=== PATIENT | female | born 1935 | race Caucasian/White ===

== ENCOUNTER 2016-09-02 14:31 | Emergency (ER) | payer OTHER, BC ==
[~2016-09-02] VITALS: Ht 160 cm; Wt 82.8 kg
[~2016-09-02 14:31] MED LIST: ACET-1138 PO; AMOX500C3 PO; ASPEC325 PO; ATV/1 PO; CALCTAB73 PO; CHOL100010 PO; FRRG PO; IBUP-1050 PO; LISI-788 PO; MULT-190 PO; POTA10TA30 PO; PRLSR20 PO; ROPI0.5T15 PO; ROPI1TAB PO; ULT50X PO
[2016-09-02 14:37] VITALS: BP 187/85; PULSE 96; TEMP 36.8; O2SAT 97; Ht 160 cm; Wt 82.8 kg
[2016-09-02] MEDS ORDERED: ASPI81TA28 PO (15:20)
[2016-09-02] MEDS ORDERED: MAGN400T7 PO (15:20)
[2016-09-02] MEDS ORDERED: ASPI325T45 PO (15:20)
--- NOTE | 2016-09-02 15:47 | DIAGNOSTIC IMAGING REPORT ---
ULTRASOUND LEFT LOWER EXTREMITY VENOUS CLINICAL HISTORY: Left leg swelling. COMPARISON STUDY: No priors. TECHNIQUE: Real-time, grayscale, and color Doppler sonography of the deep veins of the left lower extremity was performed from the inguinal crease to the calf. Compression and augmentation were utilized. FINDINGS: There is no sonographic evidence of deep venous thrombosis identified in the left lower extremity. The common femoral, superficial femoral, and popliteal veins are patent and normally compressible. The greater saphenous vein and the profunda femoris vein at the junction with the common femoral vein are clear. The visualized calf veins are patent. A small popliteal cyst measures 5.0 x 0.6 x 4.6 cm. IMPRESSION: 1. There is no sonographic evidence of deep venous thrombosis identified in the left lower extremity. 2. Small popliteal cyst. Electronically signed by: Elliott English M.D. 09/02/2016 3:45 PM Dictated Date/Time: 09/02/2016 3:44 PM
--- NOTE | 2016-09-03 19:54 | EMERGENCY ROOM VISIT NOTE ---
History First contact with patient: 14:43 Chief Complaint: LEG PAIN,LEG INJURY Stated Complaint: POSSIBLE BLOOD CLOT IN LEG History of Present Illness The patient is a 81 year old female who presents to the Emergency Room with complaints of intermittent pain and swelling over the left lower leg. The patient states that she had a left total knee replacement done approximately 3 months ago, and she has been doing well since the surgery. She is undergoing physical therapy, and has noticed her symptoms intermittently. She thought her symptoms were related to deconditioning or the physical therapy itself. She is doing less and less therapy, and continues to note leg pain and swelling. She has not had fever or chills. No chest pain or shortness of breath. She does not report recent travel history. She is concerned about a DVT. She does not have a history of DVT or coagulopathy. Review of Systems More than 10 systems were reviewed and otherwise negative with the exception of history of present illness. Past Medical/Surgical History Medical Problems: (1) GERD (gastroesophageal reflux disease) (2) Hx of squamous cell carcinoma (3) Hypertension Nos (4) Left Knee DJD (5) Macular degeneration (6) Osteoarthritis (7) Restless legs syndrome (RLS) Surgical Problems: (1) H/O cervical spine surgery (2) H/O colonoscopy (3) History of cataract surgery (4) History of hysterectomy (5) Status post Mohs surgery Family History FH: COPD (chronic obstructive pulmonary disease) FATHER FH: rheumatic fever MOTHER ( age 48) Hypertension MOTHER Social History Smoking Status: Never Smoker Marital Status: Housing Status: lives alone Current/Historical Medications Scheduled Aspirin (Aspirin Ec), 81 MG PO QAM Cholecalciferol (Vitamin D), 5,000 INTER.UNIT PO QAM Lisinopril/Hctz (Zestoretic 20MG/25MG), 1 TAB PO QAM Lorazepam (Ativan), 1 MG PO HS Magnesium Oxide (Mg Supplement (Magnesium Oxide), 241.3 MG PO QAM Ocuvite Preservision (Ocuvite Preservision), 1 TAB PO BID Potassium Chloride (Potassium Chloride Cr), 10 MEQ PO BID Ropinirole (Requip), 1 MG PO bedtime Scheduled PRN Amoxicillin (Amoxil), 2,000 MG PO UD PRN for RN Aspirin (Aspirin), 325 MG PO DAILY PRN for TO PREVENT BLOOD CLOTS Ropinirole (Requip), 0.5 MG PO BIDM PRN for restless leg syndrome Allergies Coded Allergies: Adhesives (Verified Allergy, Unknown, RED, IRRITATION WITH TAPE, 09/02/16) Morphine (Unverified Adverse Reaction, Intermediate, VOMITING - PT REQUESTS SHE NOT RECEIVE AGAIN, 09/02/16) Physical Exam Vital Signs Date Time Temp Pulse Resp B/P Pulse Ox O2 Delivery O2 Flow Rate FiO2 09/02/16 14:37 36.8 96 18 187/85 97 Room Air Pain Rating (0-10): 2.0 Physical Exam VITALS: Vitals are noted on the nurse's note and reviewed by myself. Vital signs stable. GENERAL: Well-developed, well-nourished, female, who is in no acute distress and resting comfortably. Patient is cooperative with the examination. HEAD: Normocephalic atraumatic. HEART: Regular rate and rhythm without murmurs gallops or rubs. LUNGS: Clear to auscultation bilaterally without wheezes, rales or rhonchi. No retractions or accessory muscle use. MUSCULOSKELETAL: No muscle atrophy, erythema, or edema noted. Full range of motion without joint tenderness in all extremities. No tenderness to palpation. Normal gait. Strength 5/5 throughout. NEURO: Patient was alert and oriented to person place and time. CN II through XII grossly intact. Medical Decision & Procedures ER Provider Diagnostic Interpretation: ULTRASOUND LEFT LOWER EXTREMITY VENOUS CLINICAL HISTORY: Left leg swelling. COMPARISON STUDY: No priors. TECHNIQUE: Real-time, grayscale, and color Doppler sonography of the deep veins of the left lower extremity was performed from the inguinal crease to the calf. Compression and augmentation were utilized. FINDINGS: There is no sonographic evidence of deep venous thrombosis identified in the left lower extremity. The common femoral, superficial femoral, and popliteal veins are patent and normally compressible. The greater saphenous vein and the profunda femoris vein at the junction with the common femoral vein are clear. The visualized calf veins are patent. A small popliteal cyst measures 5.0 x 0.6 x 4.6 cm. IMPRESSION: 1. There is no sonographic evidence of deep venous thrombosis identified in the left lower extremity. 2. Small popliteal cyst. ED Course Physical exam and history were performed. Nursing notes and EMR were reviewed. Patient appears to have intermittent swelling of her left lower leg after a total knee replacement about 3 months ago. The patient does not have injury or trauma and is concerned for DVT. Ultrasound was performed and is without evidence of a DVT. I suspect the patient's discomfort may be musculoskeletal in nature. This may also be a mild complication of the surgery itself. I recommended the patient rest and elevate her leg. She should follow with her primary care physician with any ongoing or persisting symptoms. She was otherwise invited back to the ER anytime and voiced understanding of this plan. The chart was completed utilizing [employer] Speech Voice Recognition Software. Grammatical errors, random word insertions, pronoun errors, and incomplete sentences are an occasional consequence of this system due to software limitations, ambient noise, and hardware issues. Any formal questions or concerns about the content, text, or information contained within the body of this dictation should be directly addressed to the provider for clarification. . Medical Decision Differential diagnosis: Etiologies such as DVT, musculoskeletal, infection, joint effusion, trauma, lymphedema, idiopathic, CHF, as well as others were entertained.. Impression Primary Impression: Left leg swelling Departure Information Dispostion Home / Self-Care Condition GOOD Forms HOME CARE DOCUMENTATION FORM, IMPORTANT VISIT INFORMATION Patient Instructions A Signature Page, [facility] Additional Instructions You were seen and evaluated today on an emergency basis only. This is not a substitute for, or an effort to provide, complete comprehensive medical care. It is not possible to recognize and treat all injuries or illnesses in a single emergency department visit. For this reason it is recommended that you followup with your primary care physician this week for ongoing care and evaluation. You are welcome to return to the emergency department anytime with new, worsening, or concerning symptoms.
[2017-04-07] MEDS ORDERED: NRV5 PO (16:08)
== END 2016-09-02 16:30 | disposition home or self-care (01) ==
LOC: C.EDB 14:32 → C.EDD 16:30
DX: M79.89 Other specified soft tissue disorders (principal); I10 Essential (primary) hypertension; Z85.828 Personal history of other malignant neoplasm of skin; G25.81 Restless legs syndrome; M17.12 Unilateral primary osteoarthritis, left knee; Z98.49 Cataract extraction status, unspecified eye; Z90.710 Acquired absence of both cervix and uterus; Z79.82 Long term (current) use of aspirin; Z79.899 Other long term (current) drug therapy

== ENCOUNTER → 2016-10-09 | Outpatient (CLI) | payer OTHER, BC ==
[~2016-10-09] MED LIST changes: -ACET-1138 PO; -ASPEC325 PO; +ASPI325T45 PO; +ASPI81TA28 PO; -CALCTAB73 PO; +CHOL1TAB42 PO; -FRRG PO; -IBUP-1050 PO; +MAGN400C2 PO; +MAGN400T7 PO; +NRV5 PO; +PRED-301 PO; -PRLSR20 PO; -ULT50X PO
--- NOTE | 2016-10-09 14:08 | MAMMOGRAPHY REPORT ---
BILATERAL DIGITAL SCREENING MAMMOGRAM WITH CAD: 10/09/2016 CLINICAL HISTORY: Routine screening. Patient has no complaints. TECHNIQUE: Current study was also evaluated with a Computer Aided Detection (CAD) system. Bilatera l CC and MLO views were obtained. COMPARISON: Comparison is made to exams dated: 10/07/2015 mammogram, 10/30/2014 mammogram, 10/04/2014 mammogram, 10/02/2013 mammogram, 09/29/2012 mammogram, and 09/24/2011 mammogram - [facility] enter. BREAST COMPOSITION: There are scattered areas of fibroglandular density in both breasts. FINDINGS: No suspicious masses, calcifications, or areas of architectural distortion are noted in e ither breast. There has been no significant interval change compared to prior exams. Scattered bila teral benign-appearing calcifications are not significantly changed. Asymmetry in the right upper o uter quadrant is stable dating back to the 2007 exam. IMPRESSION: ACR BI-RADS CATEGORY 2: BENIGN There is no mammographic evidence of malignancy. A 1 year screening mammogram is recommended. The p atient will receive written notification of the results. Approximately 10% of breast cancers are not detected with mammography. A negative mammographic repor t should not delay biopsy if a clinically suggestive mass is present. Nichol Whitaker M.D. ah/:10/09/2016 11:57:18 Hand Tube Bender: Mallory MATHEWS(Espinoza)(Brenda), [facility] letter sent: Normal 1/2 BI-RADS Code: ACR BI-RADS Category 2: Benign
== END | disposition home or self-care (01) ==
LOC: C.MAMM 10:23
PROVIDERS: ATTEND Family Medicine
DX: Z12.31 Encounter for screening mammogram for malignant neoplasm of breast (principal)

== ENCOUNTER 2017-04-06 13:09 | Observation (INO) | payer OTHER, BC ==
[~2017-04-06] VITALS: Ht 157.5 cm; Wt 80.5 kg
[~2017-04-06 13:09] MED LIST changes: -CHOL1TAB42 PO; -MAGN400C2 PO; -NRV5 PO; -PRED-301 PO
--- NOTE | 2017-04-06 13:51 | EMERGENCY ROOM VISIT NOTE ---
History Report prepared by Oren: Sandi Shin Under the Supervision of: Dr. Lul Chapman M.D. First contact with patient: 13:31 Chief Complaint: CHEST PAIN Stated Complaint: CHEST PAIN/NECK PAIN/SHOULDER PAIN Nursing Triage Summary: Patient has been having chest/shoulder pain for several days that initially radiated down left arm. Patient has shoulder problems and related this pain to her shoulder pain. Patient went to PCP today for appt where they related she had EKG changes since her EKG in 2011. Patient states the other day her CP was intense with a dull ache. Patient states today her pain was only 3-4/10 and she almost cancelled her appt due to this. Patient recieved 324 ASA and 2 NTG at the PCP with some relief of the pain. Patient relates not N/V, diaphoresis or SOB with the pain. History of Present Illness The patient is a 81 year old female who presents to the Emergency Room with complaints of persistent left shoulder pain that began four days ago. She currently rates her discomfort as a 4/10 in severity. The patient states that she has noticed her pain radiate down her left arm and into her left chest. She reports a history of shoulder problems and states when she couldn't get in to see her massage therapist she scheduled an appointment with her PCP. The patient states that she was found to have an elevated blood pressure today at the office and had an EKG done. She states that she was given 2 nitroglycerin and 324 aspirin that alleviated her pain. The patient states that her pain was worsened yesterday with exertion. She denies any nausea, diaphoresis, or swelling of her lower extremities. The patient denies any history of blood clots. She states that she was recently started on a low dose of steroids for her arthritis. The patient additionally states that 800 mg of Ibuprofen temporarily alleviated her pain. Review of Systems See HPI for pertinent positives and negatives. A total of ten systems were reviewed and were otherwise negative. Past Medical & Surgical Medical Problems: (1) GERD (gastroesophageal reflux disease) (2) HTN (hypertension) (3) Hx of squamous cell carcinoma (4) Macular degeneration (5) Osteoarthritis (6) Restless legs syndrome (RLS) Surgical Problems: (1) H/O cervical spine surgery (2) History of cataract surgery (3) History of hysterectomy (4) Status post Mohs surgery (5) Status post total knee replacement, left (6) Status post total knee replacement, right Family History FH: COPD (chronic obstructive pulmonary disease) FATHER FH: rheumatic fever MOTHER ( age 48) Hypertension MOTHER Social History Smoking Status: Never Smoker Marital Status: Housing Status: lives alone Current/Historical Medications Scheduled Cholecalciferol (Vitamin D), 5,000 UNITS PO DAILY Lisinopril/Hctz (Zestoretic 20MG/25MG), 1 TAB PO QAM Lorazepam (Ativan), 1 MG PO HS Magnesium Oxide (Magnesium Oxide), 1 CAP PO BID Ocuvite Preservision (Ocuvite Preservision), 1 TAB PO BID Potassium Chloride (Potassium Chloride Cr), 10 MEQ PO BID Prednisone (Prednisone), 5 MG PO DAILY Ropinirole (Requip), 1 MG PO bedtime Scheduled PRN Ropinirole (Requip), 0.5 MG PO BIDM PRN for restless leg syndrome Allergies Coded Allergies: Adhesives (Verified Allergy, Unknown, RED, IRRITATION WITH TAPE, 09/02/16) Morphine (Verified Adverse Reaction, Intermediate, VOMITING - PT REQUESTS SHE NOT RECEIVE AGAIN, 04/06/17) Physical Exam Vital Signs Date Time Temp Pulse Resp B/P (MAP) Pulse Ox O2 Delivery O2 Flow Rate FiO2 04/06/17 14:56 54 17 215/98 97 Room Air 04/06/17 13:58 37 04/06/17 13:54 99 Room Air 04/06/17 13:53 59 21 206/93 97 Room Air 04/06/17 13:31 99 Room Air 04/06/17 13:24 99 04/06/17 13:20 65 04/06/17 13:16 36.6 64 17 206/89 99 Room Air Physical Exam GENERAL: Awake, alert, well-appearing, NAD, no diaphoresis HENT: Normocephalic, atraumatic. EYES: Normal conjunctiva. Sclera non-icteric. NECK: Supple. No nuchal rigidity. FROM. No JVD. RESPIRATORY: CTAB, no rhonchi, wheezing, crackles CARDIAC: RRR, no MRG ABDOMEN: Soft, NTND, BS+ MSK: No reproducible chest wall TTP, no LE edema, no calf tenderness or pain. NEURO: GCS 15, CN 2-12 intact, moves all 4s on command SKIN: No rash or jaundice noted. Medical Decision & Procedures ER Provider Diagnostic Interpretation: X-ray: Per my interpretation, radiologist review. CHEST ONE VIEW PORTABLE CLINICAL HISTORY: Atypical chest pain COMPARISON STUDY: 05/07/2016 FINDINGS: The heart is mildly enlarged. There is no overt failure. There is no lobar consolidation. There are no pleural effusions. There are minor basilar atelectatic changes. Surgical clips project over the base the left neck. Arthritic changes are present within the shoulders.[ IMPRESSION: No active disease in the chest. Electronically signed by: Paulino Moreira M.D. 04/06/2017 2:13 PM Dictated Date/Time: 04/06/2017 2:12 PM Laboratory Results 04/06/17 13:30 Red Blood Count 3.84, Mean Corpuscular Volume 96.4, Mean Corpuscular Hemoglobin 32.3, Mean Corpuscular Hemoglobin Concent 33.5, Mean Platelet Volume 10.0, Neutrophils (%) (Auto) 64.2, Lymphocytes (%) (Auto) 25.2, Monocytes (%) (Auto) 7.9, Eosinophils (%) (Auto) 1.8, Basophils (%) (Auto) 0.4, Neutrophils # (Auto) 3.67, Lymphocytes # (Auto) 1.44, Monocytes # (Auto) 0.45, Eosinophils # (Auto) 0.10, Basophils # (Auto) 0.02 04/06/17 13:30 Test 04/06/17 13:30 04/06/17 13:52 White Blood Count 5.71 K/uL (4.8-10.8) Red Blood Count 3.84 M/uL (4.2-5.4) Hemoglobin 12.4 g/dL (12.0-16.0) Hematocrit 37.0 % (37-47) Mean Corpuscular Volume 96.4 fL (80-100) Mean Corpuscular Hemoglobin 32.3 pg (25-34) Mean Corpuscular Hemoglobin Concent 33.5 g/dl (32-36) Platelet Count 265 K/uL (130-400) Mean Platelet Volume 10.0 fL (7.4-10.4) Neutrophils (%) (Auto) 64.2 % Lymphocytes (%) (Auto) 25.2 % Monocytes (%) (Auto) 7.9 % Eosinophils (%) (Auto) 1.8 % Basophils (%) (Auto) 0.4 % Neutrophils # (Auto) 3.67 K/uL (1.4-6.5) Lymphocytes # (Auto) 1.44 K/uL (1.2-3.4) Monocytes # (Auto) 0.45 K/uL (0.11-0.59) Eosinophils # (Auto) 0.10 K/uL (0-0.5) Basophils # (Auto) 0.02 K/uL (0-0.2) RDW Standard Deviation 45.6 fL (36.4-46.3) RDW Coefficient of Variation 13.1 % (11.5-14.5) Immature Granulocyte % (Auto) 0.5 % Immature Granulocyte # (Auto) 0.03 K/uL (0.00-0.02) Anion Gap 5.0 mmol/L (3-11) Est Creatinine Clear Calc Drug Dose 67.1 ml/min Estimated GFR () 95.5 Estimated GFR (Non- 82.4 BUN/Creatinine Ratio 27.9 (10-20) Calcium Level 9.8 mg/dl (8.5-10.1) Phosphorus Level 2.1 mg/dl (2.5-4.9) Magnesium Level 1.7 mg/dl (1.8-2.4) Total Bilirubin 0.4 mg/dl (0.2-1) Direct Bilirubin 0.1 mg/dl (0-0.2) Aspartate Amino Transf (AST/SGOT) 22 U/L (15-37) Alanine Aminotransferase (ALT/SGPT) 32 U/L (12-78) Alkaline Phosphatase 85 U/L (45-117) Total Protein 6.8 gm/dl (6.4-8.2) Albumin 3.7 gm/dl (3.4-5.0) Lipase 173 U/L (73-393) Prothrombin Time 10.6 SECONDS (9.0-12.0) Prothromb Time International Ratio 1.0 (0.9-1.1) Activated Partial Thromboplast Time 28.0 SECONDS (21.0-31.0) Partial Thromboplastin Ratio 1.1 Laboratory results reviewed by me ECG Indication: chest pain Rate (beats per minute): 62 Rhythm: normal sinus Findings: 1st degree AV block, T-wave inversion (isolated in V3), other ( prolonged MT, nromal QRS and QTC, no other STS changes or T wave inversions) ED Course 1339: The patient was evaluated in room C10. A complete history and physical exam was performed. 1523: I discussed the patients case with Temo Bautista PA-C. She is going to evaluate the patient for further treatment. 1540: I reevaluated the patient and she is doing well. I discussed the exam findings with her and I discussed the treatment plan. She verbalized complete understanding and agreement. She will be evaluated for further treatment. Medical Decision Triage Nursing notes reviewed. The patient's presentation and history were concerning for ACS, atypical chest pain, bronchitis, pneumonia, arthritis. The patient is a 81 year old female who presents to the Emergency Room with complaints of persistent left shoulder pain that began four days ago. The patient already received 324 ASA and 2 nitro. Patient is 81-year-old history of hypertension who presents with chief complaint of chest pain. Patient has had 3-4 days of intermittent left-sided chest pain as well as shoulder pain radiating to the left upper extremity. Patient is accompanied to progress diaphoresis or nausea or vomiting. Patient did receive full dose aspirin as well as nitroglycerin in clinic today. He states the nitroglycerin helped her chest pain. Patient states sometimes just pain is exertional. EKG did show isolated T-wave inversion in lead 3 as well as an anterior Q-wave. Patient is currently chest pain-free. Given patient's lack of a cardiac workup in the past I spoke with the admitting team and agree the patient would benefit from an observation admission. Medication Reconcilliation Current Medication List: was personally reviewed by me Blood Pressure Screening Patient's blood pressure: Elevated blood pressure Blood pressure disposition: Referred to PCP Consults Time Called: 151 Consulting Physician: Temo Bautista PA-C Returned Call: 1523 I discussed the patients case with Temo Bautista PA-C. She is going to evaluate the patient for further treatment. Impression Primary Impression: Atypical chest pain Additional Impression: HTN (hypertension) Scribe Attestation The scribe's documentation has been prepared under my direction and personally reviewed by me in its entirety. I confirm that the note above accurately reflects all work, treatment, procedures, and medical decision making performed by me. Departure Information Dispostion Being Evaluated By Hospitalist Referrals Kayce Hansen DO (PCP) Problem Qualifiers
[2017-04-06] MEDS ORDERED: PRED-301 PO (14:12)
[2017-04-06] MEDS ORDERED: CHOL1TAB42 PO (14:12)
--- NOTE | 2017-04-06 14:14 | DIAGNOSTIC IMAGING REPORT ---
CHEST ONE VIEW PORTABLE CLINICAL HISTORY: Atypical chest pain COMPARISON STUDY: 05/07/2016 FINDINGS: The heart is mildly enlarged. There is no overt failure. There is no lobar consolidation. There are no pleural effusions. There are minor basilar atelectatic changes. Surgical clips project over the base the left neck. Arthritic changes are present within the shoulders.[ IMPRESSION: No active disease in the chest. Electronically signed by: Paulino Moreira M.D. 04/06/2017 2:13 PM Dictated Date/Time: 04/06/2017 2:12 PM
[2017-04-06 14:42] LABS: PARTIAL THROMBOPLASTIN RATIO 1.1; PROTHROMBIN TIME (PATIENT) 10.6 SECONDS (9.0-12.0)
[2017-04-06 14:48] LABS: BASO % 0.4 %; BASO ABS # 0.02 K/uL (0-0.2); COMPLETE YES; EOS % 1.8 %; IG% 0.5 %; LYMPH % 25.2 %; LYMPH ABS # 1.44 K/uL (1.2-3.4); MEAN CELL VOLUME 96.4 fL (80-100); MEAN CORPUSCULAR HEMOGLOBIN 32.3 pg (25-34); MEAN CORPUSCULAR HGB CONC 33.5 g/dl (32-36); MONO % 7.9 %; NEUT % 64.2 %; PLATELET COUNT 265 K/uL (130-400); RED BLOOD COUNT 3.84 M/uL (4.2-5.4); WHITE BLOOD COUNT 5.71 K/uL (4.8-10.8)
[2017-04-06 15:03] LABS: BLOOD UREA NITROGEN 20 mg/dl (7-18); BUN/CREATININE RATIO 27.9 (10-20); CALCIUM 9.8 mg/dl (8.5-10.1); CARBON DIOXIDE 28 mmol/L (21-32); CHLORIDE 101 mmol/L (98-107); GLUCOSE 114 mg/dl (70-99); MAGNESIUM 1.7 mg/dl (1.8-2.4); POTASSIUM 4.1 mmol/L (3.5-5.1); SODIUM 134 mmol/L (136-145)
[2017-04-06 15:07] LABS: ALKALINE PHOSPHATASE 85 U/L (45-117); ALT/SGPT 32 U/L (12-78); AST/SGOT 22 U/L (15-37); PHOSPHORUS 2.1 mg/dl (2.5-4.9)
[2017-04-06] MEDS ORDERED: ACETAMINOPHEN 325 MG TAB PO PRN (16:15)
[2017-04-06] MEDS ORDERED: NITROGLYCERIN 0.4 MG SL PER TAB CHARGE SL PRN (16:15)
[2017-04-06] MEDS ORDERED: ONDANSETRON INJ 2 MG/ML 2 ML VIAL IV PRN (16:15)
[2017-04-06] MEDS ORDERED: MAGN400C2 PO (16:25)
[2017-04-06] MEDS ORDERED: IV FLUIDS COMPLETED PRN (16:30)
--- NOTE | 2017-04-06 18:32 | History and Physical ---
History & Physical Date & Time of Service: Apr 06, 2017 ~ 15:45 Chief Complaint: Left Shoulder Pain, Chest Pain Primary Care Physician: Kayce Hansen DO History of Present Illness 81 year old female who was referred by her PCP's office for left shoulder and chest pain. Patient reports a long standing history of arthritis and "problems with her shoulder." She reports that a few days ago her left shoulder started to hurt. She reports it would radiate down into the scapula, into the left chest , and partially down the left arm. Pain has been persistent over the past few days. She reports it is best in the morning and progressively gets worse throughout the day. She has been taking NSAIDs without relief. Pain is non exertional. She notes yesterday while taking her usual walk of 1 mile that she felt more fatigued. She denies shortness of breath, orthopnea, or lower extremity edema. She denies abdominal pain, nausea, vomiting, or diarrhea. No fever or chills. She denies any urinary symptoms. Patient went to her PCP today and was found to have a high BP and some EKG changes. She was given 4 baby ASA and nitro SL. She reports the pain eased after receiving the nitro. In the ED, patient's EKG shows new Q-wave in lead III and T-wave inversion in V1. Machine BP readings were high however my manual was 148/78. Troponin is negative. Past Medical/Surgical History Medical Problems: (1) GERD (gastroesophageal reflux disease) Status: Chronic (2) HTN (hypertension) Status: Chronic (3) Hx of squamous cell carcinoma Status: Chronic (4) Macular degeneration Status: Chronic (5) Osteoarthritis Status: Chronic (6) Restless legs syndrome (RLS) Status: Chronic Surgical Problems: (1) H/O cervical spine surgery Status: Chronic (2) History of cataract surgery Status: Chronic (3) History of hysterectomy Status: Chronic (4) Status post Mohs surgery Status: Chronic (5) Status post total knee replacement, left Status: Chronic (6) Status post total knee replacement, right Status: Chronic Family History FH: COPD (chronic obstructive pulmonary disease) FATHER FH: rheumatic fever MOTHER ( age 48) Hypertension MOTHER Social History Smoking Status: Never Smoker Alcohol Use: 1-2 glasses wine / night Immunizations History of Influenza Vaccine: Yes Influenza Vaccine Date: May 23, 2016 History of Tetanus Vaccine?: Yes Tetanus Immunization Date: May 26, 2010 History of Pneumococcal: Yes Pneumococcal Date: Nov 27, 2014 Multi-Drug Resistant Organisms History of MDRO: No Allergies Coded Allergies: Adhesives (Verified Allergy, Unknown, RED, IRRITATION WITH TAPE, 09/02/16) Morphine (Verified Adverse Reaction, Intermediate, VOMITING - PT REQUESTS SHE NOT RECEIVE AGAIN, 04/06/17) Home Medications Scheduled Cholecalciferol (Vitamin D), 5,000 UNITS PO DAILY Lisinopril/Hctz (Zestoretic 20MG/25MG), 1 TAB PO QAM Lorazepam (Ativan), 1 MG PO HS Magnesium Oxide (Magnesium Oxide), 1 CAP PO BID Ocuvite Preservision (Ocuvite Preservision), 1 TAB PO BID Potassium Chloride (Potassium Chloride Cr), 10 MEQ PO BID Prednisone (Prednisone), 5 MG PO DAILY Ropinirole (Requip), 1 MG PO bedtime Scheduled PRN Ropinirole (Requip), 0.5 MG PO BIDM PRN for restless leg syndrome Review of Systems ROS per HPI, all other systems reviewed and negative Physical Exam Vital Signs Date Time Temp Pulse Resp B/P (MAP) Pulse Ox O2 Delivery O2 Flow Rate FiO2 04/06/17 16:27 58 20 97 Room Air 168/92 04/06/17 14:56 54 17 215/98 97 Room Air 04/06/17 13:58 37 04/06/17 13:54 99 Room Air 04/06/17 13:53 59 21 206/93 97 Room Air 04/06/17 13:31 99 Room Air 04/06/17 13:24 99 04/06/17 13:20 65 04/06/17 13:16 36.6 64 17 206/89 99 Room Air General Appearance: no apparent distress Head: normocephalic Eyes: normal inspection ENT: hearing grossly normal Neck: supple, no JVD Respiratory/Chest: lungs clear, normal breath sounds, no respiratory distress Cardiovascular: regular rate, rhythm, no edema, normal peripheral pulses Abdomen/GI: normal bowel sounds, non tender, soft Extremities/Musculoskelatal: + pertinent finding (tenderness over left acromion process and left scapula) Neurologic/Psych: no motor/sensory deficits, alert, normal mood/affect, oriented x 3 Skin: normal color, warm/dry Diagnostics Laboratory Results Results Past 24 Hours Test 8/15/17 13:30 04/06/17 13:52 Range/Units White Blood Count 5.71 4.8-10.8 K/uL Red Blood Count 3.84 4.2-5.4 M/uL Hemoglobin 12.4 12.0-16.0 g/dL Hematocrit 37.0 37-47 % Mean Corpuscular Volume 96.4 80-100 fL Mean Corpuscular Hemoglobin 32.3 25-34 pg Mean Corpuscular Hemoglobin Concent 33.5 32-36 g/dl Platelet Count 265 130-400 K/uL Mean Platelet Volume 10.0 7.4-10.4 fL Neutrophils (%) (Auto) 64.2 % Lymphocytes (%) (Auto) 25.2 % Monocytes (%) (Auto) 7.9 % Eosinophils (%) (Auto) 1.8 % Basophils (%) (Auto) 0.4 % Neutrophils # (Auto) 3.67 1.4-6.5 K/uL Lymphocytes # (Auto) 1.44 1.2-3.4 K/uL Monocytes # (Auto) 0.45 0.11-0.59 K/uL Eosinophils # (Auto) 0.10 0-0.5 K/uL Basophils # (Auto) 0.02 0-0.2 K/uL RDW Standard Deviation 45.6 36.4-46.3 fL RDW Coefficient of Variation 13.1 11.5-14.5 % Immature Granulocyte % (Auto) 0.5 % Immature Granulocyte # (Auto) 0.03 0.00-0.02 K/uL Sodium Level 134 136-145 mmol/L Potassium Level 4.1 3.5-5.1 mmol/L Chloride Level 101 98-107 mmol/L Carbon Dioxide Level 28 21-32 mmol/L Anion Gap 5.0 3-11 mmol/L Blood Urea Nitrogen 20 7-18 mg/dl Creatinine 0.70 0.60-1.20 mg/dl Est Creatinine Clear Calc Drug Dose 67.1 ml/min Estimated GFR () 95.5 Estimated GFR (Non- 82.4 BUN/Creatinine Ratio 27.9 10-20 Random Glucose 114 70-99 mg/dl Calcium Level 9.8 8.5-10.1 mg/dl Phosphorus Level 2.1 2.5-4.9 mg/dl Magnesium Level 1.7 1.8-2.4 mg/dl Total Bilirubin 0.4 0.2-1 mg/dl Direct Bilirubin 0.1 0-0.2 mg/dl Aspartate Amino Transf (AST/SGOT) 22 15-37 U/L Alanine Aminotransferase (ALT/SGPT) 32 12-78 U/L Alkaline Phosphatase 85 45-117 U/L Troponin I < 0.015 0-0.045 ng/ml Total Protein 6.8 6.4-8.2 gm/dl Albumin 3.7 3.4-5.0 gm/dl Lipase 173 73-393 U/L Prothrombin Time 10.6 9.0-12.0 SECONDS Prothromb Time International Ratio 1.0 0.9-1.1 Activated Partial Thromboplast Time 28.0 21.0-31.0 SECONDS Partial Thromboplastin Ratio 1.1 Diagnostic Radiology CXR IMPRESSION: No active disease in the chest. Impression Assessment and Plan CHEST / LEFT SHOULDER PAIN - admit to tele - patient presenting with persistent left shoulder and chest pain x 4 days; was at PCPs office and was found to have high BP and EKG changes; received nitro with improvement in the pain - in the ED, EKG shows new Q-wave in lead III and t-wave inversion in lead V1; initial troponin negative - risk factors: HTN, obesity - symptoms seems to be musculoskeletal in nature however due to EKG changes, will rule out ACS - continue to cycle cardiac enzymes, check resting echo - PRN nitro and EKG with further chest pain - s/p 4 baby ASA, will continue with 81 daily - check lipids in AM - case discussed with Dr. Oswald HTN - machine BP readings high, however on my manual check 148/78 - will continue Lisinopril/HCTZ - manual BP checks - noted recent addition of daily Prednisone which may be contributing to higher BPs BRADYCARDIA - sinus ac, asymptomatic - monitor in tele HYPOMAGNESEMIA, HYPOPHOSPHATEMIA - mild, will replace - follow up in AM OSTEOARTHRITIS - continue Prednisone RLS - continue Requip DVT PROPHYLAXIS - SQ Lovenox DISPO - The patient will be placed as observation status for now until further work up is complete. Attending Addendum Pt was seen and examined. Agreed with Darshana FLYNN physical exam, assessment and plan. She was sent from PCP office to the ER for chest pain, left shoulder pain and elevated BP. Pt said that the left shoulder pain and chest pain have been going on for the last few days. chest pain is reproducible with palpation. Currently her pain seems to improved. Denies any palpitation, dizziness and SOB. General- No acute distress Head- atraumatic Eyes- PERRL, EOMI ENT- oropharynx clear Neck- supple, no JVD Lungs- clear to auscultation Heart- bradycardia, no murmur Abdomen- normal bowel sounds, soft, nontender Extremities- no calf tenderness Neuro- alert, oriented x 3; PERRL, EOMI Skin- warm & dry A/P Chest pain Mostly atypical Need to r/o ACS EKG showed T wave inversion in lead V1 Continue asa 81 mg Follow up CM will get a resting Echo in am cardiology consult continue monitor in telemetry Lab, Imaging and EKG reviewed Please refer to Darshana FLYNN documentation for other problems. Zheng Hinkle MD Resuscitation Status FULL RESUSCITATION VTE Prophylaxis VTE Risk Assessment Done? Y/N: Yes Risk Level: Moderate Given or contraindicated: Enoxaparin (Lovenox)SQ
[2017-04-06 18:35] VITALS: BP 145/70; PULSE 49; TEMP 36.6; O2SAT 99
[2017-04-06] MEDS: ROPINIROLE HCL 0.25 MG TAB PO PRN ×2 (18:49→23:51)
[2017-04-06 19:00] VITALS: O2SAT 96; Ht 157.5 cm; Wt 80.5 kg
[2017-04-06] MEDS: POT PHOSPHATE MONOBASIC W/ SOD TAB PO SCH ×2 (19:44→20:54)
[2017-04-06] MEDS: MAGNESIUM SULFATE 1GM / D5W 1 GM in PREMIXED IN D5W 100 ML IV SCH ×2 (19:45→22:04)
[2017-04-06] MEDS: POTASSIUM CHLORIDE 10 MEQ TABCR PO SCH (20:54)
[2017-04-06] MEDS: MAGNESIUM OXIDE 400 MG TAB PO SCH (20:54)
[2017-04-06] MEDS ORDERED: ENOXAPARIN 40 MG/0.4 ML SYR SC SCH (21:00)
[2017-04-06] MEDS ORDERED: ROPINIROLE HCL 1 MG TAB PO SCH (21:00)
[2017-04-06] MEDS ORDERED: LORAZEPAM 1 MG TAB ONE (22:53)
[2017-04-06 23:25] VITALS: BP 128/72; PULSE 50; TEMP 36.6; O2SAT 98
[2017-04-07] MEDS ORDERED: NURSING VERBAL MED ORDER ONE (01:30)
[2017-04-07] MEDS ORDERED: ROPINIROLE HCL 0.25 MG TAB PO ONE (01:45)
[2017-04-07 04:15] VITALS: BP 155/75; PULSE 55; TEMP 36.5; O2SAT 99
[2017-04-07 06:00] LABS: HEMATOCRIT 35.2 % (37-47); MEAN CELL VOLUME 94.9 fL (80-100); MEAN CORPUSCULAR HEMOGLOBIN 32.9 pg (25-34); MEAN CORPUSCULAR HGB CONC 34.7 g/dl (32-36); MEAN PLATELET VOLUME 9.6 fL (7.4-10.4); PLATELET COUNT 232 K/uL (130-400); RED BLOOD COUNT 3.71 M/uL (4.2-5.4); WHITE BLOOD COUNT 5.03 K/uL (4.8-10.8)
[2017-04-07 06:39] LABS: BUN/CREATININE RATIO 24.2 (10-20); CALCIUM 8.9 mg/dl (8.5-10.1); CREATININE 0.6 mg/dl (0.60-1.20); POTASSIUM 3.5 mmol/L (3.5-5.1)
[2017-04-07 06:52] LABS: ESTIMATED AVERAGE GLUCOSE 114 mg/dl; HA1C FLAG Normal (Normal)
[2017-04-07 06:58] LABS: CHOLESTEROL/HDL RATIO 1.8; PHOSPHORUS 3.1 mg/dl (2.5-4.9)
[2017-04-07 07:28] VITALS: BP 158/80; PULSE 48; TEMP 36.4; O2SAT 97
[2017-04-07] MEDS: MAGNESIUM OXIDE 400 MG TAB PO SCH (08:27)
[2017-04-07] MEDS: POTASSIUM CHLORIDE 10 MEQ TABCR PO SCH (08:27)
[2017-04-07] MEDS: POT PHOSPHATE MONOBASIC W/ SOD TAB PO SCH ×2 (08:28→14:31)
--- NOTE | 2017-04-07 08:35 | ECHOCARDIOGRAM REPORT ---
*NOTICE TO RECEIVING [employer] This information is strictly Confidential and protected under [place] law. [place] law prohibits you from making any further disclosure of this information unless further disclosure is expressly permitted by the written consent of the person to whom it pertains or is authorized by law. A general authorization for the release of medical or other information is not sufficient for this purpose. Hospital accepts no responsibility if the information is made available to any other person, INCLUDING THE PATIENT. Interpretation Summary * The study was technically adequate. * -- Conclusions -- * Sinus bradycardia was present during the echocardiogram evaluation. * The left ventricular wall motion is normal. * The LV Ejection Fraction = 60-65%. * The left atrium is mildly dilated. * There is moderate mitral regurgitation. Procedure Details * A complete two-dimensional transthoracic echocardiogram was performed (2D, M-mode, Doppler and color flow Doppler). Left Ventricle * The left ventricle is normal in size. * There is normal left ventricular wall thickness. * Left ventricular systolic function is normal. * Ejection Fraction = 60-65%. * The left ventricular wall motion is normal. Right Ventricle * The right ventricle is normal size. * The right ventricular systolic function is normal as assessed by tricuspid annular plane systolic excursion (TAPSE) (normal >1.5 cm). Atria * The left atrium is mildly dilated. * Right atrial size is normal. * There is no evidence of atrial septal defect, but resolution does not allow assessment for a patent foramen ovale. Mitral Valve * The mitral valve anatomy is normal. * The mitral valve is normal. * There is no mitral valve stenosis. * There is moderate mitral regurgitation. * Significant mitral regurgitation is absent. Tricuspid Valve * The tricuspid valve is normal. * There is no tricuspid stenosis. * Significant tricuspid regurgitation is absent. Aortic Valve * The aortic valve is trileaflet. * Aortic stenosis is absent. * There is no significant aortic regurgitation. Pulmonic Valve * The pulmonary valve is not well seen, but the Doppler examination is normal without significant regurgitation or stenosis. Great Vessels * The aortic root and proximal ascending aorta are normal sized. Pericardium/Pleural * There is no pericardial effusion. Great Vessels * Normal inferior vena cava diameter and respiratory variation suggests normal central venous pressure. MMode 2D Measurements and Calculations LVAd ap4 26.5 cm\S\2 LVLd ap4 7.3 cm EDV(MOD-sp4) 79.0 ml LVAs ap4 14.4 cm\S\2 LVLs ap4 5.6 cm ESV(MOD-sp4) 31.0 ml EF(MOD-sp4) 60.8 % LVAd ap2 18.5 cm\S\2 LVLd ap2 6.3 cm EDV(MOD-sp2) 46.0 ml LVAs ap2 10.4 cm\S\2 LVLs ap2 5.3 cm ESV(MOD-sp2) 18.0 ml EF(MOD-sp2) 60.9 % CO(MOD-sp4) 2.0 l/min CI(MOD-sp4) 1.0 l/min/m\S\2 SV(MOD-sp4) 48.0 ml SI(MOD-sp4) 25.6 ml/m\S\2 CO(MOD-sp2) 1.1 l/min CI(MOD-sp2) 0.61 l/min/m\S\2 SV(MOD-sp2) 28.0 ml SI(MOD-sp2) 14.9 ml/m\S\2
[2017-04-07] MEDS: ROPINIROLE HCL 0.25 MG TAB PO PRN (08:53)
[2017-04-07] MEDS ORDERED: LISINOPRIL/HCTZ 20/25MG TAB PO SCH (09:00)
[2017-04-07] MEDS ORDERED: CEROVITE ADV FORMULA TAB PO SCH (09:00)
[2017-04-07] MEDS ORDERED: ASPIRIN 81 MG ECTAB PO SCH (09:00)
[2017-04-07] MEDS ORDERED: CHOLECALCIFEROL 1000 INTER.UNIT TAB PO SCH (09:00)
--- NOTE | 2017-04-07 09:11 | ECHOCARDIOGRAM REPORT ---
*NOTICE TO RECEIVING [employer] This information is strictly Confidential and protected under [place] law. [place] law prohibits you from making any further disclosure of this information unless further disclosure is expressly permitted by the written consent of the person to whom it pertains or is authorized by law. A general authorization for the release of medical or other information is not sufficient for this purpose. Hospital accepts no responsibility if the information is made available to any other person, INCLUDING THE PATIENT. Interpretation Summary * The study was technically adequate. * Name: NADINE SANDHU Study Date: 04/07/2017 07:39 AM BP: 158/80 mmHg Patient Location: [facility] HR: 48 : 1935 (M/d/yyyy) Gender: Female Height: 63 in Age: 81 yrs Ethnicity: [place] Weight: 186 lb Ordering Physician: Darshana Anand Referring Physician: Jovani Chase Performed By: Kasey Li RDCS Reason For Study: Chest pain BSA: 1.9 m2 * -- Conclusions -- * Sinsu bradycardia was present during the echocardiogram evaluation. * The left ventricular wall motion is normal. * The LV Ejection Fraction = 60-65%. * The left atrium is mildly dilated. * There is moderate mitral regurgitation. Procedure Details * A complete two-dimensional transthoracic echocardiogram was performed (2D, M-mode, Doppler and color flow Doppler). Left Ventricle * The left ventricle is normal in size. * There is normal left ventricular wall thickness. * Left ventricular systolic function is normal. * Ejection Fraction = 60-65%. * The left ventricular wall motion is normal. Right Ventricle * The right ventricle is normal size. * The right ventricular systolic function is normal as assessed by tricuspid annular plane systolic excursion (TAPSE) (normal >1.5 cm). Atria * The left atrium is mildly dilated. * Right atrial size is normal. * There is no evidence of atrial septal defect, but resolution does not allow assessment for a patent foramen ovale. Mitral Valve * The mitral valve anatomy is normal. * The mitral valve is normal. * There is no mitral valve stenosis. * There is moderate mitral regurgitation. * Significant mitral regurgitation is absent. Tricuspid Valve * The tricuspid valve is normal. * There is no tricuspid stenosis. * Significant tricuspid regurgitation is absent. Aortic Valve * The aortic valve is trileaflet. * Aortic stenosis is absent. * There is no significant aortic regurgitation. Pulmonic Valve * The pulmonary valve is not well seen, but the Doppler examination is normal without significant regurgitation or stenosis. Great Vessels * The aortic root and proximal ascending aorta are normal sized. Pericardium/Pleural * There is no pericardial effusion. Great Vessels * Normal inferior vena cava diameter and respiratory variation suggests normal central venous pressure. MMode 2D Measurements and Calculations IVSd 0.99 cm LVIDd 4.5 cm LVIDs 3.1 cm LVPWd 0.84 cm IVS/LVPW 1.2 FS 31.5 % EDV(Teich) 91.1 ml ESV(Teich) 36.9 ml EF(Teich) 59.5 % EDV(cubed) 89.5 ml ESV(cubed) 28.8 ml EF(cubed) 67.8 % LV mass(C)d 134.4 grams LV mass(C)dI 71.7 grams/m\S\2 CO(Teich) 2.2 l/min CI(Teich) 1.2 l/min/m\S\2 SV(Teich) 54.3 ml SI(Teich) 28.9 ml/m\S\2 CO(cubed) 2.5 l/min CI(cubed) 1.3 l/min/m\S\2 SV(cubed) 60.7 ml SI(cubed) 32.4 ml/m\S\2 Ao root diam 3.2 cm Ao root area 8.1 cm\S\2 ACS 1.8 cm LA dimension 3.6 cm asc Aorta Diam 3.3 cm LA/Ao 1.1 LVOT diam 2.0 cm LVOT area 3.0 cm\S\2 LVAd ap4 26.5 cm\S\2 LVLd ap4 7.3 cm EDV(MOD-sp4) 79.0 ml LVAs ap4 14.4 cm\S\2 LVLs ap4 5.6 cm ESV(MOD-sp4) 31.0 ml EF(MOD-sp4) 60.8 % LVAd ap2 18.5 cm\S\2 LVLd ap2 6.3 cm EDV(MOD-sp2) 46.0 ml LVAs ap2 10.4 cm\S\2 LVLs ap2 5.3 cm ESV(MOD-sp2) 18.0 ml EF(MOD-sp2) 60.9 % CO(MOD-sp4) 2.0 l/min CI(MOD-sp4) 1.0 l/min/m\S\2 SV(MOD-sp4) 48.0 ml SI(MOD-sp4) 25.6 ml/m\S\2 CO(MOD-sp2) 1.1 l/min CI(MOD-sp2) 0.61 l/min/m\S\2 SV(MOD-sp2) 28.0 ml SI(MOD-sp2) 14.9 ml/m\S\2 Doppler Measurements and Calculations MV E max juni 92.8 cm/sec MV A max juni 70.6 cm/sec MV E/A 1.3 MV dec time 0.22 sec Ao V2 max 152.0 cm/sec Ao max PG 9.2 mmHg Ao max PG (full) 4.3 mmHg PHILIP(V,A) 2.2 cm\S\2 PHILIP(V,D) 2.2 cm\S\2 LV V1 max PG 5.0 mmHg LV V1 max 111.6 cm/sec MR max juni 639.2 cm/sec MR max PG 163.4 mmHg MR mean juni 492.9 cm/sec MR mean PG 109.6 mmHg MR VTI 262.1 cm PA V2 max 84.2 cm/sec PA max PG 2.8 mmHg PA acc slope 344.8 cm/sec\S\2 PA acc time 0.18 sec PI max juni 146.6 cm/sec PI max PG 8.6 mmHg PI dec slope 119.1 cm/sec\S\2 PI P1/2t 360.5 msec TR max juni 233.9 cm/sec PA pr(Accel) -0.22 mmHg
--- NOTE | 2017-04-07 10:35 | Progress Note ---
Medicine Progress Note Date & Time of Visit: Apr 07, 2017 at 10:14. Subjective Pt was seen and examined Sitting at the edge of the bed just finished eating breakfast Pt said that she feels fine she said that she does not have any pain in her shoulder and chest pain anymore she said that she did not sleep very well because she only got half of the requip denies any chest pain, palpitation, dizziness and sob Objective Last 8 Hrs Date Time Temp Pulse Resp B/P (MAP) Pulse Ox O2 Delivery O2 Flow Rate FiO2 04/07/17 07:28 36.4 48 20 158/80 (106) 97 Room Air 04/07/17 04:15 36.5 55 18 155/75 (101) 99 Room Air 04/07/17 04:00 Room Air Physical Exam: General- No acute distress Head- atraumatic Eyes- PERRL, EOMI ENT- oropharynx clear Neck- supple, no JVD Lungs- clear to auscultation Heart- regular rhythm; no murmur Abdomen- normal bowel sounds Extremities- no pretibial edema, no calf tenderness Neuro- alert, oriented x 3; PERRL, EOMI; no facial palsy Skin- warm & dry Laboratory Results: Last 24 Hours Test 04/06/17 13:30 04/06/17 13:52 04/06/17 19:00 04/06/17 19:49 White Blood Count 5.71 K/uL Red Blood Count 3.84 M/uL Hemoglobin 12.4 g/dL Hematocrit 37.0 % Mean Corpuscular Volume 96.4 fL Mean Corpuscular Hemoglobin 32.3 pg Mean Corpuscular Hemoglobin Concent 33.5 g/dl Platelet Count 265 K/uL Mean Platelet Volume 10.0 fL Neutrophils (%) (Auto) 64.2 % Lymphocytes (%) (Auto) 25.2 % Monocytes (%) (Auto) 7.9 % Eosinophils (%) (Auto) 1.8 % Basophils (%) (Auto) 0.4 % Neutrophils # (Auto) 3.67 K/uL Lymphocytes # (Auto) 1.44 K/uL Monocytes # (Auto) 0.45 K/uL Eosinophils # (Auto) 0.10 K/uL Basophils # (Auto) 0.02 K/uL RDW Standard Deviation 45.6 fL RDW Coefficient of Variation 13.1 % Immature Granulocyte % (Auto) 0.5 % Immature Granulocyte # (Auto) 0.03 K/uL Sodium Level 134 mmol/L Potassium Level 4.1 mmol/L Chloride Level 101 mmol/L Carbon Dioxide Level 28 mmol/L Anion Gap 5.0 mmol/L Blood Urea Nitrogen 20 mg/dl Creatinine 0.70 mg/dl Est Creatinine Clear Calc Drug Dose 67.1 ml/min Estimated GFR () 95.5 Estimated GFR (Non- 82.4 BUN/Creatinine Ratio 27.9 Random Glucose 114 mg/dl Estimated Average Glucose 114 mg/dl Hemoglobin A1c 5.6 % Calcium Level 9.8 mg/dl Phosphorus Level 2.1 mg/dl Magnesium Level 1.7 mg/dl Total Bilirubin 0.4 mg/dl Direct Bilirubin 0.1 mg/dl Aspartate Amino Transf (AST/SGOT) 22 U/L Alanine Aminotransferase (ALT/SGPT) 32 U/L Alkaline Phosphatase 85 U/L Troponin I < 0.015 ng/ml < 0.015 ng/ml Total Protein 6.8 gm/dl Albumin 3.7 gm/dl Lipase 173 U/L Prothrombin Time 10.6 SECONDS Prothromb Time International Ratio 1.0 Activated Partial Thromboplast Time 28.0 SECONDS Partial Thromboplastin Ratio 1.1 Creatine Kinase MB Ratio Creatine Kinase MB 2.0 ng/ml Test 04/07/17 00:30 04/07/17 05:27 Creatine Kinase MB 1.9 ng/ml Creatine Kinase MB Ratio Troponin I < 0.015 ng/ml White Blood Count 5.03 K/uL Red Blood Count 3.71 M/uL Hemoglobin 12.2 g/dL Hematocrit 35.2 % Mean Corpuscular Volume 94.9 fL Mean Corpuscular Hemoglobin 32.9 pg Mean Corpuscular Hemoglobin Concent 34.7 g/dl RDW Standard Deviation 44.9 fL RDW Coefficient of Variation 13.0 % Platelet Count 232 K/uL Mean Platelet Volume 9.6 fL Sodium Level 137 mmol/L Potassium Level 3.5 mmol/L Chloride Level 102 mmol/L Carbon Dioxide Level 28 mmol/L Anion Gap 7.0 mmol/L Blood Urea Nitrogen 15 mg/dl Creatinine 0.60 mg/dl Est Creatinine Clear Calc Drug Dose 74.7 ml/min Estimated GFR () 100.5 Estimated GFR (Non- 86.7 BUN/Creatinine Ratio 24.2 Random Glucose 94 mg/dl Calcium Level 8.9 mg/dl Phosphorus Level 3.1 mg/dl Magnesium Level 2.0 mg/dl Triglycerides Level 116 mg/dl Cholesterol Level 188 mg/dl HDL Cholesterol 107 mg/dl LDL Cholesterol, Calculated 58 mg/dl VLDL Cholesterol, Calculated 23 mg/dl Cholesterol/HDL Ratio 1.8 Assessment & Plan CHEST PAIN Mostly atypical Need to r/o ACS EKG showed T wave inversion in lead V1 Continue asa 81 mg All 3 sets cardiac market are negative Cardiology on board Dobutamine stress echo was negative for ischemia. Asymptomatic today Continue monitor telemetry Echo done showed * Sinus bradycardia was present during the echocardiogram evaluation. * The left ventricular wall motion is normal. * The LV Ejection Fraction = 60-65%. * The left atrium is mildly dilated. * There is moderate mitral regurgitation. LEFT SHOULDER PAIN Continue Tylenol prn Stable HTN BP elevated Pt said that her BP usually runs in the 120's Will repeat BP manually If BP stays elevated, will adjust BP med Continue monitor BP SINUS BRADYCARDIA Asymptomatic Discussed with pt, will consider to decrease the requip because it can cause bradycardia continue monitor ELECTROLYTES IMBALANCE Mg and phos stable continue monitor electrolytes OSTEOARTHRITIS On Prednisone RLS On requip will consider to decrease the requip. DVT PROPHYLAXIS - SQ Lovenox CODE STATUS Full code Consultants: Cardiology Current Inpatient Medications: Current Inpatient Medications Medications (Trade) Dose Ordered Sig/Ellyn Route Start Time Stop Time Status Last Admin Dose Admin Enoxaparin Sodium (Lovenox Inj) 40 mg Q24H SC 04/06/17 21:00 05/06/17 20:59 04/06/17 20:53 40 MG Acetaminophen (Tylenol Tab) 650 mg Q4H PRN PO 04/06/17 16:15 05/06/17 16:14 04/07/17 01:59 650 MG Ondansetron HCl (Zofran Inj) 4 mg Q6H PRN IV 04/06/17 16:15 05/06/17 16:14 Nitroglycerin (Nitrostat Tab) 0.4 mg UD PRN SL 04/06/17 16:15 05/06/17 16:14 Aspirin (Ecotrin Tab) 81 mg QAM PO 04/07/17 09:00 05/07/17 08:59 04/07/17 08:28 81 MG Miscellaneous (Iv Fluids Completed) 1 ea PRN PRN N/A 04/06/17 16:30 04/06/18 16:29 Potassium/ Phosphorus/Sodium (Phospha 250 Neutral 155-852-130 Mg) 1 tab QID PO 04/06/17 17:00 04/07/17 13:01 04/07/17 08:28 1 TAB HCTZ/Lisinopril (Prinzide 20-25MG Tab) 1 tab QAM PO 04/07/17 09:00 05/07/17 08:59 04/07/17 08:28 1 TAB Multivitamins/ Minerals (Multivitamin W/ Minerals Tab) 1 tab DAILY PO 04/07/17 09:00 05/07/17 08:59 04/07/17 08:27 1 TAB Prednisone (PredniSONE TAB) 5 mg DAILY PO 04/07/17 09:00 05/07/17 08:59 04/07/17 08:28 5 MG Ropinirole HCl (Requip Tab) 0.5 mg BIDM PRN PO 04/06/17 16:30 05/06/17 16:29 04/07/17 08:53 0.5 MG Ropinirole HCl (Requip Tab) 1 mg HS PO 04/06/17 21:00 05/06/17 20:59 Future Hold Cholecalciferol (Vitamin D Tab) 5,000 inter.unit DAILY PO 04/07/17 09:00 05/07/17 08:59 04/07/17 08:27 5,000 INTER.UNIT Magnesium Oxide (Mag-Ox Tab) 400 mg BID PO 04/06/17 21:00 05/06/17 20:59 04/07/17 08:27 400 MG Potassium Chloride (Klor-Con M10) 10 meq BID PO 04/06/17 21:00 05/06/17 20:59 04/07/17 08:27 10 MEQ Lorazepam (Ativan Tab) 1 mg HS PO 04/07/17 21:00 05/07/17 20:59 04/06/17 22:55 1 MG
--- NOTE | 2017-04-07 10:48 | Cardiology Consultation ---
Cardiology Consultation Date of Consultation: Apr 07, 2017 History of Present Illness Patient is a 81 year old female seen in cardiac consultation per the request of RINA Choe for the evaluation of shoulder pain radiating to the chest. The patient describes herself as being physically active. She tries to walk regularly and she performs her own housework. She describes that she had been in her normal state of health last week and had done a lot of work around the house including vacuuming and cleaning and post a green party over the weekend. Several days ago she noted a pain started at the area of the left shoulder blade and subsequently radiated to the left shoulder, chest, and then the left arm. It is been persistent over the last few days. It is not particularly, with aerobic exertion or with movement of her arm. She had been taking nonsteroidal anti-inflammatory medications without relief. She does that she walked a mile two days ago and felt very tired. Should been seen by primary care yesterday was found to have high blood pressure and there was concern of ST changes on EKG. She presented to the emergency department with initial EKG performed yesterday 04/06/17 revealing normal sinus rhythm at 62 bpm with first- degree AV block, borderline criteria for anterior infarction noted with poor R- wave progression in lead V3. There is T-wave inversion noted in lead V1 as well as lead III which is a normal variant. Repeat EKG this morning 04/07/17 revealed sinus bradycardia 40 bpm, otherwise normal EKG. Telemetry last night revealed sinus rhythm and sinus bradycardia as low as 40 bpm overnight. Cardiac enzymes have been negative 3. Chest x-ray is negative for acute cardiac partners findings, the radiologist did make note of bilateral arthritic changes noted in the shoulders. 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 She is a nonsmoker. Family History: Father with history of smoking and alcohol related liver disease, no definite heart disease. Mother is a relatively young woman due to complications of rheumatic fever as a child. Review Of Systems See above for pertinent positives & negatives. A total of 10 systems reviewed and were otherwise negative. Allergies Coded Allergies: Adhesives (Verified Allergy, Unknown, RED, IRRITATION WITH TAPE, 09/02/16) Morphine (Verified Adverse Reaction, Intermediate, VOMITING - PT REQUESTS SHE NOT RECEIVE AGAIN, 04/06/17) Medications Reported Home Medications Medications Dose Route/Sig Max Daily Dose Days Date Category Magnesium Oxide 400 Mg Cap 1 Cap PO BID 90 04/06/17 Reported Prednisone 5 Mg Tab 5 Mg PO DAILY 04/06/17 Reported Vitamin D (Cholecalciferol) 5,000 Unit Tab 5,000 Units PO DAILY 04/06/17 Reported Ocuvite Preservision (Multivitamins/Minerals) 1 Tab Tab 1 Tab PO BID 05/07/16 Reported Potassium Chloride Cr (Potassium Chloride) 10 Meq Tab 10 Meq PO BID 12/06/14 Reported Zestoretic 20MG/25MG (HCTZ/Lisinopril) Tab 1 Tab PO QAM 12/06/14 Reported Requip (Ropinirole HCl) 1 Mg Tab 1 Mg PO BEDTIME 09/10/14 Reported Requip (Ropinirole HCl) 0.5 Mg Tab 0.5 Mg PO BIDM PRN 09/10/14 Reported Ativan (Lorazepam) 1 Mg Tab 1 Mg PO HS 09/10/14 Reported Physical Exam Vital Signs (Last 8hrs): Last 8 Hrs Date Time Temp Pulse Resp B/P (MAP) Pulse Ox O2 Delivery O2 Flow Rate FiO2 04/07/17 07:28 36.4 48 20 158/80 (106) 97 Room Air 04/07/17 04:15 36.5 55 18 155/75 (101) 99 Room Air 04/07/17 04:00 Room Air General Appearance: Alert and Oriented x3. NAD. Head: Normocephalic Atraumatic. Eyes: PERRLA, EOMI, conjunctiva and sclera clear Neck: Supple. No carotid bruits noted. No JVD. No HJD. Respiratory: Breath sounds clear to auscultation bilaterally. No w/r/r. Cardiovascular: Reg rate and rhythm. S1 and S2 noted. No murmurs, rubs, gallops. PMI non displace. Abdomen: Normal bowel sounds, soft nontender. no abdominal bruits. Extremities: No edema, no clubbing or cyanosis. distal pulses 2/4 bilaterally. Neuro: No focal deficits. Psychiatric: Normal affect. Data Last Resulted 04/07/17 05:27 Last Resulted 04/07/17 05:27 Past 24 Hours Test 04/06/17 13:30 04/06/17 13:52 04/06/17 19:00 04/06/17 19:49 Range/Units Troponin I < 0.015 < 0.015 0-0.045 ng/ml Prothromb Time International Ratio 1.0 0.9-1.1 Prothrombin Time 10.6 9.0-12.0 SECONDS Creatine Kinase MB Ratio 0-3.0 Creatine Kinase MB 2.0 0.5-3.6 ng/ml Test 04/07/17 00:30 Range/Units Creatine Kinase MB 1.9 0.5-3.6 ng/ml Creatine Kinase MB Ratio 0-3.0 Troponin I < 0.015 0-0.045 ng/ml EKG and chest x-ray as noted above. Telemetry as noted above Assessment & Plan Impression: 81-year-old female 1. Left shoulder pain, somewhat atypical for angina 2. Hypertension, elevated blood pressure on admission of 206/89 recorded, but reportedly her blood pressures have been better when they have been taken with a manual cuff, with most recent reading of 150/80 3. Sinus bradycardia Discussion/recommendations: Cardiac enzymes negative, EKG is negative for ischemia 2 tracings here in the hospital. At present, she has had a resting echocardiogram revealed normal resting wall motion. Moderate mitral regurgitation was present which is unchanged compared to prior echo done in 2015. At present I recommend proceeding with a stress test. I think we should proceed with a pharmacologic stress test, to be running stress echocardiogram. Given her age, complains of generalized fatigue and bilateral knee replacements I anticipate she would not be old to walk adequately on a treadmill for a diagnostic test. Also sinus bradycardia is noted at rest and I'm not optimistic that she would make target heart rate. She states that she does have a long-standing history of slow heart beats and she watches her heart rate on a fit bit device , so this does not appear to be a new finding. Keren Oswald,
[2017-04-07 11:21] VITALS: BP 132/72; PULSE 51; TEMP 36.8; O2SAT 97
[2017-04-07 12:09] VITALS: PULSE 35
[2017-04-07] MEDS ORDERED: ATROPINE SULFATE 0.1 MG/ML 5ML SYR ONE (13:15)
[2017-04-07] MEDS ORDERED: DOBUTamine HCL 12.5 MG/ML 20 ML VIAL ONE (13:15)
[2017-04-07] MEDS ORDERED: METOPROLOL TARTRATE 1 MG/ML VIAL ONE (13:15)
--- NOTE | 2017-04-07 13:57 | Cardiology Progress Note ---
Cardiology Progress Note Date of Service Apr 07, 2017. Cardiology Progress Note Dobutamine stress echo was negative for ischemia. Hypertensive blood pressure response noted. Impression: Musculoskeletal shoulder pain. Known osteoarthritis, recently seen by rheumatology for generalized arthralgia and h/o elevated CRP and was placed on low dose prednisone pending further evaluation, and work up for inflammatory arthritis. Uncontrolled HTN, perhaps new addition of prednisone on 03/24 is contributing. Sinus bradycardia. Chronic , asymptomatic Plan: Add amlodipine 5 mg to lisinopril/ HCTZ. Stable for discharge Follow up with PCP.
[2017-04-07] MEDS ORDERED: AMLODIPINE BESYLATE 5 MG TAB PO ONE (14:00)
--- NOTE | 2017-04-07 15:51 | DOBUTAMINE ECHO ---
*NOTICE TO RECEIVING LIBERTARIAN AGENCY This information is strictly Confidential and protected under [place] law. [place] law prohibits you from making any further disclosure of this information unless further disclosure is expressly permitted by the written consent of the person to whom it pertains or is authorized by law. A general authorization for the release of medical or other information is not sufficient for this purpose. Hospital accepts no responsibility if the information is made available to any other person, INCLUDING THE PATIENT. Interpretation Summary * Name: NADINE SANDHU Study Date: 04/07/2017 12:36 PM BP: 155/50 mmHg * Patient Location: .2T\S\S238\S\2 HR: 55 * : 1935 (M/d/yy) Gender: Female Height: 62 in * Age: 81 yrs Ethnicity: CA Weight: 177 lb * Ordering Physician: Duran Oswald * Referring Physician: Jovani Chase * Performed By: Kasey Li RDCS * * Reason For Study: Chest pain * BSA: 1.8 m2 * -- Conclusions -- * STRESS STUDY: * Normal pharmacologic stress echocardiogram. No echocardiographic evidence of myocardial ischemia having achieved heart rate adequate for diagnostic purposes. * No symptoms suggestive of angina were induced. * The patient's presenting symptom of left shoulder pain radiating to chest was not reproduced. * The heart rate response to pharmacologic stress was normal. * The blood pressure response to pharmacologic stress was hypertensive. * Equivocal ST segment depression was noted on the stress EKG as described below. Procedure Details * DOBUTAMINE ECHO, CPT#70094 * A contrast injection of Definity was performed to improve assessment of LV function. * Contrast was injected into an intravenous site in the right arm. * One vial of Definity ultrasound contrast was diluted in normal saline to a total volume of 10 ml. A total of '8' ml of solution was administered during imaging. * Lot # [id number] of Definity utilized for procedure. * Expiration date APR 09. * The attending nurse who injected the contrast agent was Don Nam RN. Left Ventricle * The left ventricle is normal in size. There is normal left ventricular wall thickness. Left ventricular systolic function is normal. Ejection Fraction = 60-65%. * Resting wall motion: Normal. Stress wall motion: Appropriate increase in Left ventricular systolic function and decrease in cavity size. No stress induced segmental wall motion abnormalities. Stress Parameters * The baseline EKG revealed sinus bradycardia at [address] segments. Poor R wave progression was noted in lead V2 and therefore and age undetermined septal infarction cannot be excluded. * Equivocal [address] depression was noted in the inferior and lateral leads with pharmacologic stress , that rapidly resolved in the post pharmacologic stress recovery interval. * The stress portion of this study was personally supervised by the undersigned interpreting physician. * Rest heart rate was '55' BPM. * Rest blood pressure was '155/50' * Maximum heart rate achieved was 129 bpm. * Maximum heart rate was 91 % of maximum age-predicted heart rate. * Maximum blood pressure was '209/41' * Maximum Dobutamine infusion rate was '30' mcg/kg/min. * A total of 10 mg of intravenous Atropine was used to supplement Dobutamine for heart rate response. * Dobutamine infusion was terminated due to achieving target heart rate * A total of 10 mg of IV Metoprolol was administered to reverse Dobutamine-induced tachycardia. * The patient did not exhibit any symptoms during drug infusion.
[2017-04-07] MEDS ORDERED: NRV5 PO (16:08)
--- NOTE | 2017-04-07 16:14 | Discharge Instructions ---
Discharge Instructions Date of Service Apr 07, 2017. Admission Reason for Admission: Chest Pain Discharge Discharge Diagnosis / Problem: Atypical Chest pain, Left Shoulder pain, Hypertension, Sinus bradycardia Discharge Goals Goal(s): Decrease discomfort, Improve function, Improve disease control Activity Recommendations Activity Limitations: resume your previous activity (as tolerated) . Instructions / Follow-Up Instructions / Follow-Up Follow up with Dr. Enrique (Dr. Chase Partner, since he will be unavailable) on @ 10:05 Monitor Blood pressure and bring blood pressure log to your next appointment with your doctor Follow a low salt diet New medication Amlodipine 5 mg by mouth daily Current Hospital Diet Patient's current hospital diet: AHA Diet (Heart Healthy) Discharge Diet Recommended Diet: AHA Diet (Heart Healthy), Low Sodium Diet (2gm Na) Pending Studies Studies pending at discharge: no Laboratory Results Hemoglobin A1c Test 04/06/17 13:30 Range/Units Estimated Average Glucose 114 mg/dl Hemoglobin A1c 5.6 4.5-5.6 % Lipid Panel Test 04/07/17 05:27 Range/Units Triglycerides Level 116 0-150 mg/dl Cholesterol Level 188 0-200 mg/dl HDL Cholesterol 107 mg/dl Cholesterol/HDL Ratio 1.8 LDL Cholesterol, Calculated 58 mg/dl Medical Emergencies . Who to Call and When: Medical Emergencies: If at any time you feel your situation is an emergency, please call 911 immediately. . Non-Emergent Contact Non-Emergency issues call your: Primary Care Provider Call Non-Emergent contact if: your pain is not controlled, you have any medication questions . . "Provider Documentation" section prepared by Zheng Hinkle. . VTE Core Measure Inpt VTE Proph given/why not?: Enoxaparin (Lovenox)SQ
[2017-04-07 16:28] VITALS: BP 132/72; PULSE 35; TEMP 36.8; O2SAT 97
[2017-04-07] MEDS ORDERED: LORAZEPAM 1 MG TAB PO SCH (21:00)
[2017-04-08] MEDS ORDERED: AMLODIPINE BESYLATE 5 MG TAB PO SCH (09:00)
--- NOTE | 2017-04-11 07:52 | Discharge Summary ---
Discharge Summary Date of Service Apr 11, 2017. Discharge Summary Admission Date: Apr 06, 2017 at 16:11 Discharge Date: Apr 07, 2017 Discharge Disposition: Home Principal Diagnosis: Atypical Chest pain Secondary Diagnoses/Problems: Left Shoulder pain Hypertension Sinus bradycardia Electrolytes imbalance RLS Procedures: CHEST ONE VIEW PORTABLE CLINICAL HISTORY: Atypical chest pain COMPARISON STUDY: 05/07/2016 FINDINGS: The heart is mildly enlarged. There is no overt failure. There is no lobar consolidation. There are no pleural effusions. There are minor basilar atelectatic changes. Surgical clips project over the base the left neck. Arthritic changes are present within the shoulders.[ IMPRESSION: No active disease in the chest. Electronically signed by: Paulino Moreira M.D. 04/06/2017 2:13 PM Dictated Date/Time: 04/06/2017 2:12 PM Consultations: Cardiology Medication Reconciliation New Medications: Amlodipine Besylate (Amlodipine Besylate) 5 Mg Tab 5 MG PO QAM for 30 Days, #30 TAB Continued Medications: Cholecalciferol (Vitamin D) 5,000 Unit Tab 5000 UNITS PO DAILY Lisinopril/Hctz (Zestoretic 20MG/25MG) Tab 1 TAB PO QAM, TAB Lorazepam (Ativan) 1 Mg Tab 1 MG PO HS, TAB Magnesium Oxide (Magnesium Oxide) 400 Mg Cap 1 CAP PO BID for 90 Days, #180 CAP 3 Refills Ocuvite Preservision (Ocuvite Preservision) 1 Tab Tab 1 TAB PO BID, TAB Potassium Chloride (Potassium Chloride Cr) 10 Meq Tab 10 MEQ PO BID Prednisone (Prednisone) 5 Mg Tab 5 MG PO DAILY Ropinirole (Requip) 0.5 Mg Tab 0.5 MG PO BIDM PRN for restless leg syndrome, TAB Ropinirole (Requip) 1 Mg Tab 1 MG PO bedtime, TAB Admission Information HPI (per Admitting provider): 81 year old female who was referred by her PCP's office for left shoulder and chest pain. Patient reports a long standing history of arthritis and "problems with her shoulder." She reports that a few days ago her left shoulder started to hurt. She reports it would radiate down into the scapula, into the left chest , and partially down the left arm. Pain has been persistent over the past few days. She reports it is best in the morning and progressively gets worse throughout the day. She has been taking NSAIDs without relief. Pain is non exertional. She notes yesterday while taking her usual walk of 1 mile that she felt more fatigued. She denies shortness of breath, orthopnea, or lower extremity edema. She denies abdominal pain, nausea, vomiting, or diarrhea. No fever or chills. She denies any urinary symptoms. Patient went to her PCP today and was found to have a high BP and some EKG changes. She was given 4 baby ASA and nitro SL. She reports the pain eased after receiving the nitro. In the ED, patient's EKG shows new Q-wave in lead III and T-wave inversion in V1. Machine BP readings were high however my manual was 148/78. Troponin is negative. Physical Exam (per Admitting): General Appearance: no apparent distress Head: normocephalic Eyes: normal inspection ENT: hearing grossly normal Neck: supple, no JVD Respiratory/Chest: lungs clear, normal breath sounds, no respiratory distress Cardiovascular: regular rate, rhythm, no edema, normal peripheral pulses Abdomen/GI: normal bowel sounds, non tender, soft Extremities/Musculoskelatal: + pertinent finding (tenderness over left acromion process and left scapula) Neurologic/Psych: no motor/sensory deficits, alert, normal mood/affect, oriented x 3 Skin: normal color, warm/dry Hospital Course CHEST PAIN Mostly atypical Need to r/o ACS EKG showed T wave inversion in lead V1 Continue asa 81 mg All 3 sets cardiac market are negative Cardiology on board Dobutamine stress echo was negative for ischemia. Asymptomatic today Continue monitor telemetry Echo done showed * Sinus bradycardia was present during the echocardiogram evaluation. * The left ventricular wall motion is normal. * The LV Ejection Fraction = 60-65%. * The left atrium is mildly dilated. * There is moderate mitral regurgitation. LEFT SHOULDER PAIN Continue Tylenol prn Stable HTN BP elevated Pt said that her BP usually runs in the 120's Will repeat BP manually If BP stays elevated, will adjust BP med Continue monitor BP SINUS BRADYCARDIA Asymptomatic Discussed with pt, will consider to decrease the requip because it can cause bradycardia continue monitor ELECTROLYTES IMBALANCE Mg and phos stable continue monitor electrolytes OSTEOARTHRITIS On Prednisone RLS On requip will consider to decrease the requip. DVT PROPHYLAXIS - SQ Lovenox CODE STATUS Full code Total time spent on discharge = 35 minutes This includes examination of the patient, discharge planning, medication reconciliation, and communication with other providers. Discharge Instructions Discharge Instructions Date of Service Apr 07, 2017. Admission Reason for Admission: Chest Pain Discharge Discharge Diagnosis / Problem: Atypical Chest pain, Left Shoulder pain, Hypertension, Sinus bradycardia Discharge Goals Goal(s): Decrease discomfort, Improve function, Improve disease control Activity Recommendations Activity Limitations: resume your previous activity (as tolerated) . Instructions / Follow-Up Instructions / Follow-Up Follow up with Dr. Enrique (Dr. Chase Partner, since he will be unavailable) on @ 10:05 Monitor Blood pressure and bring blood pressure log to your next appointment with your doctor Follow a low salt diet New medication Amlodipine 5 mg by mouth daily Current Hospital Diet Patient's current hospital diet: AHA Diet (Heart Healthy) Discharge Diet Recommended Diet: AHA Diet (Heart Healthy), Low Sodium Diet (2gm Na) Pending Studies Studies pending at discharge: no Laboratory Results Hemoglobin A1c Test 04/06/17 13:30 Range/Units Estimated Average Glucose 114 mg/dl Hemoglobin A1c 5.6 4.5-5.6 % Lipid Panel Test 04/07/17 05:27 Range/Units Triglycerides Level 116 0-150 mg/dl Cholesterol Level 188 0-200 mg/dl HDL Cholesterol 107 mg/dl Cholesterol/HDL Ratio 1.8 LDL Cholesterol, Calculated 58 mg/dl Medical Emergencies . Who to Call and When: Medical Emergencies: If at any time you feel your situation is an emergency, please call 911 immediately. . Non-Emergent Contact Non-Emergency issues call your: Primary Care Provider Call Non-Emergent contact if: your pain is not controlled, you have any medication questions . . "Provider Documentation" section prepared by Zheng Hnikle. . VTE Core Measure Inpt VTE Proph given/why not?: Enoxaparin (Lovenox)SQ Additional Copies To Kayce Hansen,Jovani Díaz III, M.D.; Olivia ENRIQUE M.D.
== END 2017-04-07 16:50 | disposition home or self-care (01) ==
LOC: EDBD 13:09 → C.EDC 13:10 → C.2T 16:11 → ENRESERV 16:47
PROVIDERS: ADMIT Internal Medicine; ATTEND Internal Medicine
DX: R07.89 Other chest pain (principal); M25.512 Pain in left shoulder; I10 Essential (primary) hypertension; R00.1 Bradycardia, unspecified; E87.8 Other disorders of electrolyte and fluid balance, not elsewhere classified; K21.9 Gastro-esophageal reflux disease without esophagitis; H35.30 Unspecified macular degeneration; G25.81 Restless legs syndrome; M19.90 Unspecified osteoarthritis, unspecified site; Z79.899 Other long term (current) drug therapy

== ENCOUNTER → 2017-10-12 | Outpatient (CLI) | payer OTHER, BC ==
[~2017-10-12] MED LIST changes: -AMOX500C3 PO; -ASPI325T45 PO; -ASPI81TA28 PO; -CHOL100010 PO; +CHOL1TAB42 PO; +MAGN400C2 PO; -MAGN400T7 PO; +NRV5 PO; +PRED-301 PO
--- NOTE | 2017-10-13 08:02 | MAMMOGRAPHY REPORT ---
BILATERAL DIGITAL SCREENING MAMMOGRAM TOMOSYNTHESIS WITH CAD: 10/12/2017 CLINICAL HISTORY: Routine screening. Patient has no complaints. TECHNIQUE: Breast tomosynthesis in addition to standard 2D mammography was performed. Current study was also evaluated with a Computer Aided Detection (CAD) system. COMPARISON: Comparison is made to exams dated: 10/09/2016 mammogram, 10/07/2015 mammogram, 10/04/2014 m ammogram, 10/02/2013 mammogram, 09/29/2012 mammogram, and 09/24/2011 mammogram - [facility]. BREAST COMPOSITION: There are scattered areas of fibroglandular density in both breasts. FINDINGS: There are mild vascular calcifications in the breasts. Numerous scattered benign rim calci fications. A focal asymmetry in the upper outer middle one third of the right breast appear similar on all available prior mammograms dating back to at least 09/10/2008, therefore likely benign. There are stable loosely grouped punctate microcalcifications in the lateral aspect of each breast. No ne w suspicious mass, architectural distortion or cluster of microcalcifications is seen. IMPRESSION: ACR BI-RADS CATEGORY 1: NEGATIVE There is no mammographic evidence of malignancy. A 1 year screening mammogram is recommended. The pa tient will receive written notification of the results. Approximately 10% of breast cancers are not detected with mammography. A negative mammographic report should not delay biopsy if a clinically suggestive mass is present. Stefanie Gill M.D. ay/:10/12/2017 15:59:25 Electrical Prospecting Operator: Isidra MATHEWS(Espinoza)(Brenda), [facility] letter sent: Normal 1/2 BI-RADS Code: ACR BI-RADS Category 1: Negative
== END | disposition home or self-care (01) ==
LOC: C.MAMM 10:22
PROVIDERS: ATTEND Family Medicine
DX: Z12.31 Encounter for screening mammogram for malignant neoplasm of breast (principal)

== ENCOUNTER 2020-12-19 16:09 | Inpatient (IN) ==
[2020-12-19] MEDS ORDERED: ATROPINE SULFATE 0.1 MG/ML 5ML SYR IV ONE (16:38)
[2020-12-19] MEDS ORDERED: SODIUM CHLORIDE 0.9% 500 ML IV STA (16:42)
[2020-12-19 16:50] LABS: Basophils # (auto) 0.01 K/uL (0-0.2); Basophils % (auto) 0.1 %; Eosinophils # (auto) 0.09 K/uL (0-0.5); Eosinophils % (auto) 1.2 %; Hematocrit (blood only) 34.9 % (37-47); Immature Granulocytes # (auto) 0.03 K/uL (0.00-0.02); Immature Granulocytes % (auto) 0.4 %; Lymphocytes # (auto) 2.14 K/uL (1.2-3.4); Lymphocytes % (auto) 28.3 %; Mean Corpuscular Hemoglobin 33.1 pg (25-34); Mean Corpuscular Hgb Conc 34.4 g/dL (32-36); Mean Corpuscular Volume 96.1 fL (80-100); Mean Platelet Volume 10.4 fL (7.4-10.4); Monocytes # (auto) 0.65 K/uL (0.11-0.59); Monocytes % (auto) 8.6 %; Neutrophils # (auto) 4.64 K/uL (1.4-6.5); Neutrophils % (auto) 61.4 %; Platelet Count 256 K/uL (130-400); RDW Coefficient of Variation 13.9 % (11.5-14.5); Red Blood Count 3.63 M/uL (4.2-5.4); White Blood Count 7.56 K/uL (4.8-10.8)
[2020-12-19] MEDS ORDERED: CALCIUM GLUCONATE 1,000 MG/60 ML BAG IV STA ×2 (16:51→16:53)
[2020-12-19] MEDS ORDERED: INSULIN HUMAN REGULAR PER UNIT 10 UNITS in SYRINGE 9.9 ML IV STA (16:53)
[2020-12-19 16:55] LABS: iSTAT Creatinine 3.2 mg/dl (0.6-1.3); iSTAT Hemoglobin 12.2 g/dl (12.0-16.0); iSTAT Ionized Calcium 1.3 mmol/l (1.12-1.32); iSTAT Potassium 5.9 mmol/L (3.3-5.0)
[2020-12-19] MEDS ORDERED: SODIUM BICARBONATE 8.4% 150 MEQ in DEXTROSE 5% 1,000 ML IV STA (16:55)
[2020-12-19 16:59] LABS: Prothrombin Time 10.1 Seconds (9.0-12.0)
[2020-12-19 17:00] LABS: Appearance Urine Cloudy (Clear); Bacteria Urine Automated Negative (Negative); Bilirubin Urine Negative (Negative); Blood Urine Negative (Negative); Color Urine Dark Yellow; Epithelial Cell Urine Auto 20-30 /lpf (0-5); Glucose Urine UA Negative (Negative); Ketones Urine Trace (Negative); Leukocyte Esterase Urine Negative (Negative); Nitrite Urine Negative (Negative); Protein Urine Trace (Negative); Specific Gravity Urine 1.022 (1.000-1.030); Urobilinogen Urine Negative (Negative)
--- NOTE | 2020-12-19 17:04 | XRay Report ---
XR chest 1V portable CLINICAL HISTORY: Atypical chest pain COMPARISON STUDY: No previous studies for comparison. FINDINGS: The heart is borderline enlarged. There is no failure. No focal pulmonary consolidation. Th ere are no pleural effusions. Calcific tendinopathy is shoulders is suspected. There is a right upper quadrant calcification unchanged from the prior study.[ IMPRESSION: No active disease in the chest. ACT 112: Negative or not required by law. Electronically signed by: Paulino Moreira M.D. 12/19/2020 5:03 PM
[2020-12-19 17:07] LABS: Alanine Aminotransferase 42 U/L (12-78); Albumin Level 3.9 gm/dl (3.4-5.0); Aspartate Aminotransferase 30 U/L (15-37); Bilirubin Direct 0.2 mg/dl (0-0.2); Blood Urea Nitrogen 67 mg/dl (7-18); Calcium 9.6 mg/dl (8.5-10.1); Carbon Dioxide 24 mmol/L (21-32); Chloride 103 mmol/L (98-107); Creatinine Clr Calc Pharmacy 15.5 ml/min; Est GFR (African American) 17.5; Est GFR (Non-African American) 15.1; Glucose 155 mg/dl (70-99); Lipase 260 U/L (73-393); Magnesium 2.6 mg/dl (1.8-2.4); Potassium 5.9 mmol/L (3.5-5.1); Sodium 134 mmol/L (136-145)
--- NOTE | 2020-12-19 17:09 | Emergency Department Note ---
Impression & Plan Symptomatic bradycardia, Positive Lyme disease serology, Acute hyperkalemia, Acute renal failure ED Provider Note NAME: NADINE SANDHU AGE: 85 SEX: F ARRIVES VIA: Walk-In INFORMANT: Patient, ED PROVIDER(S): Siddharth Lei MD CHIEF COMPLAINT: fatigue/weakness, decreased urination. PLAN: Disposition: Admit MEDICAL DECISION MAKING: The patient is a pleasant 85-year-old woman with a past medical history of osteoarthritis, hypertension who presents to the emergency department with the complaint of decreased urination over the past couple of days where she has felt fatigued, weak and drowsy for the past couple of days. She reports decreased o ral intake due to decreased appetite but denies nausea or vomiting. She reports some mild sinus congestion but denies any fevers, chills, cough, congestion, nausea, vomiting or diarrhea. She reports she has noticed decreased urination but did not feel like she is retaining urine. On arrival the patient fatigued appearing but no acute distress, afebrile with heart rate in the mid 30s and blood pressure initially 90s/40s but the patient was mentating normally. Upon lying supine blood pressure improved to 100-120s/40s-60s. On exam the patient appears clinically dry. She has no focal neurologic deficits. She has no abdominal tenderness. Wasserman catheter was placed in urine was obtained without evidence of retention with ~150cc present. Initial EKG demonstrates likely junctional bradycardic rhythm suspected complete heart block. No clearly discernible P waves and QRS is not widened. I-STAT chemistry was performed and demonstrates acute renal failure with creatinine of 3.2 and potassium of 5.9. There is no metabolic acidosis noted. Thus, given suspicion for acute renal failure contributing to her bradycardia treatment for this was initiated. However, external pacing pads placed as a precaution if needed as well as atropine to the bedside if she were to become symptomatic or persistently hypotensive. CXR negative for acute cardiopulmonary process. WBC, Hbg, and platelets wnl. Lab chemistry confirms hyperkalemia to 5.9 with acute renal failure, Cr. 2.79 with BUN/Cr > 20 c/w patient's clinically dry appearance. LFTs without significant abnormality. CPK wnl. Troponin negative/undetectable. UA without convincing evidence of infection. Lyme screen was positive for IgM AB. Thus, will treat with CTX given heart block on arrival. Following initial treatment for hyperkalemia with gentle IVF hydration, Calcium, Insulin and bicarbonate, patient spontaneously converted to sinus bradycardia without evidence of high- grade block. CT abd/pelvis was negative for acute process. Patient ordered for Patiromer for potassium removal. Patient did have additional UOP during her ED observation. Thus, given clinical responsiveness to treament, unlikely to require emergent dialysis at this time. Patient agrees with plan for admission for further management. Case was discussed with Temo Bee[facility] who will evaluate the patient for admission. Triage Nursing notes reviewed and agree them. Prior medical records reviewed Vital Signs: reviewed and remarkable for bradycardia, hypotension. Differential diagnosis: Infection, dehydration, metabolic abnormality, hypo/hyperglycemia, electrolyte disturbance, anemia, hypoxia, cardiac sources, intracerebral event, toxicologic, neurologic, as well as other pathologies. ER treatment provided: See below. Diagnostics interpreted by me: ECG 1626: Likely junctional bradycardic rhythm, 35bpm, suspected complete heart block. No clearly discernible P waves. QRS is not widened. No overt ST elevation or depression. ECG 1556: Sinus bradycardia, 52 bpm, no ectopy, no overt ST elevation or depression. Cardiac Monitoring: An order for continuous cardiac monitoring was placed and demonstrated suspected junctional bradycardia, 35bpm, no ectopy. Laboratory studies: See below Imaging studies: See below Consultation(s): Case was discussed with Temo Bee, [facility] who will evaluate the patient for admission. HPI: The patient is a pleasant 85-year-old woman with a past medical history of osteoarthritis, hypertension who presents to the emergency department with the complaint of decreased urination over the past couple of days where she has felt fatigued, weak and drowsy for the past couple of days. She reports decreased oral intake due to decreased appetite but denies nausea or vomiting. She reports some mild sinus congestion but denies any fevers, chills, cough, congestion, nausea, vomiting or diarrhea. She reports she has noticed decreased urination but did not feel like she is retaining urine. ROS: See above HPI for pertinent positives & negatives. A total of 10 systems reviewed and were otherwise negative. PAST MEDICAL HISTORY:See Below PAST SURGICAL HISTORY:See Below FAMILY HISTORY:See Below SOCIAL HISTORY:See Below HOME MEDICATIONS:See Below ALLERGIES:See Below VITALS:See Below PHYSICAL EXAMINATION: GENERAL: Awake, alert, fatigued-appearing, in no distress HENT: Normocephalic, atraumatic. Oropharynx with dry mucous membranes and otherwise unremarkable. EYES: Normal conjunctiva. Sclera non-icteric. NECK: Supple. No nuchal rigidity. FROM. No JVD. RESPIRATORY: Clear to auscultation. CARDIAC: Bradycardic rate, normal rhythm. Extremities warm and well perfused. Pulses equal. ABDOMEN: Soft, non-distended. No tenderness to palpation. No rebound or guarding. No masses. RECTAL: Deferred. MUSCULOSKELETAL: Chest examination reveals no tenderness. The back is symme trical on inspection without obvious abnormality. There is no CVA tenderness to palpation. No joint edema. LOWER EXTREMITIES: Calves are equal size bilaterally and non-tender. No edema. No discoloration. NEURO: Normal sensorium. No sensory or motor deficits noted. SKIN: No rash or jaundice noted. ED COURSE: Critical Care: I have personally spent greater than 95 minutes of critical care time in the direct management of this patient. This includes bedside care, interpretation of diagnostic studies, and testing, discussion with consultants, patient, and family members, and other required patient management activities. This 95 minutes is in excess of all separately billable procedures. Siddharth Lei MD Past Med/Surg History Medical History (Updated 12/20/20 @ 04:21 by Siddharth Lei MD) GERD (gastroesophageal reflux disease) H/O Clostridium difficile infection HTN (hypertension) Hx of squamous cell carcinoma Macular degeneration Osteoarthritis Restless legs syndrome (RLS) Surgical History H/O cervical spine surgery History of cataract surgery History of hysterectomy Status post Mohs surgery Status post total knee replacement, left Status post total knee replacement, right Family History Father Alcohol abuse Macular degeneration COPD (chronic obstructive pulmonary disease) Mother Rheumatic fever Son , 21 Suicide Social History Smoking Status: Never smoker Second Hand Exposure: No; Do You Dip or Chew Tobacco: No; Tobacco Cessation Education Requested by Patient: No Hx Alcohol Use: Yes Alcohol type: wine Alcohol Intake Frequency: 4 or More x per/Week Alcohol Intake Frequency Comment: 6-8 ounces of wine daily Hx Substance Use: No Preferred Language: Maltese Communication Ability: Effective Visual Impairment: No Limitations Hearing Ability: Normal Embedded 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 Design Engineer Required: No Beliefs That Will Affect Care: None Current Living Situation: Alone Current Living Situation Comment: Has student services rep living with her that helps her Other Information That Helps Us Care for You: No Feels Safe at Home: Yes Safety Concerns: Feels Safe At This Time Assistive Devices: Cane and Glasses Allergies Allergies Allergy/AdvReac Type Severity Reaction Status Date / Time adhesive Allergy Unknown RED, Verified 12/19/20 17:16 IRRITATION WITH TAPE morphine AdvReac Intermediate VOMITING - Verified 12/19/20 17:16 PT REQUESTS SHE NOT RECEIVE AGAIN Home Meds Home Medications Medication Instructions Recorded Confirmed amlodipine 10 mg tablet 10 mg PO DAILY 05/15/19 12/19/20 furosemide 20 mg tablet 20 mg PO DAILY PRN 05/15/19 12/19/20 ibuprofen 200 mg capsule 200 mg PO Q6H PRN 05/15/19 12/19/20 magnesium oxide 400 mg PO BID cap 05/15/19 12/19/20 potassium chloride 10 mEq 10 meq PO BID 05/15/19 12/19/20 capsule,extended release prednisone 5 mg tablet 5 mg PO DAILY 05/15/19 12/19/20 ropinirole 0.5 mg tablet 0.5 mg PO BID PRN tab 05/15/19 12/19/20 ropinirole 1 mg tablet 1 mg PO HS tab 05/15/19 12/19/20 tramadol 50 mg tablet 50 mg PO Q6 PRN tab 05/15/19 12/19/20 vitamins A,C,I-byqr-ngazlc 14,320 1 cap PO BID 05/15/19 12/19/20 unit-226 mg-200 unit capsule lactobacillus combination no.4 0 mmu cells PO DAILY 12/19/20 12/19/20 [Probiotic] lisinopril-hydrochlorothiazide 1 tab PO DAILY 12/19/20 12/19/20 metoprolol succinate 25 mg PO DAILY 12/19/20 12/19/20 multivitamin 1 tab PO DAILY 12/19/20 12/19/20 Previous Rx's Medication Instructions Recorded gabapentin 100 mg capsule 100 mg PO TID #90 cap 03/11/20 Results & Data (ED) Vital Signs Vital Signs - 24 hr 12/19/20 16:17 12/19/20 16:48 12/19/20 17:00 Temperature 36.1 C L Temperature Source Temporal Artery Scan Pulse Rate 34 L Pulse Rate [Finger] 40 L 36 L Respiratory Rate 20 16 18 Blood Pressure 99/46 L Blood Pressure [Left Arm] 104/49 L 102/49 L Blood Pressure Mean 63 Blood Pressure Mean [Left Arm] 67 66 Pulse Oximetry 96 97 98 Oxygen Delivery Method Room Air Room Air Sepsis Recent Fever Within 48 Hours No Sepsis New/Unexplained Change in Mental Status N/A Sepsis Action Taken by Nursing No Action Required 12/19/20 17:15 12/19/20 17:40 12/19/20 17:52 Temperature Temperature Source Pulse Rate Pulse Rate [Finger] 39 L 57 L 51 L Respiratory Rate 18 18 16 Blood Pressure Blood Pressure [Left Arm] 121/44 L 143/54 H 142/69 H Blood Pressure Mean Blood Pressure Mean [Left Arm] 69 83 93 Pulse Oximetry 96 98 98 Oxygen Delivery Method Room Air Room Air Room Air Sepsis Recent Fever Within 48 Hours Sepsis New/Unexplained Change in Mental Status Sepsis Action Taken by Nursing 12/19/20 18:00 12/19/20 18:24 12/19/20 18:38 Temperature Temperature Source Pulse Rate Pulse Rate [Finger] 51 L 52 L 55 L Respiratory Rate 16 18 18 Blood Pressure Blood Pressure [Left Arm] 155/56 H 161/55 H 138/55 L Blood Pressure Mean Blood Pressure Mean [Left Arm] 89 90 82 Pulse Oximetry 98 97 99 Oxygen Delivery Method Room Air Room Air Room Air Sepsis Recent Fever Within 48 Hours Sepsis New/Unexplained Change in Mental Status Sepsis Action Taken by Nursing Laboratory Data Attestation: I reviewed the patient's lab results. Result diagrams: 12/19/20 16:40 12/19/20 22:02 Lab Results 12/19/20 12/19/20 12/19/20 Range/Units 16:40 16:40 16:40 WBC 7.56 (4.8-10.8) K/uL RBC 3.63 L (4.2-5.4) M/uL Hgb 12.0 (12.0-16.0) g/dL POC Hgb (12.0-16.0) g/dl Hct 34.9 L (37-47) % POC Hct (37-47) % MCV 96.1 (80-100) fL MCH 33.1 (25-34) pg MCHC 34.4 (32-36) g/dL RDW Std Deviation 49.0 H (36.4-46.3) fL RDW Coeff of Murtaza 13.9 (11.5-14.5) % Plt Count 256 (130-400) K/uL MPV 10.4 (7.4-10.4) fL Immature Gran % (Auto) 0.4 % Neut % (Auto) 61.4 % Lymph % (Auto) 28.3 % Sauk % (Auto) 8.6 % Eos % (Auto) 1.2 % Baso % (Auto) 0.1 % Neut # (Auto) 4.64 (1.4-6.5) K/uL Lymph # (Auto) 2.14 (1.2-3.4) K/uL Sauk # (Auto) 0.65 H (0.11-0.59) K/uL Eos # (Auto) 0.09 (0-0.5) K/uL Baso # (Auto) 0.01 (0-0.2) K/uL Immature Gran # (Auto) 0.03 H (0.00-0.02) K/uL PT 10.1 (9.0-12.0) Seconds INR 1.0 (0.9-1.1) POC Sodium (135-144) mmol/L Sodium 134 L (136-145) mmol/L POC Potassium (3.3-5.0) mmol/L Potassium 5.9 H (3.5-5.1) mmol/L POC Chloride (101-112) mmol/L Chloride 103 (98-107) mmol/L Carbon Dioxide 24 (21-32) mmol/L POC Total CO2 (24-31) mmol/L Anion Gap 7.0 (3-11) POC Anion Gap (16-25) mmol/L POC BUN (7-18) mg/dl BUN 67 H (7-18) mg/dl Creatinine 2.79 H (0.6-1.2) mg/dl POC Creatinine (0.6-1.3) mg/dl Est Cr Clr Drug Dosing 15.5 ml/min Est GFR ( Amer) 17.5 Est GFR (Non-Af Amer) 15.1 BUN/Creatinine Ratio 24.0 H (10-20) Glucose 155 H (70-99) mg/dl POC Glucose (other) (70-99) mg/dl Calcium 9.6 (8.5-10.1) mg/dl POC Ioniz Calcium Klaus (1.12-1.32) mmol/l Phosphorus 5.1 H (2.5-4.9) mg/dl Magnesium 2.6 H (1.8-2.4) mg/dl Total Bilirubin 0.4 (0.2-1) mg/dl Direct Bilirubin 0.2 (0-0.2) mg/dl AST 30 (15-37) U/L ALT 42 (12-78) U/L Alkaline Phosphatase 106 (45-117) U/L Total Creatine Kinase 69 (26-192) U/L Troponin I < 0.015 (0-0.045) ng/ml Total Protein 7.1 (6.4-8.2) gm/dl Albumin 3.9 (3.4-5.0) gm/dl Globulin 3.2 (2.5-4.0) gm/dl Albumin/Globulin Ratio 1.2 (0.9-2) Lipase 260 (73-393) U/L TSH 1.410 (0.300-4.500) uIu/ml Urine Color Urine Appearance (Clear) Urine pH (4.5-7.5) Ur Specific Labelle (1.000-1.030) Urine Protein (Negative) Urine Glucose (UA) (Negative) Urine Ketones (Negative) Urine Blood (Negative) Urine Nitrite (Negative) Urine Bilirubin (Negative) Urine Urobilinogen (Negative) Ur Leukocyte Esterase (Negative) Urine WBC (Auto) (0-5) /hpf Urine RBC (Auto) (0-4) /hpf U Hyaline Cast (Auto) (0-5) /lpf U Epithel Cells (Auto) (0-5) /lpf Urine Bacteria (Auto) (Negative) Urine Crystals (None Prsent) Lyme Disease IgG Ab (Negative) Lyme Disease IgM Ab (Negative) COVID-19 Eval Order SARS-CoV-2 (PCR) (Negative) Influenza Type A (PCR) (Neg) Influenza Type B (PCR) (Neg) RSV (RT-PCR) (Neg) 12/19/20 12/19/20 12/19/20 Range/Units 16:40 16:43 16:44 WBC (4.8-10.8) K/uL RBC (4.2-5.4) M/uL Hgb (12.0-16.0) g/dL POC Hgb 12.2 (12.0-16.0) g/dl Hct (37-47) % POC Hct 36 L (37-47) % MCV (80-100) fL MCH (25-34) pg MCHC (32-36) g/dL RDW Std Deviation (36.4-46.3) fL RDW Coeff of Murtaza (11.5-14.5) % Plt Count (130-400) K/uL MPV (7.4-10.4) fL Immature Gran % (Auto) % Neut % (Auto) % Lymph % (Auto) % Sauk % (Auto) % Eos % (Auto) % Baso % (Auto) % Neut # (Auto) (1.4-6.5) K/uL Lymph # (Auto) (1.2-3.4) K/uL Sauk # (Auto) (0.11-0.59) K/uL Eos # (Auto) (0-0.5) K/uL Baso # (Auto) (0-0.2) K/uL Immature Gran # (Auto) (0.00-0.02) K/uL PT (9.0-12.0) Seconds INR (0.9-1.1) POC Sodium 132 L (135-144) mmol/L Sodium (136-145) mmol/L POC Potassium 5.9 H (3.3-5.0) mmol/L Potassium (3.5-5.1) mmol/L POC Chloride 101 (101-112) mmol/L Chloride (98-107) mmol/L Carbon Dioxide (21-32) mmol/L POC Total CO2 24 (24-31) mmol/L Anion Gap (3-11) POC Anion Gap 14.0 L (16-25) mmol/L POC BUN 62 H (7-18) mg/dl BUN (7-18) mg/dl Creatinine (0.6-1.2) mg/dl POC Creatinine 3.2 H (0.6-1.3) mg/dl Est Cr Clr Drug Dosing ml/min Est GFR ( Amer) Est GFR (Non-Af Amer) BUN/Creatinine Ratio (10-20) Glucose (70-99) mg/dl POC Glucose (other) 153 H (70-99) mg/dl Calcium (8.5-10.1) mg/dl POC Ioniz Calcium Klaus 1.30 (1.12-1.32) mmol/l Phosphorus (2.5-4.9) mg/dl Magnesium (1.8-2.4) mg/dl Total Bilirubin (0.2-1) mg/dl Direct Bilirubin (0-0.2) mg/dl AST (15-37) U/L ALT (12-78) U/L Alkaline Phosphatase (45-117) U/L Total Creatine Kinase (26-192) U/L Troponin I (0-0.045) ng/ml Total Protein (6.4-8.2) gm/dl Albumin (3.4-5.0) gm/dl Globulin (2.5-4.0) gm/dl Albumin/Globulin Ratio (0.9-2) Lipase (73-393) U/L TSH (0.300-4.500) uIu/ml Urine Color Dark Yellow Urine Appearance Cloudy A (Clear) Urine pH 5.0 (4.5-7.5) Ur Specific Labelle 1.022 (1.000-1.030) Urine Protein Trace H (Negative) Urine Glucose (UA) Negative (Negative) Urine Ketones Trace H (Negative) Urine Blood Negative (Negative) Urine Nitrite Negative (Negative) Urine Bilirubin Negative (Negative) Urine Urobilinogen Negative (Negative) Ur Leukocyte Esterase Negative (Negative) Urine WBC (Auto) 1-5 (0-5) /hpf Urine RBC (Auto) 5-10 H (0-4) /hpf U Hyaline Cast (Auto) 10-30 H (0-5) /lpf U Epithel Cells (Auto) 20-30 H (0-5) /lpf Urine Bacteria (Auto) Negative (Negative) Urine Crystals Calcium Oxalate A (None Prsent) Lyme Disease IgG Ab Negative (Negative) Lyme Disease IgM Ab Positive A (Negative) COVID-19 Eval Order SARS-CoV-2 (PCR) (Negative) Influenza Type A (PCR) (Neg) Influenza Type B (PCR) (Neg) RSV (RT-PCR) (Neg) 12/19/20 12/19/20 Range/Units 16:47 16:47 WBC (4.8-10.8) K/uL RBC (4.2-5.4) M/uL Hgb (12.0-16.0) g/dL POC Hgb (12.0-16.0) g/dl Hct (37-47) % POC Hct (37-47) % MCV (80-100) fL MCH (25-34) pg MCHC (32-36) g/dL RDW Std Deviation (36.4-46.3) fL RDW Coeff of Murtaza (11.5-14.5) % Plt Count (130-400) K/uL MPV (7.4-10.4) fL Immature Gran % (Auto) % Neut % (Auto) % Lymph % (Auto) % Sauk % (Auto) % Eos % (Auto) % Baso % (Auto) % Neut # (Auto) (1.4-6.5) K/uL Lymph # (Auto) (1.2-3.4) K/uL Sauk # (Auto) (0.11-0.59) K/uL Eos # (Auto) (0-0.5) K/uL Baso # (Auto) (0-0.2) K/uL Immature Gran # (Auto) (0.00-0.02) K/uL PT (9.0-12.0) Seconds INR (0.9-1.1) POC Sodium (135-144) mmol/L Sodium (136-145) mmol/L POC Potassium (3.3-5.0) mmol/L Potassium (3.5-5.1) mmol/L POC Chloride (101-112) mmol/L Chloride (98-107) mmol/L Carbon Dioxide (21-32) mmol/L POC Total CO2 (24-31) mmol/L Anion Gap (3-11) POC Anion Gap (16-25) mmol/L POC BUN (7-18) mg/dl BUN (7-18) mg/dl Creatinine (0.6-1.2) mg/dl POC Creatinine (0.6-1.3) mg/dl Est Cr Clr Drug Dosing ml/min Est GFR ( Amer) Est GFR (Non-Af Amer) BUN/Creatinine Ratio (10-20) Glucose (70-99) mg/dl POC Glucose (other) (70-99) mg/dl Calcium (8.5-10.1) mg/dl POC Ioniz Calcium Klaus (1.12-1.32) mmol/l Phosphorus (2.5-4.9) mg/dl Magnesium (1.8-2.4) mg/dl Total Bilirubin (0.2-1) mg/dl Direct Bilirubin (0-0.2) mg/dl AST (15-37) U/L ALT (12-78) U/L Alkaline Phosphatase (45-117) U/L Total Creatine Kinase (26-192) U/L Troponin I (0-0.045) ng/ml Total Protein (6.4-8.2) gm/dl Albumin (3.4-5.0) gm/dl Globulin (2.5-4.0) gm/dl Albumin/Globulin Ratio (0.9-2) Lipase (73-393) U/L TSH (0.300-4.500) uIu/ml Urine Color Urine Appearance (Clear) Urine pH (4.5-7.5) Ur Specific Labelle (1.000-1.030) Urine Protein (Negative) Urine Glucose (UA) (Negative) Urine Ketones (Negative) Urine Blood (Negative) Urine Nitrite (Negative) Urine Bilirubin (Negative) Urine Urobilinogen (Negative) Ur Leukocyte Esterase (Negative) Urine WBC (Auto) (0-5) /hpf Urine RBC (Auto) (0-4) /hpf U Hyaline Cast (Auto) (0-5) /lpf U Epithel Cells (Auto) (0-5) /lpf Urine Bacteria (Auto) (Negative) Urine Crystals (None Prsent) Lyme Disease IgG Ab (Negative) Lyme Disease IgM Ab (Negative) COVID-19 Eval Order CovFluRsv at [facility] SARS-CoV-2 (PCR) NEGATIVE (Negative) Influenza Type A (PCR) Negative (Neg) Influenza Type B (PCR) Negative (Neg) RSV (RT-PCR) Negative (Neg) Administered Medications Heparin Sodium (Porcine) (Heparin Sod 5,000 Unit/0.5 Ml Vial) 5,000 units SQ Q8 CAS Stop: 01/18/21 21:59 Last Admin: 12/19/20 22:45 Dose: 5,000 units Documented by: [id number] Sodium Chloride (Nss 1000ml) 1,000 mls @ 80 mls/hr IV .[id number] CAS Stop: 01/18/21 20:59 Last Admin: 12/19/20 22:46 Dose: 80 mls/hr Documented by: [id number] Ropinirole HCl (Ropinirole Hcl 1 Mg Tablet) 1 mg PO HS CAS Stop: 01/18/21 20:59 Last Admin: 12/19/20 22:45 Dose: 1 mg Documented by: [id number] Discontinued Medications Dextrose (Dextrose 50% 50 Ml Syringe) 100 ml IV NOW STA Stop: 12/19/20 16:54 Last Admin: 12/19/20 17:12 Dose: 100 ml Documented by: [id number] Admin: 12/19/20 17:11 Dose: 50 ml Documented by: [id number] Sodium Chloride (Nss) 500 mls @ 999 mls/hr IV .Q31M STA Stop: 12/19/20 17:12 Last Infusion: 12/19/20 17:40 Dose: 0 mls/hr Documented by: [id number] Admin: 12/19/20 16:53 Dose: 999 mls/hr Documented by: [id number] Calcium Gluconate () 1,000 mg in 60 mls @ 240 mls/hr IV NOW STA Stop: 12/19/20 17:05 Last Infusion: 12/19/20 17:24 Dose: 0 mls/hr Documented by: [id number] Admin: 12/19/20 17:05 Dose: 240 mls/hr Documented by: [id number] Calcium Gluconate () 1,000 mg in 60 mls @ 240 mls/hr IV NOW STA Stop: 12/19/20 17:07 Last Infusion: 12/19/20 17:30 Dose: 0 mls/hr Documented by: [id number] Admin: 12/19/20 17:17 Dose: 240 mls/hr Documented by: [id number] Insulin Human Regular 10 units (/ Syringe) 9.9 mls @ 3 mls/sec IV ONE STA Stop: 12/19/20 16:54 Last Admin: 12/19/20 17:11 Dose: 3 mls/sec Documented by: [id number] Cosigned by: [id number] Sodium Bicarbonate 150 meq/ (Dextrose) 1,150 mls @ 290 mls/hr IV .Q3H58M STA Stop: 12/19/20 20:52 Last Infusion: 12/20/20 00:19 Dose: 0 mls/hr Documented by: [id number] Admin: 12/19/20 17:51 Dose: 290 mls/hr Documented by: [id number] Sodium Chloride (Nss 1000ml) 1,000 mls @ 125 mls/hr IV .Q8H [facility] Stop: 01/18/21 17:59 Last Infusion: 12/20/20 02:32 Dose: 0 mls/hr Documented by: [id number] Admin: 12/19/20 18:53 Dose: 125 mls/hr Documented by: [id number] Ceftriaxone Sodium (Rocephin) 2,000 mg in 70 mls @ 140 mls/hr IV NOW STA Stop: 12/19/20 19:07 Last Infusion: 12/19/20 19:35 Dose: 0 mls/hr Documented by: [id number] Admin: 12/19/20 18:53 Dose: 140 mls/hr Documented by: [id number] Insulin Human Regular (Novolin-R Insulin Per Unit Charge) Confirm Administered Dose 1 units .ROUTE .STK-MED ONE Stop: 12/19/20 17:11 Last Admin: 12/19/20 17:20 Dose: Not Given Documented by: [id number] Patiromer (Patiromer Calcium Sorbitex 8.4 Gm Pack) 8.4 gm PO NOW STA Stop: 12/19/20 17:58 Last Admin: 12/19/20 18:35 Dose: 8.4 gm Documented by: [id number] Imaging Data Radiologist's Impression: Chest X-Ray 12/19/20 16:42 XR chest 1V portable CLINICAL HISTORY: Atypical chest pain COMPARISON STUDY: No previous studies for comparison. FINDINGS: The heart is borderline enlarged. There is no failure. No focal pulmonary consolidation. There are no pleural effusions. Calcific tendinopathy is shoulders is suspected. There is a right upper quadrant calcification unchanged from the prior study.[ IMPRESSION: No active disease in the chest. ACT 112: Negative or not required by law. Electronically signed by: Paulino Moreira M.D. 12/19/2020 5:03 PM Abdomen/Pelvis CT 12/19/20 16:58 CT SCAN OF THE ABDOMEN AND PELVIS WITHOUT CONTRAST CLINICAL HISTORY: acute renal failure COMPARISON STUDY: No previous studies for comparison. TECHNIQUE: CT scan of the abdomen and pelvis was performed from the lung bases to the proximal femurs. Images are reviewed in the axial, sagittal, and coronal planes. IV contrast was not administered for this examination. A dose lowering technique was utilized adhering to the principles of ALARA. CT DOSE: 627.45 mGy.cm FINDINGS: Lower chest: There are calcified mediastinal and hilar lymph nodes, likely postinflammatory. There is a right lower lobe calcified granuloma. There is subpleural reticulation. There is mild dependent atelectasis. There is a 2.5 mm right lower lobe pulmonary nodule. Liver: There are several hepatic calcifications likely postinflammatory. No suspicious hepatic masses are visualized in this noncontrast study Gallbladder: Unremarkable. Spleen: There are scattered calcified splenic granulomas Pancreas: Unremarkable. Adrenal glands: Unremarkable. Kidneys: No renal, ureteral, or bladder calculi are visualized. There is no hydronephrosis. Bowel: There are no transition zones to indicate bowel obstruction. There is no evidence of acute diverticulitis. There is no evidence of acute appendicitis. Peritoneum: There is no intraperitoneal free air or abdominal ascites. Vasculature: The abdominal aorta is normal in course and caliber. Adenopathy: None. Pelvic viscera: The uterus is surgically absent. There is an indwelling Wasserman catheter which likely explain the air within the bladder. There is a 15 mm left ovarian cyst. Skeletal structures: Degenerative changes are present within the lumbar spine with multilevel spinal stenosis. IMPRESSION: 1. No evidence of bowel obstruction. No evidence of free air 2. No evidence of acute appendicitis. No evidence of acute diverticulitis 3. No renal, ureteral, or bladder calculi identified. No evidence of hydronephrosis. ACT 112: Negative or not required by law. Electronically signed by: Paulino Moreira M.D. 12/19/2020 5:50 PM Discharge Plan Visit Data Chief Complaint: Unable to Void Stated Complaint: CANNOT VOID ED Provider: Siddharth Lei Discharge Problem: Symptomatic bradycardia, Positive Lyme disease serology, Acute hyperkalemia, Acute renal failure Patient Disposition: Admitted As Inpatient Discharge Instructions Interventions: ED Discharge Assessment Last Done: 12/19/20 20:13 Discharge Problem: Acute renal failure Qualifiers: Acute renal failure type: unspecified Qualified Code(s): N17.9 - Acute kidney failure, unspecified
[2020-12-19] MEDS ORDERED: NovoLIN-R INSULIN PER UNIT CHARGE ONE (17:10)
[2020-12-19] MEDS: DEXTROSE 50% 50 ML SYRINGE IV STA ×2 (17:11→17:12)
[2020-12-19 17:16] LABS: Albumin Globulin Ratio 1.2 (0.9-2); Alkaline Phosphatase 106 U/L (45-117); Bilirubin,Total 0.4 mg/dl (0.2-1); Creatine Kinase 69 U/L (26-192); Globulin 3.2 gm/dl (2.5-4.0); Phosphorus 5.1 mg/dl (2.5-4.9); Total Protein 7.1 gm/dl (6.4-8.2); Troponin I < 0.015 ng/ml (0-0.045)
[2020-12-19 17:37] LABS: Influenza A virus by PCR Negative (Neg); Influenza B virus by PCR Negative (Neg); RSV by PCR Negative (Neg); SARS CoV2 RNA(COVID-19) InHosp NEGATIVE (Negative)
--- NOTE | 2020-12-19 17:51 | CT Scan Report ---
CT SCAN OF THE ABDOMEN AND PELVIS WITHOUT CONTRAST CLINICAL HISTORY: acute renal failure COMPARISON STUDY: No previous studies for comparison. TECHNIQUE: CT scan of the abdomen and pelvis was performed from the lung bases to the proximal femurs . Images are reviewed in the axial, sagittal, and coronal planes. IV contrast was not administered fo r this examination. A dose lowering technique was utilized adhering to the principles of ALARA. CT DOSE: 627.45 mGy.cm FINDINGS: Lower chest: There are calcified mediastinal and hilar lymph nodes, likely postinflammatory. There is a right lower lobe calcified granuloma. There is subpleural reticulation. There is mild dependent at electasis. There is a 2.5 mm right lower lobe pulmonary nodule. Liver: There are several hepatic calcifications likely postinflammatory. No suspicious hepatic masses are visualized in this noncontrast study Gallbladder: Unremarkable. Spleen: There are scattered calcified splenic granulomas Pancreas: Unremarkable. Adrenal glands: Unremarkable. Kidneys: No renal, ureteral, or bladder calculi are visualized. There is no hydronephrosis. Bowel: There are no transition zones to indicate bowel obstruction. There is no evidence of acute div erticulitis. There is no evidence of acute appendicitis. Peritoneum: There is no intraperitoneal free air or abdominal ascites. Vasculature: The abdominal aorta is normal in course and caliber. Adenopathy: None. Pelvic viscera: The uterus is surgically absent. There is an indwelling Wasserman catheter which likely e xplain the air within the bladder. There is a 15 mm left ovarian cyst. Skeletal structures: Degenerative changes are present within the lumbar spine with multilevel spinal stenosis. IMPRESSION: 1. No evidence of bowel obstruction. No evidence of free air 2. No evidence of acute appendicitis. No evidence of acute diverticulitis 3. No renal, ureteral, or bladder calculi identified. No evidence of hydronephrosis. ACT 112: Negative or not required by law. Electronically signed by: Paulino Moreira M.D. 12/19/2020 5:50 PM
[2020-12-19 17:52] LABS: Lyme Ab IgG w/WB Rflx Negative (Negative)
[2020-12-19] MEDS ORDERED: PATIROMER CALCIUM SORBITEX 8.4 GM PACK PO STA (17:57)
[2020-12-19] MEDS ORDERED: SODIUM CHLORIDE 0.9% 1000ML 1,000 ML IV SCH (18:00)
[2020-12-19 18:19] LABS: Lyme Ab IgM w/WB Rflx Positive (Negative)
[2020-12-19] MEDS ORDERED: cefTRIAXone SODIUM 2,000 MG/70 ML BAG IV STA (18:38)
--- NOTE | 2020-12-19 19:03 | History & Physical Report ---
Date of Service December 19, 2020 Assessment & Plan (1) HERMAN (acute kidney injury): (2) Bradycardia: (3) Positive Lyme disease serology: (4) Hyperkalemia: (5) Hypermagnesemia: This is a 85-year-old female who has significant past medical history of hypertension, macular degeneration, osteopenia, osteoarthritis who presents to ED secondary to decreased urination x2 to 3 days. Patient presents with renal failure, BUN 67, creatinine 2.79, last creatinine 0.9 on 11/11/2020. Evidence of hyperkalemia and hypermagnesemia likely in setting of HERMAN along with taking daily supplementation. She received treatment for hyperkalemia with calcium gluconate, regular insulin, D50 and patriomer. She has also received gentle IV hydration while in ER. So far she has had 950 mL of urine output. No known tick bite, but initial Lyme serology positive for IgM antibody. 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 Echocardiogram External pacer pads at bedside 2 g IV Rocephin, await Western blot Hold nephrotoxic agents including lisinopril, HCTZ, potassium and magnesium supplements, NSAIDs Hold metoprolol in setting of bradycardia Obtain renal ultrasound Consult nephrology secondary to HERMAN (6) HTN (hypertension): On metoprolol, lisinopril/HCTZ and amlodipine as outpatient Hold all in setting of initial hypotension and HERMAN (7) Osteoarthritis: Continue daily prednisone (8) Macular degeneration: States recently lost drivers license secondary to visual loss (9) Restless legs syndrome (RLS): Continue Requip (10) DVT prophylaxis: SQ Heparin Dispo:PCU PCP: Tyrone FULL CODE Pt was seen and examined in collaboration with Dr. Henao, please see addendum History of Present Illness Chief Complaint: Decreased urination x2 to 3 days. Primary Care Provider: Kayce Hansen, DO This is a 85-year-old female who has significant past medical history of hypertension, macular degeneration, osteopenia, osteoarthritis who presents to ED secondary to decreased urination x2 to 3 days. Friend is at bedside. She was supposed to be on her way to [place]. Over the last few days she has noted to be more fatigued, weak and sleeping more. She also complains of decreased appetite and overall decreased intake. She further noticed that with decreased intake she had significantly decrease in urinary output. She not urinated in 24 hours. She had difficulty standing requiring her to lean on objects and felt off balance. "Did not feel like herself." She denies any recent fever, chills, sweats, nausea, lightheadedness, dizziness, syncope, vomiting, diarrhea. She further denies any chest pain, palpitations, cough, melena or hematochezia. She occasionally gets lower abdominal pain when she eats. She also complains of occasional difficulty swallowing With certain foods and occasional liquids.she has never had this evaluated in past with endoscopy and states she just uses extra water to, "wash it down." She denies any rash, known tick bite or arthralgias. She does have osteoarthritis as well as chronic neck and low back pain on chronic prednisone therapy, but feels this is at baseline. She notes her dog did have a tick 2 weeks ago. She is completely vaccinated for COVID-19. She denies any prior history of Lyme's disease. In ED patient systolic blood pressure was initially in the 90s and heart rate in 30s per initial EKG. Initial lab work-up revealed new onset HERMAN with BUN 67, creatinine 2.79, hyperkalemia 5.9, hyponatremia 134, elevated magnesium 2.6, elevated phosphorus 5.1, glucose 155. Her TSH and LFTs were unremarkable. Urinalysis consistent with ketones and epithelial cells but no acute infection. Initial Lyme screen IgM positive. CT abdomen pelvis revealed no evidence of bowel obstruction or renal, ureteral or bladder calculi. No evidence of hydronephrosis. In ED she received 2 g IV calcium gluconate, 10 units regular insulin, D50, IV fluid, bicarb and 2 g IV Rocephin. Repeat EKG revealed a sinus bradycardia with heart rate in the 50s and no evidence of heart block. Allergies Allergy/AdvReac Type Severity Reaction Status Date / Time adhesive Allergy Unknown RED, Verified 12/19/20 17:16 IRRITATION WITH TAPE morphine AdvReac Intermediate VOMITING - Verified 12/19/20 17:16 PT REQUESTS SHE NOT RECEIVE AGAIN Home Medications Medication Instructions Recorded Confirmed Type amlodipine 10 mg tablet 10 mg PO DAILY 05/15/19 12/19/20 History furosemide 20 mg tablet 20 mg PO DAILY PRN 05/15/19 12/19/20 History ibuprofen 200 mg capsule 200 mg PO Q6H PRN 05/15/19 12/19/20 History magnesium oxide 400 mg PO BID cap 05/15/19 12/19/20 History potassium chloride 10 mEq 10 meq PO BID 05/15/19 12/19/20 History capsule,extended release prednisone 5 mg tablet 5 mg PO DAILY 05/15/19 12/19/20 History ropinirole 0.5 mg tablet 0.5 mg PO BID PRN tab 05/15/19 12/19/20 History ropinirole 1 mg tablet 1 mg PO HS tab 05/15/19 12/19/20 History tramadol 50 mg tablet 50 mg PO Q6 PRN tab 05/15/19 12/19/20 History vitamins A,C,K-sxox-tvrkkg 14,320 1 cap PO BID 05/15/19 12/19/20 History unit-226 mg-200 unit capsule gabapentin 100 mg capsule 100 mg PO TID #90 cap 03/11/20 12/19/20 Rx lactobacillus combination no.4 0 mmu cells PO DAILY 12/19/20 12/19/20 History [Probiotic] lisinopril-hydrochlorothiazide 1 tab PO DAILY 12/19/20 12/19/20 History metoprolol succinate 25 mg PO DAILY 12/19/20 12/19/20 History multivitamin 1 tab PO DAILY 12/19/20 12/19/20 History Past Med/Surg History Medical History (Updated 12/19/20 @ 19:45 by Mirta Soliz PA-C) GERD (gastroesophageal reflux disease) H/O Clostridium difficile infection HTN (hypertension) Hx of squamous cell carcinoma Macular degeneration Osteoarthritis Restless legs syndrome (RLS) Surgical History H/O cervical spine surgery History of cataract surgery History of hysterectomy Status post Mohs surgery Status post total knee replacement, left Status post total knee replacement, right Family History Father Alcohol abuse Macular degeneration COPD (chronic obstructive pulmonary disease) Mother Rheumatic fever Son , 21 Suicide Social History (Updated 12/19/20 @ 19:37 by Mirta Soliz PA-C) Smoking Status: Never smoker Hx Alcohol Use: Yes Alcohol type: wine Alcohol Intake Frequency: 4 or More x pe r/Week Alcohol Intake Frequency Comment: 6-8 ounces of wine daily Preferred Language: Slovak Communication Ability: Effective Visual Impairment: No Limitations Hearing Ability: Normal Current Living Situation: Alone Current Living Situation Comment: Has word processing operator living with her that helps her Feels Safe at Home: Yes Review of Systems Review of Systems: All systems reviewed & are unremarkable except as noted in HPI & below Physical Exam Physical Exam: Constitutional: WD/WN, elderly, female, vitals as above, NAD, sitting up in bed, pleasant, conversing easily Head: Normocephalic, Atraumatic Eyes: PERRL, conjunctivae normal, anicteric sclerae ENMT: external ear and nose normal, oropharynx normal Neck: trachea midline, no thyromegaly normal visual inspection Respiratory: normal respiratory effort, lungs clear to auscultation, no wheeze, rales, rhonchi. Normal insp/exp effort, no accessory muscle use Cardiovascular: Bradycardic rate, regular rhythm, no murmur, bilateral lower extremity venous stasis changes, small skin tear to anterior pretibial surface on right lower extremity, trace to +1 lower extremity edema Vessels: no JVD or carotid bruit Chest: normal inspection of chest , external pacer pads on anterior chest wall Abdomen: normal bowel sounds, soft, nontender, no hepatosplenomegaly Musculoskeletal: no cyanosis or clubbing, extremities motor strength 5/5 Skin: no rashes, warm and dry normal turgor Neurologic: PERRL, EOMI, accommodation nl, no face palsy, no dysarthria CN's II-XI intact bilaterally and moves all extremities Psychiatric: A+Ox3, euthymic affect Lymphatic: no cervical or axillary lymphadenopathy : Wasserman catheter in place with 800 mL of yellow urine in Wasserman bag Results & Data Results & Data ([facility]) Vital Signs (Past 12 Hours) Vital Signs Temp Pulse Pulse Resp BP BP Pulse Ox 12/19/20 18:38 55 L 18 138/55 L 99 12/19/20 18:24 52 L 18 161/55 H 97 12/19/20 18:00 51 L 16 155/56 H 98 12/19/20 17:52 51 L 16 142/69 H 98 12/19/20 17:40 57 L 18 143/54 H 98 12/19/20 17:15 39 L 18 121/44 L 96 12/19/20 17:00 36 L 18 102/49 L 98 12/19/20 16:48 40 L 16 104/49 L 97 12/19/20 16:17 36.1 C L 34 L 20 99/46 L 96 Diagnostic Findings Chest X-Ray 12/19/20 16:42 XR chest 1V portable CLINICAL HISTORY: Atypical chest pain COMPARISON STUDY: No previous studies for comparison. FINDINGS: The heart is borderline enlarged. There is no failure. No focal pulmonary consolidation. There are no pleural effusions. Calcific tendinopathy is shoulders is suspected. There is a right upper quadrant calcification unchanged from the prior study.[ IMPRESSION: No active disease in the chest. ACT 112: Negative or not required by law. Electronically signed by: Paulino Moreira M.D. 12/19/2020 5:03 PM Abdomen/Pelvis CT 12/19/20 16:58 CT SCAN OF THE ABDOMEN AND PELVIS WITHOUT CONTRAST CLINICAL HISTORY: acute renal failure COMPARISON STUDY: No previous studies for comparison. TECHNIQUE: CT scan of the abdomen and pelvis was performed from the lung bases to the proximal femurs. Images are reviewed in the axial, sagittal, and coronal planes. IV contrast was not administered for this examination. A dose lowering technique was utilized adhering to the principles of ALARA. CT DOSE: 627.45 mGy.cm FINDINGS: Lower chest: There are calcified mediastinal and hilar lymph nodes, likely postinflammatory. There is a right lower lobe calcified granuloma. There is subpleural reticulation. There is mild dependent atelectasis. There is a 2.5 mm right lower lobe pulmonary nodule. Liver: There are several hepatic calcifications likely postinflammatory. No suspicious hepatic masses are visualized in this noncontrast study Gallbladder: Unremarkable. Spleen: There are scattered calcified splenic granulomas Pancreas: Unremarkable. Adrenal glands: Unremarkable. Kidneys: No renal, ureteral, or bladder calculi are visualized. There is no hydronephrosis. Bowel: There are no transition zones to indicate bowel obstruction. There is no evidence of acute diverticulitis. There is no evidence of acute appendicitis. Peritoneum: There is no intraperitoneal free air or abdominal ascites. Vasculature: The abdominal aorta is normal in course and caliber. Adenopathy: None. Pelvic viscera: The uterus is surgically absent. There is an indwelling Wasserman catheter which likely explain the air within the bladder. There is a 15 mm left ovarian cyst. Skeletal structures: Degenerative changes are present within the lumbar spine with multilevel spinal stenosis. IMPRESSION: 1. No evidence of bowel obstruction. No evidence of free air 2. No evidence of acute appendicitis. No evidence of acute diverticulitis 3. No renal, ureteral, or bladder calculi identified. No evidence of hydronephrosis. ACT 112: Negative or not required by law. Electronically signed by: Paulino Moreira M.D. 12/19/2020 5:50 PM Medications Administered Sodium Bicarbonate 150 meq/ (Dextrose) 1,150 mls @ 290 mls/hr IV .Q3H58M STA Stop: 12/19/20 20:52 Last Admin: 12/19/20 17:51 Dose: 290 mls/hr Documented by: [id number] Sodium Chloride (Nss 1000ml) 1,000 mls @ 125 mls/hr IV .Q8H CAS Stop: 01/18/21 17:59 Last Admin: 12/19/20 18:53 Dose: 125 mls/hr Documented by: [id number] Ceftriaxone Sodium (Rocephin) 2,000 mg in 70 mls @ 140 mls/hr IV NOW STA Stop: 12/19/20 19:07 Last Admin: 12/19/20 18:53 Dose: 140 mls/hr Documented by: [id number] Discontinued Medications Dextrose (Dextrose 50% 50 Ml Syringe) 100 ml IV NOW STA Stop: 12/19/20 16:54 Last Admin: 12/19/20 17:12 Dose: 100 ml Documented by: [id number] Admin: 12/19/20 17:11 Dose: 50 ml Documented by: [id number] Sodium Chloride (Nss) 500 mls @ 999 mls/hr IV .Q31M STA Stop: 12/19/20 17:12 Last Infusion: 12/19/20 17:40 Dose: 0 mls/hr Documented by: [id number] Admin: 12/19/20 16:53 Dose: 999 mls/hr Documented by: [id number] Calcium Gluconate () 1,000 mg in 60 mls @ 240 mls/hr IV NOW STA Stop: 12/19/20 17:05 Last Infusion: 12/19/20 17:24 Dose: 0 mls/hr Documented by: [id number] Admin: 12/19/20 17:05 Dose: 240 mls/hr Documented by: [id number] Calcium Gluconate () 1,000 mg in 60 mls @ 240 mls/hr IV NOW STA Stop: 12/19/20 17:07 Last Infusion: 12/19/20 17:30 Dose: 0 mls/hr Documented by: [id number] Admin: 12/19/20 17:17 Dose: 240 mls/hr Documented by: [id number] Insulin Human Regular 10 units (/ Syringe) 9.9 mls @ 3 mls/sec IV ONE STA Stop: 12/19/20 16:54 Last Admin: 12/19/20 17:11 Dose: 3 mls/sec Documented by: [id number] Cosigned by: [id number] Insulin Human Regular (Novolin-R Insulin Per Unit Charge) Confirm Administered Dose 1 units .ROUTE .STK-MED ONE Stop: 12/19/20 17:11 Last Admin: 12/19/20 17:20 Dose: Not Given Documented by: [id number] Patiromer (Patiromer Calcium Sorbitex 8.4 Gm Pack) 8.4 gm PO NOW STA Stop: 12/19/20 17:58 Last Admin: 12/19/20 18:35 Dose: 8.4 gm Documented by: [id number] ECG Rate (beats per minute): 52 Rhythm: sinus bradycardia COVID-19 Results Results COVID-19 Adm Lab Results: RBC 3.63 M/uL (4.2-5.4) L 12/19/20 WBC 7.56 K/uL (4.8-10.8) 12/19/20 Hgb 12.0 g/dL (12.0-16.0) 12/19/20 Hct 34.9 % (37-47) L 12/19/20 Plt Count 256 K/uL (130-400) 12/19/20 Neutrophils (%) (Auto) 61.4 % 12/19/20 Lymphocytes (%) (Auto) 28.3 % 12/19/20 Monocytes # (Auto) 0.65 K/uL (0.11-0.59) H 12/19/20 Eosinophils # (Auto) 0.09 K/uL (0-0.5) 12/19/20 Immature Granulocyte % (Auto) 0.4 % 12/19/20 Neutrophils # (Auto) 4.64 K/uL (1.4-6.5) 12/19/20 Lymphocytes # (Auto) 2.14 K/uL (1.2-3.4) 12/19/20 Monocytes # (Auto) 0.65 K/uL (0.11-0.59) H 12/19/20 Eosinophils # (Auto) 0.09 K/uL (0-0.5) 12/19/20 Basophils # (Auto) 0.01 K/uL (0-0.2) 12/19/20 Immature Granulocyte # (Auto) 0.03 K/uL (0.00-0.02) H 12/19/20 Na 136 mmol/L (136-145) 12/19/20 K 4.6 mmol/L (3.5-5.1) 12/19/20 Cl 103 mmol/L (98-107) 12/19/20 CO2 26 mmol/L (21-32) 12/19/20 Anion Gap 7.0 (3-11) 12/19/20 BUN 63 mg/dl (7-18) H 12/19/20 Creatinine 2.35 mg/dl (0.6-1.2) H 12/19/20 BUN/Creatinine Ratio 26.7 (10-20) H 12/19/20 Glucose Level 192 mg/dl (70-99) H 12/19/20 Ca 9.7 mg/dl (8.5-10.1) 12/19/20 Phosphorus Level 5.1 mg/dl (2.5-4.9) H 12/19/20 Total Bilirubin 0.4 mg/dl (0.2-1) 12/19/20 Direct Bilirubin 0.2 mg/dl (0-0.2) 12/19/20 AST/SGOT 30 U/L (15-37) 12/19/20 ALT/SGPT 42 U/L (12-78) 12/19/20 Alkaline Phosphatase 106 U/L (45-117) 12/19/20 Total Protein 7.1 gm/dl (6.4-8.2) 12/19/20 Albumin 3.9 gm/dl (3.4-5.0) 12/19/20 Globulin 3.2 gm/dl (2.5-4.0) 12/19/20 Albumin/Globulin Ratio 1.2 (0.9-2) 12/19/20 Total CK 69 U/L (26-192) 12/19/20 Troponin I < 0.015 ng/ml (0-0.045) 12/19/20 INR 1.0 (0.9-1.1) 12/19/20 COVID-19 PCR NEGATIVE (Negative) 12/19/20 Influenza Virus Type A (PCR) Negative (Neg) 12/19/20 Influenza Virus Type B (PCR) Negative (Neg) 12/19/20 Chest X-Ray 12/19/20 Code Status & VTE Plan Code Status Full Code VTE Prophylaxis Plan VTE Prophylaxis will be ordered: Yes Supervising Physician Co-Signing Physician Notes Patient is an 85-year-old female with history of hypertension, macular degeneration and other medical problems presents with history of decreased urine output, generalized weakness, tiredness and poor oral intake. She also admits to have balance issues with ambulation. Please review HPI for complete details of presentation. She was noted to be bradycardic while in ED. Her sodium l evels 132, potassium levels 5.9, HERMAN with creatinine level 2.79. Patient received treatment for hyperkalemia while in ED. Heart rate improved to low 50s while in ED. On exam patient is moderately built and nourished, no apparent distress, normocephalic atraumatic, lungs are clear to auscultation, normal breath sounds, S1-S2, no murmur, bradycardia, 1+ bilateral lower extremity edema, abdomen soft, nontender, normal bowel sounds, alert, awake, oriented, grossly no focal neurologic deficits. Patient is admitted for management of symptomatic bradycardia, HERMAN, hyperkalemia and hypermagnesemia. Lyme screen is positive. She denies any tick bites or rash but admits that her dog had a tick removed 2 weeks ago. We will start her on Rocephin for possible Lyme's carditis. Pacer pads at bedside. Will consult cardiology for further evaluation. Will hold metoprolol. Avoid any AV alexis blocking agents. Will monitor BMP for resolution of hyperkalemia. Will avoid any nephrotoxic agents and start her on IV fluids and check renal ultrasound. Will consult cardiology and nephrology for further evaluation. I personally reviewed the record. Patient is interviewed and examined at bedside. Patient's care is coordinated with Mirta Soliz PA-C. Please refer to the documentation above for details of patient's presentation and for discussion of other issues.
[2020-12-19 20:42] LABS: BUN Creatinine Ratio 26.7 (10-20); Calcium 9.7 mg/dl (8.5-10.1); Creatinine Clr Calc Pharmacy 18.4 ml/min; Est GFR (African American) 21.5; Est GFR (Non-African American) 18.5; Potassium 4.6 mmol/L (3.5-5.1)
[2020-12-19] MEDS ORDERED: POLYETHYLENE (MIRALAX) 17 GM PACK PO PRN (21:00)
[2020-12-19] MEDS ORDERED: ACETAMINOPHEN 325 MG TAB PO PRN (21:00)
[2020-12-19] MEDS ORDERED: ONDANSETRON INJ 2 MG/ML 2 ML VIAL IV PRN (21:00)
[2020-12-19 22:39] LABS: BUN Creatinine Ratio 30.1 (10-20); Calcium 9.6 mg/dl (8.5-10.1); Creatinine Clr Calc Pharmacy 22.5 ml/min; Est GFR (African American) 27.2; Est GFR (Non-African American) 23.5; Potassium 4.3 mmol/L (3.5-5.1)
[2020-12-19] MEDS: rOPINIRole HCL 1 MG TABLET PO SCH (22:45)
[2020-12-19] MEDS: HEPARIN SOD 5,000 UNIT/0.5 ML VIAL SQ SCH (22:45)
[2020-12-19] MEDS: SODIUM CHLORIDE 0.9% 1000ML 1,000 ML IV SCH (22:46)
[2020-12-20] MEDS: HEPARIN SOD 5,000 UNIT/0.5 ML VIAL SQ SCH ×3 (05:44→20:30)
[2020-12-20 06:29] LABS: Hematocrit (blood only) 35.5 % (37-47); Hemoglobin 11.9 g/dL (12.0-16.0); Mean Corpuscular Hemoglobin 32.5 pg (25-34); Mean Corpuscular Hgb Conc 33.5 g/dL (32-36); Mean Platelet Volume 10.3 fL (7.4-10.4); Platelet Count 199 K/uL (130-400); RDW Coefficient of Variation 13.8 % (11.5-14.5); RDW Standard Deviation 48.9 fL (36.4-46.3); Red Blood Count 3.66 M/uL (4.2-5.4)
[2020-12-20 06:48] LABS: Basophils # (auto) 0.01 K/uL (0-0.2); Basophils % (auto) 0.2 %; Eosinophils # (auto) 0.21 K/uL (0-0.5); Eosinophils % (auto) 4.2 %; Immature Granulocytes # (auto) 0.01 K/uL (0.00-0.02); Immature Granulocytes % (auto) 0.2 %; Lymphocytes # (auto) 2.54 K/uL (1.2-3.4); Lymphocytes % (auto) 50.8 %; Monocytes # (auto) 0.43 K/uL (0.11-0.59); Monocytes % (auto) 8.6 %
[2020-12-20 07:06] LABS: Albumin Level 2.9 gm/dl (3.4-5.0); BUN Creatinine Ratio 37.1 (10-20); Calcium 9.8 mg/dl (8.5-10.1); Creatinine Clr Calc Pharmacy 35.5 ml/min; Est GFR (African American) 47.9; Est GFR (Non-African American) 41.3; Magnesium 1.9 mg/dl (1.8-2.4)
[2020-12-20 07:14] LABS: Bilirubin,Total 0.4 mg/dl (0.2-1); Globulin 2.9 gm/dl (2.5-4.0); Phosphorus 2.9 mg/dl (2.5-4.9); Total Protein 5.9 gm/dl (6.4-8.2)
--- NOTE | 2020-12-20 08:17 | Ultrasound Report ---
EXAMINATION: RENAL ULTRASOUND CLINICAL HISTORY: Acute renal insufficiency COMPARISON STUDY: Noncontrast CT scan dated 12/19/2020 FINDINGS: The right kidney measures 8.8 cm. The left kidney measures 9.7 cm. There is no evidence of hydronephrosis. There are no renal masses. The bladder was empty at the time of scanning. There is a Wasserman catheter present. IMPRESSION : 1. No solid renal masses identified 2. No evidence of hydronephrosis ACT 112: Negative or not required by law. Electronically signed by: Paulino Moreira M.D. 12/20/2020 8:16 AM
[2020-12-20] MEDS: predniSONE 5 MG TAB PO SCH (08:21)
--- NOTE | 2020-12-20 08:26 | Hospitalist Progress Note ---
Date of Service December 20, 2020 Assessment & Plan (1) HERMAN (acute kidney injury): (2) Bradycardia: (3) Positive Lyme disease serology: (4) Hyperkalemia: (5) Hypermagnesemia: Lyme carditis This is a 85-year-old female who has significant past medical history of hypertension, macular degeneration, osteopenia, osteoarthritis who presents to ED secondary to decreased urination x2 to 3 days. Patient presents with renal failure, BUN 67, creatinine 2.79, last creatinine 0.9 on 11/11/2020. Evidence of hyperkalemia and hypermagnesemia likely in setting of HERMAN along with taking daily supplementation. She received treatment for hyperkalemia with calcium gluconate, regular insulin, D50 and patriomer. She has also received gentle IV hydration while in ER. No known tick bite, but initial Lyme serology positive for IgM antibody. 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 Echocardiogram External pacer pads at bedside 2 g IV Rocephin, await Western blot Hold nephrotoxic agents including lisinopril, HCTZ, potassium and magnesium supplements, NSAIDs Hold metoprolol in setting of bradycardia Obtain renal ultrasound Consult nephrology secondary to HERMAN Patient's electrolytes improved, urine output improved, heart rate improved as well Patient is feeling much better Continue close monitoring, IV ceftriaxone Nephrology consulted, HERMAN secondary to bradycardia, now significantly improved Cardiology also consulted, given hypotension now, will stop IV fluids and restart some of her home blood pressure medications, amlodipine and lisinopril (6) HTN (hypertension): On metoprolol, lisinopril/HCTZ and amlodipine as outpatient Held all initially in setting of hypotension and HERMAN on admission Restart amlodipine and lisinopril Hydralazine as needed (7) Osteoarthritis: Continue daily prednisone (8) Macular degeneration: States recently lost drivers license secondary to visual loss (9) Restless legs syndrome (RLS): Continue Requip (10) DVT prophylaxis: SQ Heparin Dispo:PCU PCP: Dr. Hansen FULL CODE Admission and Anticipated Discharge Date Admission Date: December 19, 2020 Subjective Patient seen in follow-up of HERMAN, bradycardia, in the setting of Lyme carditis Currently electrolytes improved, creatinine improved, also heart rate improved Patient overall feels better today, specifically denies any chest pain, shortness of breath, abdominal pain Urine output much improved Cardiology and nephrology following. Review of Systems Review of Systems: All systems reviewed & are unremarkable except as noted in HPI & below Constitutional: no fever and no chills Respiratory: no cough and no dyspnea Cardiovascular: no chest pain and no palpitations Gastrointestinal: no abdominal pain, no nausea and no vomiting Physical Exam Physical Exam: Constitutional: WD/WN, elderly, female, in NAD, sitting up in bed, pleasant, conversing easily Head: Normocephalic, Atraumatic Eyes: PERRL, EOMI, conjunctivae normal, anicteric sclerae ENMT: external ear and nose normal, oropharynx normal Neck: trachea midline, no thyromegaly normal visual inspection Respiratory: normal respiratory effort, lungs clear to auscultation, no wheeze, rales, rhonchi. Normal insp/exp effort, no accessory muscle use Cardiovascular: RRR, no murmur, trace b/l lower extremity venous stasis changes, small skin tear to anterior pretibial surface on right lower extremity Chest: normal inspection of chest , external pacer pads on anterior chest wall Abdomen: normal bowel sounds, soft, nontender Musculoskeletal: no cyanosis or clubbing, extremities motor strength 5/5, moves extremities Skin: no rashes, warm and dry normal turgor Neurologic: PERRL, EOMI,no face palsy, no dysarthria, speech fluent, moves all extremities Psychiatric: A+Ox3, euthymic affect Results & Data Results & Data ([facility]) Vital Signs (Past 12 Hours) Vital Signs Temp Pulse Pulse Resp BP Pulse Ox Pulse Ox 12/20/20 03:17 36.6 C 50 L 18 134/69 96 12/19/20 23:32 36.4 C L 52 L 16 143/78 H 99 12/19/20 23:00 47 L 12/19/20 21:00 36.5 C 52 L 20 144/56 H 94 94 Laboratory Results 12/20/20 12/20/20 12/20/20 Range/Units 06:15 06:15 06:15 WBC 5.00 (4.8-10.8) K/uL RBC 3.66 L (4.2-5.4) M/uL Hgb 11.9 L (12.0-16.0) g/dL POC Hgb (12.0-16.0) g/dl Hct 35.5 L (37-47) % POC Hct (37-47) % MCV 97.0 (80-100) fL MCH 32.5 (25-34) pg MCHC 33.5 (32-36) g/dL RDW Std Deviation 48.9 H (36.4-46.3) fL RDW Coeff of Murtaza 13.8 (11.5-14.5) % Plt Count 199 (130-400) K/uL MPV 10.3 (7.4-10.4) fL Immature Gran % (Auto) 0.2 % Neut % (Auto) 36.0 % Lymph % (Auto) 50.8 % [place] % (Auto) 8.6 % Eos % (Auto) 4.2 % Baso % (Auto) 0.2 % Neut # (Auto) 1.80 (1.4-6.5) K/uL Lymph # (Auto) 2.54 (1.2-3.4) K/uL [place] # (Auto) 0.43 (0.11-0.59) K/uL Eos # (Auto) 0.21 (0-0.5) K/uL Baso # (Auto) 0.01 (0-0.2) K/uL Immature Gran # (Auto) 0.01 (0.00-0.02) K/uL PT (9.0-12.0) Seconds INR (0.9-1.1) POC Sodium (135-144) mmol/L Sodium 138 (136-145) mmol/L POC Potassium (3.3-5.0) mmol/L Potassium 4.0 (3.5-5.1) mmol/L POC Chloride (101-112) mmol/L Chloride 108 H (98-107) mmol/L Carbon Dioxide 26 (21-32) mmol/L POC Total CO2 (24-31) mmol/L Anion Gap 4.0 (3-11) POC Anion Gap (16-25) mmol/L POC BUN (7-18) mg/dl BUN 45 H (7-18) mg/dl Creatinine 1.21 H D (0.6-1.2) mg/dl POC Creatinine (0.6-1.3) mg/dl Est Cr Clr Drug Dosing 35.5 ml/min Est GFR ( Amer) 47.9 Est GFR (Non-Af Amer) 41.3 BUN/Creatinine Ratio 37.1 H (10-20) Glucose 92 (70-99) mg/dl POC Glucose (other) (70-99) mg/dl Estimat Average Glucose Pending Hemoglobin A1c Pending Calcium 9.8 (8.5-10.1) mg/dl POC Ioniz Calcium Klaus (1.12-1.32) mmol/l Phosphorus 2.9 D (2.5-4.9) mg/dl Magnesium 1.9 (1.8-2.4) mg/dl Total Bilirubin 0.4 (0.2-1) mg/dl Direct Bilirubin (0-0.2) mg/dl AST 27 (15-37) U/L ALT 40 (12-78) U/L Alkaline Phosphatase 92 (45-117) U/L Total Creatine Kinase (26-192) U/L Troponin I (0-0.045) ng/ml Total Protein 5.9 L (6.4-8.2) gm/dl Albumin 2.9 L (3.4-5.0) gm/dl Globulin 2.9 (2.5-4.0) gm/dl Albumin/Globulin Ratio 1.0 (0.9-2) Lipase (73-393) U/L TSH (0.300-4.500) uIu/ml Urine Color Urine Appearance (Clear) Urine pH (4.5-7.5) Ur Specific [place] (1.000-1.030) Urine Protein (Negative) Urine Glucose (UA) (Negative) Urine Ketones (Negative) Urine Blood (Negative) Urine Nitrite (Negative) Urine Bilirubin (Negative) Urine Urobilinogen (Negative) Ur Leukocyte Esterase (Negative) Urine WBC (Auto) (0-5) /hpf Urine RBC (Auto) (0-4) /hpf U Hyaline Cast (Auto) (0-5) /lpf U Epithel Cells (Auto) (0-5) /lpf Urine Bacteria (Auto) (Negative) Urine Crystals (None Prsent) Lyme Disease IgG Ab (Negative) Lyme IgG (Western Blot) Lyme IgG 18 kDa Band Lyme IgG 23 kDa Band Lyme IgG 28 kDa Band Lyme IgG 30 kDa Band Lyme IgG 39 kDa Band Lyme IgG 41 kDa Band Lyme IgG 45 kDa Band Lyme IgG 58 kDa Band Lyme IgG 66 kDa Band Lyme IgG 93 kDa Band Lyme IgM Ab (WB) Lyme Disease IgM Ab (Negative) Lyme IgM 23 kDa Band Lyme IgM 39 kDa Band Lyme IgM 41 kDa Band COVID-19 Eval Order SARS-CoV-2 (PCR) (Negative) Influenza Type A (PCR) (Neg) Influenza Type B (PCR) (Neg) RSV (RT-PCR) (Neg) 12/19/20 12/19/20 12/19/20 Range/Units 22:02 19:39 16:47 WBC (4.8-10.8) K/uL RBC (4.2-5.4) M/uL Hgb (12.0-16.0) g/dL POC Hgb (12.0-16.0) g/dl Hct (37-47) % POC Hct (37-47) % MCV (80-100) fL MCH (25-34) pg MCHC (32-36) g/dL RDW Std Deviation (36.4-46.3) fL RDW Coeff of Murtaza (11.5-14.5) % Plt Count (130-400) K/uL MPV (7.4-10.4) fL Immature Gran % (Auto) % Neut % (Auto) % Lymph % (Auto) % [place] % (Auto) % Eos % (Auto) % Baso % (Auto) % Neut # (Auto) (1.4-6.5) K/uL Lymph # (Auto) (1.2-3.4) K/uL [place] # (Auto) (0.11-0.59) K/uL Eos # (Auto) (0-0.5) K/uL Baso # (Auto) (0-0.2) K/uL Immature Gran # (Auto) (0.00-0.02) K/uL PT (9.0-12.0) Seconds INR (0.9-1.1) POC Sodium (135-144) mmol/L Sodium 135 L 136 (136-145) mmol/L POC Potassium (3.3-5.0) mmol/L Potassium 4.3 4.6 D (3.5-5.1) mmol/L POC Chloride (101-112) mmol/L Chloride 103 103 (98-107) mmol/L Carbon Dioxide 26 26 (21-32) mmol/L POC Total CO2 (24-31) mmol/L Anion Gap 7.0 7.0 (3-11) POC Anion Gap (16-25) mmol/L POC BUN (7-18) mg/dl BUN 58 H 63 H (7-18) mg/dl Creatinine 1.93 H D 2.35 H D (0.6-1.2) mg/dl POC Creatinine (0.6-1.3) mg/dl Est Cr Clr Drug Dosing 22.5 18.4 ml/min Est GFR ( Amer) 27.2 21.5 Est GFR (Non-Af Amer) 23.5 18.5 BUN/Creatinine Ratio 30.1 H 26.7 H (10-20) Glucose 163 H 192 H (70-99) mg/dl POC Glucose (other) (70-99) mg/dl Estimat Average Glucose Hemoglobin A1c Calcium 9.6 9.7 (8.5-10.1) mg/dl POC Ioniz Calcium Klaus (1.12-1.32) mmol/l Phosphorus (2.5-4.9) mg/dl Magnesium (1.8-2.4) mg/dl Total Bilirubin (0.2-1) mg/dl Direct Bilirubin (0-0.2) mg/dl AST (15-37) U/L ALT (12-78) U/L Alkaline Phosphatase (45-117) U/L Total Creatine Kinase (26-192) U/L Troponin I (0-0.045) ng/ml Total Protein (6.4-8.2) gm/dl Albumin (3.4-5.0) gm/dl Globulin (2.5-4.0) gm/dl Albumin/Globulin Ratio (0.9-2) Lipase (73-393) U/L TSH (0.300-4.500) uIu/ml Urine Color Urine Appearance (Clear) Urine pH (4.5-7.5) Ur Specific [place] (1.000-1.030) Urine Protein (Negative) Urine Glucose (UA) (Negative) Urine Ketones (Negative) Urine Blood (Negative) Urine Nitrite (Negative) Urine Bilirubin (Negative) Urine Urobilinogen (Negative) Ur Leukocyte Esterase (Negative) Urine WBC (Auto) (0-5) /hpf Urine RBC (Auto) (0-4) /hpf U Hyaline Cast (Auto) (0-5) /lpf U Epithel Cells (Auto) (0-5) /lpf Urine Bacteria (Auto) (Negative) Urine Crystals (None Prsent) Lyme Disease IgG Ab (Negative) Lyme IgG (Western Blot) Lyme IgG 18 kDa Band Lyme IgG 23 kDa Band Lyme IgG 28 kDa Band Lyme IgG 30 kDa Band Lyme IgG 39 kDa Band Lyme IgG 41 kDa Band Lyme IgG 45 kDa Band Lyme IgG 58 kDa Band Lyme IgG 66 kDa Band Lyme IgG 93 kDa Band Lyme IgM Ab (WB) Lyme Disease IgM Ab (Negative) Lyme IgM 23 kDa Band Lyme IgM 39 kDa Band Lyme IgM 41 kDa Band COVID-19 Eval Order SARS-CoV-2 (PCR) NEGATIVE (Negative) Influenza Type A (PCR) Negative (Neg) Influenza Type B (PCR) Negative (Neg) RSV (RT-PCR) Negative (Neg) 12/19/20 12/19/20 12/19/20 Range/Units 16:47 16:44 16:43 WBC (4.8-10.8) K/uL RBC (4.2-5.4) M/uL Hgb (12.0-16.0) g/dL POC Hgb 12.2 (12.0-16.0) g/dl Hct (37-47) % POC Hct 36 L (37-47) % MCV (80-100) fL MCH (25-34) pg MCHC (32-36) g/dL RDW Std Deviation (36.4-46.3) fL RDW Coeff of Murtaza (11.5-14.5) % Plt Count (130-400) K/uL MPV (7.4-10.4) fL Immature Gran % (Auto) % Neut % (Auto) % Lymph % (Auto) % [place] % (Auto) % Eos % (Auto) % Baso % (Auto) % Neut # (Auto) (1.4-6.5) K/uL Lymph # (Auto) (1.2-3.4) K/uL [place] # (Auto) (0.11-0.59) K/uL Eos # (Auto) (0-0.5) K/uL Baso # (Auto) (0-0.2) K/uL Immature Gran # (Auto) (0.00-0.02) K/uL PT (9.0-12.0) Seconds INR (0.9-1.1) POC Sodium 132 L (135-144) mmol/L Sodium (136-145) mmol/L POC Potassium 5.9 H (3.3-5.0) mmol/L Potassium (3.5-5.1) mmol/L POC Chloride 101 (101-112) mmol/L Chloride (98-107) mmol/L Carbon Dioxide (21-32) mmol/L POC Total CO2 24 (24-31) mmol/L Anion Gap (3-11) POC Anion Gap 14.0 L (16-25) mmol/L POC BUN 62 H (7-18) mg/dl BUN (7-18) mg/dl Creatinine (0.6-1.2) mg/dl POC Creatinine 3.2 H (0.6-1.3) mg/dl Est Cr Clr Drug Dosing ml/min Est GFR ( Amer) Est GFR (Non-Af Amer) BUN/Creatinine Ratio (10-20) Glucose (70-99) mg/dl POC Glucose (other) 153 H (70-99) mg/dl Estimat Average Glucose Hemoglobin A1c Calcium (8.5-10.1) mg/dl POC Ioniz Calcium Klaus 1.30 (1.12-1.32) mmol/l Phosphorus (2.5-4.9) mg/dl Magnesium (1.8-2.4) mg/dl Total Bilirubin (0.2-1) mg/dl Direct Bilirubin (0-0.2) mg/dl AST (15-37) U/L ALT (12-78) U/L Alkaline Phosphatase (45-117) U/L Total Creatine Kinase (26-192) U/L Troponin I (0-0.045) ng/ml Total Protein (6.4-8.2) gm/dl Albumin (3.4-5.0) gm/dl Globulin (2.5-4.0) gm/dl Albumin/Globulin Ratio (0.9-2) Lipase (73-393) U/L TSH (0.300-4.500) uIu/ml Urine Color Dark Yellow Urine Appearance Cloudy A (Clear) Urine pH 5.0 (4.5-7.5) Ur Specific [place] 1.022 (1.000-1.030) Urine Protein Trace H (Negative) Urine Glucose (UA) Negative (Negative) Urine Ketones Trace H (Negative) Urine Blood Negative (Negative) Urine Nitrite Negative (Negative) Urine Bilirubin Negative (Negative) Urine Urobilinogen Negative (Negative) Ur Leukocyte Esterase Negative (Negative) Urine WBC (Auto) 1-5 (0-5) /hpf Urine RBC (Auto) 5-10 H (0-4) /hpf U Hyaline Cast (Auto) 10-30 H (0-5) /lpf U Epithel Cells (Auto) 20-30 H (0-5) /lpf Urine Bacteria (Auto) Negative (Negative) Urine Crystals Calcium Oxalate A (None Prsent) Lyme Disease IgG Ab (Negative) Lyme IgG (Western Blot) Lyme IgG 18 kDa Band Lyme IgG 23 kDa Band Lyme IgG 28 kDa Band Lyme IgG 30 kDa Band Lyme IgG 39 kDa Band Lyme IgG 41 kDa Band Lyme IgG 45 kDa Band Lyme IgG 58 kDa Band Lyme IgG 66 kDa Band Lyme IgG 93 kDa Band Lyme IgM Ab (WB) Lyme Disease IgM Ab (Negative) Lyme IgM 23 kDa Band Lyme IgM 39 kDa Band Lyme IgM 41 kDa Band COVID-19 Eval Order CovFluRsv at [facility] SARS-CoV-2 (PCR) (Negative) Influenza Type A (PCR) (Neg) Influenza Type B (PCR) (Neg) RSV (RT-PCR) (Neg) 12/19/20 12/19/20 12/19/20 Range/Units 16:40 16:40 16:40 WBC (4.8-10.8) K/uL RBC (4.2-5.4) M/uL Hgb (12.0-16.0) g/dL POC Hgb (12.0-16.0) g/dl Hct (37-47) % POC Hct (37-47) % MCV (80-100) fL MCH (25-34) pg MCHC (32-36) g/dL RDW Std Deviation (36.4-46.3) fL RDW Coeff of Murtaza (11.5-14.5) % Plt Count (130-400) K/uL MPV (7.4-10.4) fL Immature Gran % (Auto) % Neut % (Auto) % Lymph % (Auto) % [place] % (Auto) % Eos % (Auto) % Baso % (Auto) % Neut # (Auto) (1.4-6.5) K/uL Lymph # (Auto) (1.2-3.4) K/uL [place] # (Auto) (0.11-0.59) K/uL Eos # (Auto) (0-0.5) K/uL Baso # (Auto) (0-0.2) K/uL Immature Gran # (Auto) (0.00-0.02) K/uL PT (9.0-12.0) Seconds INR (0.9-1.1) POC Sodium (135-144) mmol/L Sodium 134 L (136-145) mmol/L POC Potassium (3.3-5.0) mmol/L Potassium 5.9 H (3.5-5.1) mmol/L POC Chloride (101-112) mmol/L Chloride 103 (98-107) mmol/L Carbon Dioxide 24 (21-32) mmol/L POC Total CO2 (24-31) mmol/L Anion Gap 7.0 (3-11) POC Anion Gap (16-25) mmol/L POC BUN (7-18) mg/dl BUN 67 H (7-18) mg/dl Creatinine 2.79 H (0.6-1.2) mg/dl POC Creatinine (0.6-1.3) mg/dl Est Cr Clr Drug Dosing 15.5 ml/min Est GFR ( Amer) 17.5 Est GFR (Non-Af Amer) 15.1 BUN/Creatinine Ratio 24.0 H (10-20) Glucose 155 H (70-99) mg/dl POC Glucose (other) (70-99) mg/dl Estimat Average Glucose Hemoglobin A1c Calcium 9.6 (8.5-10.1) mg/dl POC Ioniz Calcium Klaus (1.12-1.32) mmol/l Phosphorus 5.1 H (2.5-4.9) mg/dl Magnesium 2.6 H (1.8-2.4) mg/dl Total Bilirubin 0.4 (0.2-1) mg/dl Direct Bilirubin 0.2 (0-0.2) mg/dl AST 30 (15-37) U/L ALT 42 (12-78) U/L Alkaline Phosphatase 106 (45-117) U/L Total Creatine Kinase 69 (26-192) U/L Troponin I < 0.015 (0-0.045) ng/ml Total Protein 7.1 (6.4-8.2) gm/dl Albumin 3.9 (3.4-5.0) gm/dl Globulin 3.2 (2.5-4.0) gm/dl Albumin/Globulin Ratio 1.2 (0.9-2) Lipase 260 (73-393) U/L TSH 1.410 (0.300-4.500) uIu/ml Urine Color Urine Appearance (Clear) Urine pH (4.5-7.5) Ur Specific [place] (1.000-1.030) Urine Protein (Negative) Urine Glucose (UA) (Negative) Urine Ketones (Negative) Urine Blood (Negative) Urine Nitrite (Negative) Urine Bilirubin (Negative) Urine Urobilinogen (Negative) Ur Leukocyte Esterase (Negative) Urine WBC (Auto) (0-5) /hpf Urine RBC (Auto) (0-4) /hpf U Hyaline Cast (Auto) (0-5) /lpf U Epithel Cells (Auto) (0-5) /lpf Urine Bacteria (Auto) (Negative) Urine Crystals (None Prsent) Lyme Disease IgG Ab Negative (Negative) Lyme IgG (Western Blot) Pending Lyme IgG 18 kDa Band Pending Lyme IgG 23 kDa Band Pending Lyme IgG 28 kDa Band Pending Lyme IgG 30 kDa Band Pending Lyme IgG 39 kDa Band Pending Lyme IgG 41 kDa Band Pending Lyme IgG 45 kDa Band Pending Lyme IgG 58 kDa Band Pending Lyme IgG 66 kDa Band Pending Lyme IgG 93 kDa Band Pending Lyme IgM Ab (WB) Pending Lyme Disease IgM Ab Positive A (Negative) Lyme IgM 23 kDa Band Pending Lyme IgM 39 kDa Band Pending Lyme IgM 41 kDa Band Pending COVID-19 Eval Order SARS-CoV-2 (PCR) (Negative) Influenza Type A (PCR) (Neg) Influenza Type B (PCR) (Neg) RSV (RT-PCR) (Neg) 12/19/20 12/19/20 Range/Units 16:40 16:40 WBC 7.56 (4.8-10.8) K/uL RBC 3.63 L (4.2-5.4) M/uL Hgb 12.0 (12.0-16.0) g/dL POC Hgb (12.0-16.0) g/dl Hct 34.9 L (37-47) % POC Hct (37-47) % MCV 96.1 (80-100) fL MCH 33.1 (25-34) pg MCHC 34.4 (32-36) g/dL RDW Std Deviation 49.0 H (36.4-46.3) fL RDW Coeff of Murtaza 13.9 (11.5-14.5) % Plt Count 256 (130-400) K/uL MPV 10.4 (7.4-10.4) fL Immature Gran % (Auto) 0.4 % Neut % (Auto) 61.4 % Lymph % (Auto) 28.3 % [place] % (Auto) 8.6 % Eos % (Auto) 1.2 % Baso % (Auto) 0.1 % Neut # (Auto) 4.64 (1.4-6.5) K/uL Lymph # (Auto) 2.14 (1.2-3.4) K/uL [place] # (Auto) 0.65 H (0.11-0.59) K/uL Eos # (Auto) 0.09 (0-0.5) K/uL Baso # (Auto) 0.01 (0-0.2) K/uL Immature Gran # (Auto) 0.03 H (0.00-0.02) K/uL PT 10.1 (9.0-12.0) Seconds INR 1.0 (0.9-1.1) POC Sodium (135-144) mmol/L Sodium (136-145) mmol/L POC Potassium (3.3-5.0) mmol/L Potassium (3.5-5.1) mmol/L POC Chloride (101-112) mmol/L Chloride (98-107) mmol/L Carbon Dioxide (21-32) mmol/L POC Total CO2 (24-31) mmol/L Anion Gap (3-11) POC Anion Gap (16-25) mmol/L POC BUN (7-18) mg/dl BUN (7-18) mg/dl Creatinine (0.6-1.2) mg/dl POC Creatinine (0.6-1.3) mg/dl Est Cr Clr Drug Dosing ml/min Est GFR ( Amer) Est GFR (Non-Af Amer) BUN/Creatinine Ratio (10-20) Glucose (70-99) mg/dl POC Glucose (other) (70-99) mg/dl Estimat Average Glucose Hemoglobin A1c Calcium (8.5-10.1) mg/dl POC Ioniz Calcium Klaus (1.12-1.32) mmol/l Phosphorus (2.5-4.9) mg/dl Magnesium (1.8-2.4) mg/dl Total Bilirubin (0.2-1) mg/dl Direct Bilirubin (0-0.2) mg/dl AST (15-37) U/L ALT (12-78) U/L Alkaline Phosphatase (45-117) U/L Total Creatine Kinase (26-192) U/L Troponin I (0-0.045) ng/ml Total Protein (6.4-8.2) gm/dl Albumin (3.4-5.0) gm/dl Globulin (2.5-4.0) gm/dl Albumin/Globulin Ratio (0.9-2) Lipase (73-393) U/L TSH (0.300-4.500) uIu/ml Urine Color Urine Appearance (Clear) Urine pH (4.5-7.5) Ur Specific [place] (1.000-1.030) Urine Protein (Negative) Urine Glucose (UA) (Negative) Urine Ketones (Negative) Urine Blood (Negative) Urine Nitrite (Negative) Urine Bilirubin (Negative) Urine Urobilinogen (Negative) Ur Leukocyte Esterase (Negative) Urine WBC (Auto) (0-5) /hpf Urine RBC (Auto) (0-4) /hpf U Hyaline Cast (Auto) (0-5) /lpf U Epithel Cells (Auto) (0-5) /lpf Urine Bacteria (Auto) (Negative) Urine Crystals (None Prsent) Lyme Disease IgG Ab (Negative) Lyme IgG (Western Blot) Lyme IgG 18 kDa Band Lyme IgG 23 kDa Band Lyme IgG 28 kDa Band Lyme IgG 30 kDa Band Lyme IgG 39 kDa Band Lyme IgG 41 kDa Band Lyme IgG 45 kDa Band Lyme IgG 58 kDa Band Lyme IgG 66 kDa Band Lyme IgG 93 kDa Band Lyme IgM Ab (WB) Lyme Disease IgM Ab (Negative) Lyme IgM 23 kDa Band Lyme IgM 39 kDa Band Lyme IgM 41 kDa Band COVID-19 Eval Order SARS-CoV-2 (PCR) (Negative) Influenza Type A (PCR) (Neg) Influenza Type B (PCR) (Neg) RSV (RT-PCR) (Neg) Medications Administered Current Inpatient Medications Acetaminophen (Acetaminophen 325 Mg Tab) 650 mg PO Q4H PRN PRN Reason: Pain or Fever Stop: 01/18/21 20:59 Heparin Sodium (Porcine) (Heparin Sod 5,000 Unit/0.5 Ml Vial) 5,000 units SQ Q8 CAS Stop: 01/18/21 21:59 Last Admin: 12/20/20 05:44 Dose: 5,000 units Documented by: Sodium Chloride (Nss 1000ml) 1,000 mls @ 80 mls/hr IV .[id number] [facility] Stop: 01/18/21 20:59 Last Admin: 12/19/20 22:46 Dose: 80 mls/hr Documented by: Ceftriaxone Sodium 2,000 mg/ (Dextrose) 50 mls @ 100 mls/hr IV Q24H [facility]; Protocol Stop: 12/30/20 17:59 Ondansetron HCl (Ondansetron Inj 2 Mg/Ml 2 Ml Vial) 4 mg IV Q6H PRN PRN Reason: Nausea Stop: 01/18/21 20:59 Polyethylene Glycol (Polyethylene (Miralax) 17 Gm Pack) 17 gm PO DAILY PRN PRN Reason: Constipation Stop: 01/18/21 20:59 Prednisone (Prednisone 5 Mg Tab) 5 mg PO DAILY CAS Stop: 01/19/21 08:59 Last Admin: 12/20/20 08:21 Dose: 5 mg Documented by: Ropinirole HCl (Ropinirole Hcl 1 Mg Tablet) 1 mg PO HS [facility] Stop: 01/18/21 20:59 Last Admin: 12/19/20 22:45 Dose: 1 mg Documented by:
--- NOTE | 2020-12-20 08:42 | Cardiology Consultation ---
Date of Consultation December 20, 2020 Assessment & Plan (1) Symptomatic bradycardia: No longer is symptomatic with bradycardia. Patient has been SR over night with HR in the 50s on Tele over night. Rhythm on EKG showed a 2nd degree Mobitz type 2. Continue to hold off on beta nreis at this time. Present on Admission?: Yes (2) HERMAN (acute kidney injury): Scr improved to 1.21, however, still above baseline. Patient is feeling much stronger and has been urinating adequately. Will defer to hospitalist for recommendations in regards to IVF and Wasserman management. Once Wasserman is removed would recommend a post void residual to ensure that patient is not having problems with urinary retention. Present on Admission?: Yes (3) HTN, goal below 140/80: Normally well controlled on home medications. Currently on hold due to HERMAN and hypotension. Patient is hypertensive this morning. sCr improved. Reccomend that we restart Lisinopril 20 mg daily along with Norvasc 10 mg daily. Would not restart HCTZ given her age and risk of dehydration. (4) Positive Lyme disease serology: Will defer to hospitalist group for the treatment of Lyme Supervising Physician Co-Signing Physician Notes Patient seen and examined with Ursula FLYNN. Agree with findings and assessment as above. 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 Heart rhythms have significantly improved with first few rounds of antibiotics, no need for steroids at this time. Would like to continue to monitor overnight. Appreciate nephrology colleagues input on acute kidney injury. We will restart Norvasc for further blood pressure control at this time and lisinopril if okay from a renal standpoint. Would not restart HCTZ given her age. History of Present Illness Reason for Consultation: Bradycardia Requesting Physician: [facility] Attending Physician: Presley Bond MD History of Present Illness 85 year old female with a past medical history of hypertension presented to the ED with complaints of decreased urination x3 days- states that she lost the urge to urinate. Also noted to have some severe lower extremity edema. Patient was found to have an HERMAN with a creatine of 2.79 (previously was 0.9 on 11/11/20) and have an +IGM with Lyme Serology. Patient was bradycardic and symptomatic on admission, noted that she felt extremely weak and could fall asleep at any time. Admitted to PCU and was given IV Fluids along with 2g of IV Rocephin. Beta neris and BP meds held due to symptomatic bradycardia and hypotension. At time of examination patient was resting comfortably in bed. Today the patient states she is feeling significantly improved. Unsure how she got Lyme, does not recall getting bit by a tick, however, was working in her garden recently and gibbons d to pull a tick off of her dog. Notes that her dog has been acting "funny" but she goes to the vet on Wednesday. She currently has a Wasserman cath in place and is urinating a large amount of clear yellow urine. Patient is has urinated about 3L, sCr this am was 1.21. BP is elevated 182/78. No chest pain, shortness of breath, palpitations, dizziness, syncope or near syncope. No orthopnea, PND, or increased lower extremity edema. No fever, chills, cough, hematochezia, melena, or hemoptysis. Weakness has significantly improved, however, patient has not been up moving much. Echo results reviewed with Dr. Kevin. No signs of pericardial effusion/pericarditis. EKG today showed Mobitz 2 with a HR in the 50s- asymptomatic. She continues to receive NSS @ 80 mg/hr and ceftriaxone 2g every 24 hrs. Past Medical History: HTN GERD Chronic lumber pain RLS Allergies Allergy/AdvReac Type Severity Reaction Status Date / Time adhesive Allergy Unknown RED, Verified 12/19/20 17:16 IRRITATION WITH TAPE morphine AdvReac Intermediate VOMITING - Verified 12/19/20 17:16 PT REQUESTS SHE NOT RECEIVE AGAIN Home Medications Medication Instructions Recorded Confirmed Type amlodipine 10 mg tablet 10 mg PO DAILY 05/15/19 12/19/20 History furosemide 20 mg tablet 20 mg PO DAILY PRN 05/15/19 12/19/20 History ibuprofen 200 mg capsule 200 mg PO Q6H PRN 05/15/19 12/19/20 History magnesium oxide 400 mg PO BID cap 05/15/19 12/19/20 History potassium chloride 10 mEq 10 meq PO BID 05/15/19 12/19/20 History capsule,extended release prednisone 5 mg tablet 5 mg PO DAILY 05/15/19 12/19/20 History ropinirole 0.5 mg tablet 0.5 mg PO BID PRN tab 05/15/19 12/19/20 History ropinirole 1 mg tablet 1 mg PO HS tab 05/15/19 12/19/20 History tramadol 50 mg tablet 50 mg PO Q6 PRN tab 05/15/19 12/19/20 History vitamins A,C,P-suzs-fdshbs 14,320 1 cap PO BID 05/15/19 12/19/20 History unit-226 mg-200 unit capsule gabapentin 100 mg capsule 100 mg PO TID #90 cap 03/11/20 12/19/20 Rx lactobacillus combination no.4 0 mmu cells PO DAILY 12/19/20 12/19/20 History [Probiotic] lisinopril-hydrochlorothiazide 1 tab PO DAILY 12/19/20 12/19/20 History metoprolol succinate 25 mg PO DAILY 12/19/20 12/19/20 History multivitamin 1 tab PO DAILY 12/19/20 12/19/20 History Patient History Medical History (Updated 12/20/20 @ 11:22 by RINA Darby) GERD (gastroesophageal reflux disease) H/O Clostridium difficile infection HTN (hypertension) HTN, goal below 140/80 Hx of squamous cell carcinoma Macular degeneration Osteoarthritis Restless legs syndrome (RLS) Surgical History H/O cervical spine surgery History of cataract surgery History of hysterectomy Status post Mohs surgery Status post total knee replacement, left Status post total knee replacement, right Family History Father Alcohol abuse Macular degeneration COPD (chronic obstructive pulmonary disease) Mother Rheumatic fever Son , 21 Suicide Social History Smoking Status: Never smoker Second Hand Exposure: No; Do You Dip or Chew Tobacco: No; Tobacco Cessation Education Requested by Patient: No Hx Alcohol Use: Yes Alcohol type: wine Alcohol Intake Frequency: 4 or More x per/Week Alcohol Intake Frequency Comment: 6-8 ounces of wine daily Hx Substance Use: No Preferred Language: Finnish Communication Ability: Effective Visual Impairment: No Limitations Hearing Ability: Normal Ceo [place] Required: No Beliefs That Will Affect Care: None marital status: Current Living Situation: Alone Current Living Situation Comment: 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 A+Ox3. HEENT: Normocephalic. Atraumatic. PERRL. EOMI. Conjunctiva and sclera clear. NECK: No carotid bruits. No JVD. Carotid upstrokes are brisk. Heart: RRR. S1 and S2 noted without murmur, rubs, gallops. PMI non displaced. Lungs: Clear to auscultation. No wheezes, rhonchi, rales. Abdomen: Normal bowel sounds. Soft. Nontender. No masses or organomegaly. No abdominal bruits. Extremities: Trace left lower extremity non pitting edema, +1 pitting right lower extremity edema. No clubbing or cyanosis. Pulses: radial=2/4, posterior tibial=2/4, dorsalis pedis = 2/4. NEURO: No focal deficits. PSYCH: Normal. Results & Data ([facility]) Vital Signs (Past 12 Hours) Vital Signs Temp Pulse Pulse Resp BP Pulse Ox Pulse Ox 12/20/20 08:34 36.6 C 57 L 16 182/78 H 96 12/20/20 03:17 36.6 C 50 L 18 134/69 96 12/19/20 23:32 36.4 C L 52 L 16 143/78 H 99 12/19/20 23:00 47 L 12/19/20 21:00 36.5 C 52 L 20 144/56 H 94 94 Laboratory Results 12/20/20 12/20/20 12/20/20 Range/Units 06:15 06:15 06:15 WBC 5.00 (4.8-10.8) K/uL RBC 3.66 L (4.2-5.4) M/uL Hgb 11.9 L (12.0-16.0) g/dL POC Hgb (12.0-16.0) g/dl Hct 35.5 L (37-47) % POC Hct (37-47) % MCV 97.0 (80-100) fL MCH 32.5 (25-34) pg MCHC 33.5 (32-36) g/dL RDW Std Deviation 48.9 H (36.4-46.3) fL RDW Coeff of Murta[place] 13.8 (11.5-14.5) % Plt Count 199 (130-400) K/uL MPV 10.3 (7.4-10.4) fL Immature Gran % (Auto) 0.2 % Neut % (Auto) 36.0 % Lymph % (Auto) 50.8 % [place] % (Auto) 8.6 % Eos % (Auto) 4.2 % Baso % (Auto) 0.2 % Neut # (Auto) 1.80 (1.4-6.5) K/uL Lymph # (Auto) 2.54 (1.2-3.4) K/uL [place] # (Auto) 0.43 (0.11-0.59) K/uL Eos # (Auto) 0.21 (0-0.5) K/uL Baso # (Auto) 0.01 (0-0.2) K/uL Immature Gran # (Auto) 0.01 (0.00-0.02) K/uL PT (9.0-12.0) Seconds INR (0.9-1.1) POC Sodium (135-144) mmol/L Sodium 138 (136-145) mmol/L POC Potassium (3.3-5.0) mmol/L Potassium 4.0 (3.5-5.1) mmol/L POC Chloride (101-112) mmol/L Chloride 108 H (98-107) mmol/L Carbon Dioxide 26 (21-32) mmol/L POC Total CO2 (24-31) mmol/L Anion Gap 4.0 (3-11) POC Anion Gap (16-25) mmol/L POC BUN (7-18) mg/dl BUN 45 H (7-18) mg/dl Creatinine 1.21 H D (0.6-1.2) mg/dl POC Creatinine (0.6-1.3) mg/dl Est Cr Clr Drug Dosing 35.5 ml/min Est GFR ( Amer) 47.9 Est GFR (Non-Af Amer) 41.3 BUN/Creatinine Ratio 37.1 H (10-20) Glucose 92 (70-99) mg/dl POC Glucose (other) (70-99) mg/dl Estimat Average Glucose Pending Hemoglobin A1c Pending Calcium 9.8 (8.5-10.1) mg/dl POC Ioniz Calcium Klaus (1.12-1.32) mmol/l Phosphorus 2.9 D (2.5-4.9) mg/dl Magnesium 1.9 (1.8-2.4) mg/dl Total Bilirubin 0.4 (0.2-1) mg/dl Direct Bilirubin (0-0.2) mg/dl AST 27 (15-37) U/L ALT 40 (12-78) U/L Alkaline Phosphatase 92 (45-117) U/L Total Creatine Kinase (26-192) U/L Troponin I (0-0.045) ng/ml Total Protein 5.9 L (6.4-8.2) gm/dl Albumin 2.9 L (3.4-5.0) gm/dl Globulin 2.9 (2.5-4.0) gm/dl Albumin/Globulin Ratio 1.0 (0.9-2) Lipase (73-393) U/L TSH (0.300-4.500) uIu/ml Urine Color Urine Appearance (Clear) Urine pH (4.5-7.5) Ur Specific [place] (1.000-1.030) Urine Protein (Negative) Urine Glucose (UA) (Negative) Urine Ketones (Negative) Urine Blood (Negative) Urine Nitrite (Negative) Urine Bilirubin (Negative) Urine Urobilinogen (Negative) Ur Leukocyte Esterase (Negative) Urine WBC (Auto) (0-5) /hpf Urine RBC (Auto) (0-4) /hpf U Hyaline Cast (Auto) (0-5) /lpf U Epithel Cells (Auto) (0-5) /lpf Urine Bacteria (Auto) (Negative) Urine Crystals (None Prsent) Lyme Disease IgG Ab (Negative) Lyme IgG (Western Blot) Lyme IgG 18 kDa Band Lyme IgG 23 kDa Band Lyme IgG 28 kDa Band Lyme IgG 30 kDa Band Lyme IgG 39 kDa Band Lyme IgG 41 kDa Band Lyme IgG 45 kDa Band Lyme IgG 58 kDa Band Lyme IgG 66 kDa Band Lyme IgG 93 kDa Band Lyme IgM Ab (WB) Lyme Disease IgM Ab (Negative) Lyme IgM 23 kDa Band Lyme IgM 39 kDa Band Lyme IgM 41 kDa Band COVID-19 Eval Order SARS-CoV-2 (PCR) (Negative) Influenza Type A (PCR) (Neg) Influenza Type B (PCR) (Neg) RSV (RT-PCR) (Neg) 12/19/20 12/19/20 12/19/20 Range/Units 22:02 19:39 16:47 WBC (4.8-10.8) K/uL RBC (4.2-5.4) M/uL Hgb (12.0-16.0) g/dL POC Hgb (12.0-16.0) g/dl Hct (37-47) % POC Hct (37-47) % MCV (80-100) fL MCH (25-34) pg MCHC (32-36) g/dL RDW Std Deviation (36.4-46.3) fL RDW Coeff of Murtaza (11.5-14.5) % Plt Count (130-400) K/uL MPV (7.4-10.4) fL Immature Gran % (Auto) % Neut % (Auto) % Lymph % (Auto) % [place] % (Auto) % Eos % (Auto) % Baso % (Auto) % Neut # (Auto) (1.4-6.5) K/uL Lymph # (Auto) (1.2-3.4) K/uL [place] # (Auto) (0.11-0.59) K/uL Eos # (Auto) (0-0.5) K/uL Baso # (Auto) (0-0.2) K/uL Immature Gran # (Auto) (0.00-0.02) K/uL PT (9.0-12.0) Seconds INR (0.9-1.1) POC Sodium (135-144) mmol/L Sodium 135 L 136 (136-145) mmol/L POC Potassium (3.3-5.0) mmol/L Potassium 4.3 4.6 D (3.5-5.1) mmol/L POC Chloride (101-112) mmol/L Chloride 103 103 (98-107) mmol/L Carbon Dioxide 26 26 (21-32) mmol/L POC Total CO2 (24-31) mmol/L Anion Gap 7.0 7.0 (3-11) POC Anion Gap (16-25) mmol/L POC BUN (7-18) mg/dl BUN 58 H 63 H (7-18) mg/dl Creatinine 1.93 H D 2.35 H D (0.6-1.2) mg/dl POC Creatinine (0.6-1.3) mg/dl Est Cr Clr Drug Dosing 22.5 18.4 ml/min Est GFR ( Amer) 27.2 21.5 Est GFR (Non-Af Amer) 23.5 18.5 BUN/Creatinine Ratio 30.1 H 26.7 H (10-20) Glucose 163 H 192 H (70-99) mg/dl POC Glucose (other) (70-99) mg/dl Estimat Average Glucose Hemoglobin A1c Calcium 9.6 9.7 (8.5-10.1) mg/dl POC Ioniz Calcium Klaus (1.12-1.32) mmol/l Phosphorus (2.5-4.9) mg/dl Magnesium (1.8-2.4) mg/dl Total Bilirubin (0.2-1) mg/dl Direct Bilirubin (0-0.2) mg/dl AST (15-37) U/L ALT (12-78) U/L Alkaline Phosphatase (45-117) U/L Total Creatine Kinase (26-192) U/L Troponin I (0-0.045) ng/ml Total Protein (6.4-8.2) gm/dl Albumin (3.4-5.0) gm/dl Globulin (2.5-4.0) gm/dl Albumin/Globulin Ratio (0.9-2) Lipase (73-393) U/L TSH (0.300-4.500) uIu/ml Urine Color Urine Appearance (Clear) Urine pH (4.5-7.5) Ur Specific [place] (1.000-1.030) Urine Protein (Negative) Urine Glucose (UA) (Negative) Urine Ketones (Negative) Urine Blood (Negative) Urine Nitrite (Negative) Urine Bilirubin (Negative) Urine Urobilinogen (Negative) Ur Leukocyte Esterase (Negative) Urine WBC (Auto) (0-5) /hpf Urine RBC (Auto) (0-4) /hpf U Hyaline Cast (Auto) (0-5) /lpf U Epithel Cells (Auto) (0-5) /lpf Urine Bacteria (Auto) (Negative) Urine Crystals (None Prsent) Lyme Disease IgG Ab (Negative) Lyme IgG (Western Blot) Lyme IgG 18 kDa Band Lyme IgG 23 kDa Band Lyme IgG 28 kDa Band Lyme IgG 30 kDa Band Lyme IgG 39 kDa Band Lyme IgG 41 kDa Band Lyme IgG 45 kDa Band Lyme IgG 58 kDa Band Lyme IgG 66 kDa Band Lyme IgG 93 kDa Band Lyme IgM Ab (WB) Lyme Disease IgM Ab (Negative) Lyme IgM 23 kDa Band Lyme IgM 39 kDa Band Lyme IgM 41 kDa Band COVID-19 Eval Order SARS-CoV-2 (PCR) NEGATIVE (Negative) Influenza Type A (PCR) Negative (Neg) Influenza Type B (PCR) Negative (Neg) RSV (RT-PCR) Negative (Neg) 12/19/20 12/19/20 12/19/20 Range/Units 16:47 16:44 16:43 WBC (4.8-10.8) K/uL RBC (4.2-5.4) M/uL Hgb (12.0-16.0) g/dL POC Hgb 12.2 (12.0-16.0) g/dl Hct (37-47) % POC Hct 36 L (37-47) % MCV (80-100) fL MCH (25-34) pg MCHC (32-36) g/dL RDW Std Deviation (36.4-46.3) fL RDW Coeff of Murta[place] (11.5-14.5) % Plt Count (130-400) K/uL MPV (7.4-10.4) fL Immature Gran % (Auto) % Neut % (Auto) % Lymph % (Auto) % [place] % (Auto) % Eos % (Auto) % Baso % (Auto) % Neut # (Auto) (1.4-6.5) K/uL Lymph # (Auto) (1.2-3.4) K/uL [place] # (Auto) (0.11-0.59) K/uL Eos # (Auto) (0-0.5) K/uL Baso # (Auto) (0-0.2) K/uL Immature Gran # (Auto) (0.00-0.02) K/uL PT (9.0-12.0) Seconds INR (0.9-1.1) POC Sodium 132 L (135-144) mmol/L Sodium (136-145) mmol/L POC Potassium 5.9 H (3.3-5.0) mmol/L Potassium (3.5-5.1) mmol/L POC Chloride 101 (101-112) mmol/L Chloride (98-107) mmol/L Carbon Dioxide (21-32) mmol/L POC Total CO2 24 (24-31) mmol/L Anion Gap (3-11) POC Anion Gap 14.0 L (16-25) mmol/L POC BUN 62 H (7-18) mg/dl BUN (7-18) mg/dl Creatinine (0.6-1.2) mg/dl POC Creatinine 3.2 H (0.6-1.3) mg/dl Est Cr Clr Drug Dosing ml/min Est GFR ( Amer) Est GFR (Non-Af Amer) BUN/Creatinine Ratio (10-20) Glucose (70-99) mg/dl POC Glucose (other) 153 H (70-99) mg/dl Estimat Average Glucose Hemoglobin A1c Calcium (8.5-10.1) mg/dl POC Ioniz Calcium Kl[place] 1.30 (1.12-1.32) mmol/l Phosphorus (2.5-4.9) mg/dl Magnesium (1.8-2.4) mg/dl Total Bilirubin (0.2-1) mg/dl Direct Bilirubin (0-0.2) mg/dl AST (15-37) U/L ALT (12-78) U/L Alkaline Phosphatase (45-117) U/L Total Creatine Kinase (26-192) U/L Troponin I (0-0.045) ng/ml Total Protein (6.4-8.2) gm/dl Albumin (3.4-5.0) gm/dl Globulin (2.5-4.0) gm/dl Albumin/Globulin Ratio (0.9-2) Lipase (73-393) U/L TSH (0.300-4.500) uIu/ml Urine Color Dark Yellow Urine Appearance Cloudy A (Clear) Urine pH 5.0 (4.5-7.5) Ur Specific [place] 1.022 (1.000-1.030) Urine Protein Trace H (Negative) Urine Glucose (UA) Negative (Negative) Urine Ketones Trace H (Negative) Urine Blood Negative (Negative) Urine Nitrite Negative (Negative) Urine Bilirubin Negative (Negative) Urine Urobilinogen Negative (Negative) Ur Leukocyte Esterase Negative (Negative) Urine WBC (Auto) 1-5 (0-5) /hpf Urine RBC (Auto) 5-10 H (0-4) /hpf U Hyaline Cast (Auto) 10-30 H (0-5) /lpf U Epithel Cells (Auto) 20-30 H (0-5) /lpf Urine Bacteria (Auto) Negative (Negative) Urine Crystals Calcium Oxalate A (None Prsent) Lyme Disease IgG Ab (Negative) Lyme IgG (Western Blot) Lyme IgG 18 kDa Band Lyme IgG 23 kDa Band Lyme IgG 28 kDa Band Lyme IgG 30 kDa Band Lyme IgG 39 kDa Band Lyme IgG 41 kDa Band Lyme IgG 45 kDa Band Lyme IgG 58 kDa Band Lyme IgG 66 kDa Band Lyme IgG 93 kDa Band Lyme IgM Ab (WB) Lyme Disease IgM Ab (Negative) Lyme IgM 23 kDa Band Lyme IgM 39 kDa Band Lyme IgM 41 kDa Band COVID-19 Eval Order CovFluRsv at [facility] SARS-CoV-2 (PCR) (Negative) Influenza Type A (PCR) (Neg) Influenza Type B (PCR) (Neg) RSV (RT-PCR) (Neg) 12/19/20 12/19/20 12/19/20 Range/Units 16:40 16:40 16:40 WBC (4.8-10.8) K/uL RBC (4.2-5.4) M/uL Hgb (12.0-16.0) g/dL POC Hgb (12.0-16.0) g/dl Hct (37-47) % POC Hct (37-47) % MCV (80-100) fL MCH (25-34) pg MCHC (32-36) g/dL RDW Std Deviation (36.4-46.3) fL RDW Coeff of [place] (11.5-14.5) % Plt Count (130-400) K/uL MPV (7.4-10.4) fL Immature Gran % (Auto) % Neut % (Auto) % Lymph % (Auto) % [place] % (Auto) % Eos % (Auto) % Baso % (Auto) % Neut # (Auto) (1.4-6.5) K/uL Lymph # (Auto) (1.2-3.4) K/uL [place] # (Auto) (0.11-0.59) K/uL Eos # (Auto) (0-0.5) K/uL Baso # (Auto) (0-0.2) K/uL Immature Gran # (Auto) (0.00-0.02) K/uL PT (9.0-12.0) Seconds INR (0.9-1.1) POC Sodium (135-144) mmol/L Sodium 134 L (136-145) mmol/L POC Potassium (3.3-5.0) mmol/L Potassium 5.9 H (3.5-5.1) mmol/L POC Chloride (101-112) mmol/L Chloride 103 (98-107) mmol/L Carbon Dioxide 24 (21-32) mmol/L POC Total CO2 (24-31) mmol/L Anion Gap 7.0 (3-11) POC Anion Gap (16-25) mmol/L POC BUN (7-18) mg/dl BUN 67 H (7-18) mg/dl Creatinine 2.79 H (0.6-1.2) mg/dl POC Creatinine (0.6-1.3) mg/dl Est Cr Clr Drug Dosing 15.5 ml/min Est GFR ( Amer) 17.5 Est GFR (Non-Af Amer) 15.1 BUN/Creatinine Ratio 24.0 H (10-20) Glucose 155 H (70-99) mg/dl POC Glucose (other) (70-99) mg/dl Estimat Average Glucose Hemoglobin A1c Calcium 9.6 (8.5-10.1) mg/dl POC Ioniz Calcium Kl[place] (1.12-1.32) mmol/l Phosphorus 5.1 H (2.5-4.9) mg/dl Magnesium 2.6 H (1.8-2.4) mg/dl Total Bilirubin 0.4 (0.2-1) mg/dl Direct Bilirubin 0.2 (0-0.2) mg/dl AST 30 (15-37) U/L ALT 42 (12-78) U/L Alkaline Phosphatase 106 (45-117) U/L Total Creatine Kinase 69 (26-192) U/L Troponin I < 0.015 (0-0.045) ng/ml Total Protein 7.1 (6.4-8.2) gm/dl Albumin 3.9 (3.4-5.0) gm/dl Globulin 3.2 (2.5-4.0) gm/dl Albumin/Globulin Ratio 1.2 (0.9-2) Lipase 260 (73-393) U/L TSH 1.410 (0.300-4.500) uIu/ml Urine Color Urine Appearance (Clear) Urine pH (4.5-7.5) Ur Specific [place] (1.000-1.030) Urine Protein (Negative) Urine Glucose (UA) (Negative) Urine Ketones (Negative) Urine Blood (Negative) Urine Nitrite (Negative) Urine Bilirubin (Negative) Urine Urobilinogen (Negative) Ur Leukocyte Esterase (Negative) Urine WBC (Auto) (0-5) /hpf Urine RBC (Auto) (0-4) /hpf U Hyaline Cast (Auto) (0-5) /lpf U Epithel Cells (Auto) (0-5) /lpf Urine Bacteria (Auto) (Negative) Urine Crystals (None Prsent) Lyme Disease IgG Ab Negative (Negative) Lyme IgG (Western Blot) Pending Lyme IgG 18 kDa Band Pending Lyme IgG 23 kDa Band Pending Lyme IgG 28 kDa Band Pending Lyme IgG 30 kDa Band Pending Lyme IgG 39 kDa Band Pending Lyme IgG 41 kDa Band Pending Lyme IgG 45 kDa Band Pending Lyme IgG 58 kDa Band Pending Lyme IgG 66 kDa Band Pending Lyme IgG 93 kDa Band Pending Lyme IgM Ab (WB) Pending Lyme Disease IgM Ab Positive A (Negative) Lyme IgM 23 kDa Band Pending Lyme IgM 39 kDa Band Pending Lyme IgM 41 kDa Band Pending COVID-19 Eval Order SARS-CoV-2 (PCR) (Negative) Influenza Type A (PCR) (Neg) Influenza Type B (PCR) (Neg) RSV (RT-PCR) (Neg) 12/19/20 12/19/20 Range/Units 16:40 16:40 WBC 7.56 (4.8-10.8) K/uL RBC 3.63 L (4.2-5.4) M/uL Hgb 12.0 (12.0-16.0) g/dL POC Hgb (12.0-16.0) g/dl Hct 34.9 L (37-47) % POC Hct (37-47) % MCV 96.1 (80-100) fL MCH 33.1 (25-34) pg MCHC 34.4 (32-36) g/dL RDW Std Deviation 49.0 H (36.4-46.3) fL RDW Coeff of [place] 13.9 (11.5-14.5) % Plt Count 256 (130-400) K/uL MPV 10.4 (7.4-10.4) fL Immature Gran % (Auto) 0.4 % Neut % (Auto) 61.4 % Lymph % (Auto) 28.3 % [place] % (Auto) 8.6 % Eos % (Auto) 1.2 % Baso % (Auto) 0.1 % Neut # (Auto) 4.64 (1.4-6.5) K/uL Lymph # (Auto) 2.14 (1.2-3.4) K/uL [place] # (Auto) 0.65 H (0.11-0.59) K/uL Eos # (Auto) 0.09 (0-0.5) K/uL Baso # (Auto) 0.01 (0-0.2) K/uL Immature Gran # (Auto) 0.03 H (0.00-0.02) K/uL PT 10.1 (9.0-12.0) Seconds INR 1.0 (0.9-1.1) POC Sodium (135-144) mmol/L Sodium (136-145) mmol/L POC Potassium (3.3-5.0) mmol/L Potassium (3.5-5.1) mmol/L POC Chloride (101-112) mmol/L Chloride (98-107) mmol/L Carbon Dioxide (21-32) mmol/L POC Total CO2 (24-31) mmol/L Anion Gap (3-11) POC Anion Gap (16-25) mmol/L POC BUN (7-18) mg/dl BUN (7-18) mg/dl Creatinine (0.6-1.2) mg/dl POC Creatinine (0.6-1.3) mg/dl Est Cr Clr Drug Dosing ml/min Est GFR ( Amer) Est GFR (Non-Af Amer) BUN/Creatinine Ratio (10-20) Glucose (70-99) mg/dl POC Glucose (other) (70-99) mg/dl Estimat Average Glucose Hemoglobin A1c Calcium (8.5-10.1) mg/dl POC Ioniz Calcium [place] (1.12-1.32) mmol/l Phosphorus (2.5-4.9) mg/dl Magnesium (1.8-2.4) mg/dl Total Bilirubin (0.2-1) mg/dl Direct Bilirubin (0-0.2) mg/dl AST (15-37) U/L ALT (12-78) U/L Alkaline Phosphatase (45-117) U/L Total Creatine Kinase (26-192) U/L Troponin I (0-0.045) ng/ml Total Protein (6.4-8.2) gm/dl Albumin (3.4-5.0) gm/dl Globulin (2.5-4.0) gm/dl Albumin/Globulin Ratio (0.9-2) Lipase (73-393) U/L TSH (0.300-4.500) uIu/ml Urine Color Urine Appearance (Clear) Urine pH (4.5-7.5) Ur Specific [place] (1.000-1.030) Urine Protein (Negative) Urine Glucose (UA) (Negative) Urine Ketones (Negative) Urine Blood (Negative) Urine Nitrite (Negative) Urine Bilirubin (Negative) Urine Urobilinogen (Negative) Ur Leukocyte Esterase (Negative) Urine WBC (Auto) (0-5) /hpf Urine RBC (Auto) (0-4) /hpf U Hyaline Cast (Auto) (0-5) /lpf U Epithel Cells (Auto) (0-5) /lpf Urine Bacteria (Auto) (Negative) Urine Crystals (None Prsent) Lyme Disease IgG Ab (Negative) Lyme IgG (Western Blot) Lyme IgG 18 kDa Band Lyme IgG 23 kDa Band Lyme IgG 28 kDa Band Lyme IgG 30 kDa Band Lyme IgG 39 kDa Band Lyme IgG 41 kDa Band Lyme IgG 45 kDa Band Lyme IgG 58 kDa Band Lyme IgG 66 kDa Band Lyme IgG 93 kDa Band Lyme IgM Ab (WB) Lyme Disease IgM Ab (Negative) Lyme IgM 23 kDa Band Lyme IgM 39 kDa Band Lyme IgM 41 kDa Band COVID-19 Eval Order SARS-CoV-2 (PCR) (Negative) Influenza Type A (PCR) (Neg) Influenza Type B (PCR) (Neg) RSV (RT-PCR) (Neg)
[2020-12-20 09:04] LABS: Estimated Average Glucose 120 mg/dl; Hemoglobin A1C 5.8 % (4.5-5.6)
[2020-12-20] MEDS: SODIUM CHLORIDE 0.9% 1000ML 1,000 ML IV SCH ×2 (10:03→10:24)
--- NOTE | 2020-12-20 10:32 | Consultation Report ---
DATE OF CONSULTATION: 12/20/2020 REASON FOR CONSULT: Acute renal failure with hyperkalemia and hypermagnesemia. HISTORY OF PRESENT ILLNESS: The patient is an 85-year-old female who presented to the hospital yesterday because of decreased urination for the last few days. She was found to have acute renal failure with a creatinine of 2.79 significantly higher than her baseline of 0.9 just a month ago, also had a potassium of 5.9 and high magnesium. She was also complaining of increasing fatigue, weakness, decreased urination and decreased oral intake with decreased appetite for the last few days, but there was no nausea, vomiting or fever or chills or other symptoms. In the emergency when she first presented, she had a heart rate in the mid 30s with somewhat low blood pressure of around 90 systolic. She was given IV fluid. Wasserman catheter was placed and about 150 mL of urine was noted. Overnight hyperkalemia management was done and with that potassium is completely normal this morning, even the renal function has completely normalized and is down to a creatinine of 1.21. Her most recent heart rate was 57 and on the EKG this morning, she had significant sinus bradycardia with a heart rate in the 50s. She feels stronger this morning than yesterday. She has a Wasserman catheter and there is a good bit of urine at this time. She was on lisinopril, hydrochlorothiazide and metoprolol as an outpatient and all 3 medications are currently on hold. Her blood pressure is slightly high at 182 this morning. ALLERGY: List was reviewed and is as per the reconciliation list. HOME MEDICATIONS: List was reviewed and includes amlodipine, furosemide, potassium chloride, ibuprofen, magnesium oxide, prednisone, Requip, lisinopril, hydrochlorothiazide and metoprolol. PAST MEDICAL AND SURGICAL HISTORY: Hypertension, history of squamous cell carcinoma, macular degeneration, osteoarthritis, restless leg syndrome, hypertension. PAST SURGICAL HISTORY: Cervical spine, cataracts, hysterectomy, Mohs surgery, total knee replacement. FAMILY HISTORY: Negative for renal disease or dialysis. SOCIAL HISTORY: No smoking, no alcohol. She lives alone. REVIEW OF SYSTEMS: As detailed in HPI. The positive review of system included decreased urination for the last few days, poor appetite, weakness, fatigue. Otherwise, 12 systems reviewed and negative. PHYSICAL EXAMINATION: GENERAL: Elderly white female who appears to be quite comfortable at this time. She was in fact talking with her family on the phone. No respiratory distress. Normal speech. Awake, alert, oriented x3. HEENT: Mucous membrane moist. NECK: Supple. No jugular venous distention. CHEST: Bilateral clear to auscultation. CARDIOVASCULAR: S1, S2, bradycardic. EXTREMITIES: Shows chronic venous stasis changes with skin discoloration, but did not notice any significant edema at this time. ABDOMEN: Soft, nontender. SKIN: Noted to have skin discoloration from chronic edema. GENITOURINARY: Costovertebral angle tenderness absent. She has a clear looking urine in the Wasserman bag. VITAL SIGNS: Blood pressure 182/78, pulse rate 57, temperature 36.6, 96% on room air. LABORATORY TESTS: She had CT abdomen and pelvis yesterday. Kidneys looked unremarkable without any hydronephrosis. Renal ultrasound was also done, which did not show any abnormality. Creatinine was 2.79 at the time of admission, this morning is down to 1.21, potassium was 5.9, this morning is normal at 4.0. Otherwise, electrolytes fairly normal at this time. Magnesium was 2.6 yesterday, it is 1.9 this morning. ASSESSMENT AND PLAN: An 85-year-old female who presented with decreased urination, symptomatic bradycardia with hypotension and associated acute renal failure and hyperkalemia and hypermagnesemia. 1. Acute renal failure. This was prerenal in type secondary to bradycardia. I believe the bradycardia is the primary trigger and acute renal failure is the result of that. She was on multiple medications, which affects the renal hemodynamics, which triggered the acute renal failure. Renal function has almost normalized in a very short period of time. I do not think we need to give her any more fluids. Her blood pressure is already running a little high at 182. Continue to hold Lasix, lisinopril, hydrochlorothiazide, magnesium and potassium supplement that she was getting at home. As long as the heart rate remains stable, I expect renal function to continue to get better. No further workup is needed for acute renal failure. 2. Bradycardia. This seems to be the primary trigger of her symptomatology and lab abnormalities. Defer to Cardiology. Blood pressure is running high, but given the bradycardia situation, defer to Cardiology for further management.
[2020-12-20] MEDS: lisinopril 20 MG TAB PO SCH (11:21)
[2020-12-20] MEDS: amLODIPine BESYLATE 5 MG TAB PO SCH (11:21)
[2020-12-20] MEDS ORDERED: rOPINIRole HCL 0.25 MG TABLET PO ONE (12:45)
--- NOTE | 2020-12-20 12:47 | Electrocardiogram Report ---
Test Reason : Blood Pressure : / mmHG Vent. Rate : 035 BPM Atrial Rate : 035 BPM P-R Int : 000 ms QRS Dur : 088 ms QT Int : 468 ms P-R-T Axes : 042 058 044 degrees QTc Int : 357 ms Sinus bradycardia with complete heart block with junctional escape Abnormal ECG When compared with ECG of 07-APR-2017 06:25, Significant changes have occurred Confirmed by Connor Valdovinos ([id number]) on 12/20/2020 12:46:57 PM Referred By: Kayce Hansen Confirmed By:Connor Valdovinos
--- NOTE | 2020-12-20 12:52 | Electrocardiogram Report ---
Test Reason : Blood Pressure : / mmHG Vent. Rate : 052 BPM Atrial Rate : 052 BPM P-R Int : 202 ms QRS Dur : 092 ms QT Int : 422 ms P-R-T Axes : 073 063 040 degrees QTc Int : 392 ms Poor data quality, interpretation may be adversely affected Sinus bradycardia with 1st degree A-V block Otherwise Normal ECG When compared with ECG of 19-DEC-2020 16:26, (unconfirmed) Significant changes have occurred Confirmed by Connor Valdovinos ([id number]) on 12/20/2020 12:52:22 PM Referred By: Kayce Hansen Confirmed By:Connor Valdovinos
--- NOTE | 2020-12-20 13:29 | Electrocardiogram Report ---
Test Reason : Blood Pressure : / mmHG Vent. Rate : 052 BPM Atrial Rate : 052 BPM P-R Int : 196 ms QRS Dur : 102 ms QT Int : 438 ms P-R-T Axes : 035 057 044 degrees QTc Int : 407 ms Sinus bradycardia with marked sinus arrhythmia Otherwise normal ECG When compared with ECG of 19-DEC-2020 17:56, (unconfirmed) No significant change was found Confirmed by Connor Valdovinos ([id number]) on 12/20/2020 1:29:17 PM Referred By: Kayce Hansen Confirmed By:Connor Valdovinos
[2020-12-20] MEDS ORDERED: ADVANCED PROBIOTIC 1250 MG CAPSULE PO ONE (13:45)
[2020-12-20] MEDS: cefTRIAXone SODIUM 2,000 MG in DEXTROSE 5% 50 ML IV SCH (17:20)
[2020-12-20 19:22] LABS: BUN Creatinine Ratio 27.3 (10-20); Calcium 9.3 mg/dl (8.5-10.1); Est GFR (African American) 52.1; Est GFR (Non-African American) 44.9; Potassium 3.9 mmol/L (3.5-5.1)
[2020-12-20] MEDS: rOPINIRole HCL 1 MG TABLET PO SCH (20:30)
[2020-12-20] MEDS ORDERED: hydrALAZINE HCL 25 MG TAB PO PRN (22:26)
[2020-12-21] MEDS ORDERED: traMADol HCL 50 MG TABLET PO STA (01:49)
[2020-12-21] MEDS: HEPARIN SOD 5,000 UNIT/0.5 ML VIAL SQ SCH ×2 (06:11→14:54)
[2020-12-21 07:29] LABS: Hematocrit (blood only) 35.3 % (37-47); Hemoglobin 12.2 g/dL (12.0-16.0); Mean Corpuscular Hemoglobin 33.3 pg (25-34); Mean Corpuscular Hgb Conc 34.6 g/dL (32-36); Mean Corpuscular Volume 96.4 fL (80-100); Mean Platelet Volume 10.1 fL (7.4-10.4); Platelet Count 217 K/uL (130-400); RDW Coefficient of Variation 13.5 % (11.5-14.5); RDW Standard Deviation 47.7 fL (36.4-46.3); Red Blood Count 3.66 M/uL (4.2-5.4); White Blood Count 4.67 K/uL (4.8-10.8)
[2020-12-21] MEDS ORDERED: rOPINIRole HCL 0.25 MG TABLET PO PRN (07:41)
--- NOTE | 2020-12-21 07:49 | Hospitalist Progress Note ---
Date of Service December 21, 2020 Assessment & Plan (1) HERMAN (acute kidney injury): (2) Bradycardia: (3) Positive Lyme disease serology: (4) Hyperkalemia: (5) Hypermagnesemia: Lyme carditis This is a 85-year-old female who has significant past medical history of hypertension, macular degeneration, osteopenia, osteoarthritis who presents to ED secondary to decreased urination x2 to 3 days. Patient presents with renal failure, BUN 67, creatinine 2.79, last creatinine 0.9 on 11/11/2020. Evidence of hyperkalemia and hypermagnesemia likely in setting of HERMAN along with taking daily supplementation. She received treatment for hyperkalemia with calcium gluconate, regular insulin, D50 and patriomer. She has also received gentle IV hydration while in ER. No known tick bite, but initial Lyme serology positive for IgM antibody. 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 Normal LV systolic function, EF 60 to 65%. No segmental left ventricular wall motion anomalies are noted. Grade 2 diastolic dysfunction. Aortic valve sclerosis mild, without significant aortic valvular stenosis. Mild mitral regurgitation. Mild tricuspid regurgitation. External pacer pads at bedside initially 2 g IV Rocephin, await Western blot Hold metoprolol in setting of bradycardia Obtain renal ultrasound - no solid renal masses identified. No evidence of hydronephrosis. Consult nephrology secondary to HERMAN Wasserman catheter is now removed, patient has good urine output, creatinine back to baseline. HERMAN secondary to bradycardia, now resolved Heart rate improved, ECG repeat normal sinus rhythm, with sinus arrhythmia, heart rate 67, WI interval 180 Continued IV ceftriaxone while inpatient, Discussed with cardiology, will transfer to p.o. doxycycline on discharge Hypokalemia and hypomagnesemia also resolved, now potassium is actually on the lower side as well as magnesium, continue home supplements on discharge, will replete while inpatient Follow-up BMP and magnesium level recommended as outpatient (6) HTN (hypertension): On metoprolol, lisinopril/HCTZ and amlodipine as outpatient Held all initially in setting of hypotension and HERMAN on admission Restart amlodipine and lisinopril Hydralazine as needed Do not recommend HCTZ on discharge (7) Osteoarthritis: Continue daily prednisone (8) Macular degeneration: States recently lost drivers license secondary to visual loss (9) Restless legs syndrome (RLS): Continue Requip (10) DVT prophylaxis: SQ Heparin Dispo:PCU PCP: Dr. Hansen FULL CODE Admission and Anticipated Discharge Date Admission Date: December 19, 2020 Subjective Patient seen in follow-up of HERMAN, bradycardia, in the setting of Lyme carditis Currently electrolytes improved, creatinine improved, also heart rate improved Patient overall feels better today, specifically denies any chest pain, shortnes s of breath, abdominal pain Urine output much improved Patient is eager to be discharged. Review of Systems Review of Systems: All systems reviewed & are unremarkable except as noted in HPI & below Constitutional: no fever and no chills Respiratory: no cough and no dyspnea Cardiovascular: no chest pain and no palpitations Gastrointestinal: no abdominal pain, no nausea and no vomiting Physical Exam Physical Exam: Constitutional: WD/WN, elderly, female, in NAD, sitting up in bed, pleasant, conversing easily Head: Normocephalic, Atraumatic Eyes: PERRL, EOMI, conjunctivae normal, anicteric sclerae ENMT: external ear and nose normal, oropharynx normal Neck: trachea midline, no thyromegaly normal visual inspection Respiratory: normal respiratory effort, lungs clear to auscultation, no wheeze, rales, rhonchi. Normal insp/exp effort, no accessory muscle use Cardiovascular: RRR, no murmur, trace b/l lower extremity venous stasis changes Chest: normal inspection of chest , external pacer pads on anterior chest wall Abdomen: normal bowel sounds, soft, nontender Musculoskeletal: no cyanosis or clubbing, extremities motor strength 5/5, moves extremities Skin: no rashes, warm and dry normal turgor Neurologic: PERRL, EOMI,no face palsy, no dysarthria, speech fluent, moves all extremities Psychiatric: A+Ox3, euthymic affect Results & Data Results & Data ([facility]) Vital Signs (Past 12 Hours) Vital Signs Temp Pulse Pulse Resp BP Pulse Ox Pulse Ox 12/21/20 07:40 64 12/21/20 07:00 36.7 C 65 18 149/76 H 96 12/21/20 03:55 36.7 C 71 16 158/71 H 98 12/20/20 22:56 36.7 C 77 20 182/79 H 97 12/20/20 21:00 70 98 Laboratory Results 12/21/20 12/21/20 12/20/20 Range/Units 07:15 07:15 18:46 WBC 4.67 L (4.8-10.8) K/uL RBC 3.66 L (4.2-5.4) M/uL Hgb 12.2 (12.0-16.0) g/dL Hct 35.3 L (37-47) % MCV 96.4 (80-100) fL MCH 33.3 (25-34) pg MCHC 34.6 (32-36) g/dL RDW Std Deviation 47.7 H (36.4-46.3) fL RDW Coeff of Murtaza 13.5 (11.5-14.5) % Plt Count 217 (130-400) K/uL MPV 10.1 (7.4-10.4) fL Sodium 139 138 (136-145) mmol/L Potassium 3.4 L 3.9 (3.5-5.1) mmol/L Chloride 106 106 (98-107) mmol/L Carbon Dioxide 30 27 (21-32) mmol/L Anion Gap 3.0 5.0 (3-11) BUN 18 31 H (7-18) mg/dl Creatinine 0.71 D 1.13 (0.6-1.2) mg/dl Est Cr Clr Drug Dosing 61.1 38.0 ml/min Est GFR ( Amer) 91.3 52.1 Est GFR (Non-Af Amer) 78.8 44.9 BUN/Creatinine Ratio 25.1 H 27.3 H (10-20) Glucose 95 131 H (70-99) mg/dl Calcium 9.6 9.3 (8.5-10.1) mg/dl Phosphorus 2.4 L (2.5-4.9) mg/dl Magnesium 1.4 L (1.8-2.4) mg/dl Medications Administered Current Inpatient Medications Acetaminophen (Acetaminophen 325 Mg Tab) 650 mg PO Q4H PRN PRN Reason: Pain or Fever Stop: 01/18/21 20:59 Amlodipine Besylate (Amlodipine Besylate 5 Mg Tab) [facility] Stop: 01/19/21 10:59 Last Admin: 12/21/20 08:35 Dose: 10 mg Documented by: Heparin Sodium (Porcine) (Heparin Sod 5,000 Unit/0.5 Ml Vial) 5,000 units SQ Q8 [facility] Stop: 01/18/21 21:59 Last Admin: 12/21/20 06:11 Dose: Not Given Documented by: Hydralazine HCl (Hydralazine Hcl 25 Mg Tab) 25 mg PO Q4H PRN PRN Reason: hypertension, SBP >170 Stop: 01/19/21 22:25 Last Admin: 12/21/20 01:26 Dose: 25 mg Documented by: Ceftriaxone Sodium 2,000 mg/ (Dextrose) 50 mls @ 100 mls/hr IV Q24H [facility]; Protocol Stop: 12/30/20 17:59 Last Infusion: 12/20/20 18:18 Dose: Infused Documented by: Magnesium Sulfate/Dextrose (Magnesium Sulfate / D5w) 1 gm in 100 mls @ 50 mls/hr IV Q2H STA Stop: 12/21/20 16:19 Lactobacillus Acidoph/Casei/Rhamnos (Advanced Probiotic 1250 Mg Capsule) 2 cap PO DAILY CAS Stop: 01/20/21 08:59 Last Admin: 12/21/20 08:36 Dose: 2 cap Documented by: Lisinopril (Lisinopril 20 Mg Tab) 20 mg PO QAM [facility] Stop: 01/19/21 10:59 Last Admin: 12/21/20 09:00 Dose: 20 mg Documented by: Ondansetron HCl (Ondansetron Inj 2 Mg/Ml 2 Ml Vial) 4 mg IV Q6H PRN PRN Reason: Nausea Stop: 01/18/21 20:59 Polyethylene Glycol (Polyethylene (Miralax) 17 Gm Pack) 17 gm PO DAILY PRN PRN Reason: Constipation Stop: 01/18/21 20:59 Potassium Chloride (Potassium Chloride Crtab 20 Meq Tabcr) 40 meq PO NOW STA Stop: 12/21/20 14:19 Prednisone (Prednisone 5 Mg Tab) 5 mg PO DAILY CAS Stop: 01/19/21 08:59 Last Admin: 12/21/20 08:35 Dose: 5 mg Documented by: Ropinirole HCl (Ropinirole Hcl 1 Mg Tablet) 1 mg PO HS CAS Stop: 01/18/21 20:59 Last Admin: 12/20/20 20:30 Dose: 1 mg Documented by: Ropinirole HCl (Ropinirole Hcl 0.25 Mg Tablet) 0.25 mg PO BID PRN PRN Reason: leg cramps Stop: 01/20/21 08:59
[2020-12-21 07:53] LABS: BUN Creatinine Ratio 25.1 (10-20); Calcium 9.6 mg/dl (8.5-10.1); Creatinine Clr Calc Pharmacy 61.1 ml/min; Est GFR (African American) 91.3; Est GFR (Non-African American) 78.8; Magnesium 1.4 mg/dl (1.8-2.4); Phosphorus 2.4 mg/dl (2.5-4.9); Potassium 3.4 mmol/L (3.5-5.1)
[2020-12-21] MEDS: amLODIPine BESYLATE 5 MG TAB PO SCH (08:35)
[2020-12-21] MEDS: predniSONE 5 MG TAB PO SCH (08:35)
[2020-12-21] MEDS: lisinopril 20 MG TAB PO SCH (09:00)
[2020-12-21] MEDS ORDERED: ADVANCED PROBIOTIC 1250 MG CAPSULE PO SCH (09:00)
--- NOTE | 2020-12-21 10:38 | Cardiology Progress Note ---
Date of Service December 21, 2020 Assessment & Plan (1) Symptomatic bradycardia: The patient has no significant arrhythmias or bradycardia after starting antibiotics for Lyme's disease. (2) HERMAN (acute kidney injury): Renal function appears to be back to baseline. Will DC Wasserman catheter. (3) Positive Lyme disease serology: Patient being treated with appropriate antibiotics. Admission and Anticipated Discharge Date Admission Date: December 19, 2020 Subjective No ongoing complaints and feels well today. Review of Systems Review of Systems: All systems reviewed & are unremarkable except as noted in HPI & below Nothing additional to add. Physical Exam Physical Exam: General: no acute distress and stated age Head: normocephalic, no masses, lesions, tenderness or abnormalities Eyes: conjunctiva are pink and non-injected, sclera clear Neck: supple, no adenopathy, no bruits, normal jugular venous pulse, no hepatojugular reflux Chest: normal shape and normal respiratory effort Lungs: clear to auscultation and percussion Cardiac Exam: - regular rate & rhythm, no murmurs gallops or rubs - normal S1, normal S2 Pulses: 2(+) throughout Abdomen: abdomen soft, non-tender, no abnormal masses and no hepatosplenomegaly Musculoskeletal: no gait disturbance, no joint inflammation, no deforming arthritis Extremities: no edema and no cyanosis Neuro: grossly normal exam Results & Data ([facility]) Vital Signs (Past 12 Hours) Vital Signs Temp Pulse Pulse Resp BP Pulse Ox 12/21/20 07:40 64 12/21/20 07:00 36.7 C 65 18 149/76 H 96 12/21/20 03:55 36.7 C 71 16 158/71 H 98 12/20/20 22:56 36.7 C 77 20 182/79 H 97 Laboratory Results Laboratory Results - last 24 hr 12/20/20 12/21/20 12/21/20 18:46 07:15 07:15 WBC 4.67 L RBC 3.66 L Hgb 12.2 Hct 35.3 L MCV 96.4 MCH 33.3 MCHC 34.6 RDW Std Deviation 47.7 H RDW Coeff of Murtaza 13.5 Plt Count 217 MPV 10.1 Sodium 138 139 Potassium 3.9 3.4 L Chloride 106 106 Carbon Dioxide 27 30 Anion Gap 5.0 3.0 BUN 31 H 18 Creatinine 1.13 0.71 D Est Cr Clr Drug Dosing 38.0 61.1 Est GFR ( Amer) 52.1 91.3 Est GFR (Non-Af Amer) 44.9 78.8 BUN/Creatinine Ratio 27.3 H 25.1 H Glucose 131 H 95 Calcium 9.3 9.6 Phosphorus 2.4 L Magnesium 1.4 L Medications Administered Current Inpatient Medications Acetaminophen (Acetaminophen 325 Mg Tab) 650 mg PO Q4H PRN PRN Reason: Pain or Fever Stop: 01/18/21 20:59 Amlodipine Besylate (Amlodipine Besylate 5 Mg Tab) 10 mg PO QAM [facility] Stop: 01/19/21 10:59 Last Admin: 12/21/20 08:35 Dose: 10 mg Documented by: Heparin Sodium (Porcine) (Heparin Sod 5,000 Unit/0.5 Ml Vial) 5,000 units SQ Q8 [facility] Stop: 01/18/21 21:59 Last Admin: 12/21/20 06:11 Dose: Not Given Documented by: Hydralazine HCl (Hydralazine Hcl 25 Mg Tab) 25 mg PO Q4H PRN PRN Reason: hypertension, SBP >170 Stop: 01/19/21 22:25 Last Admin: 12/21/20 01:26 Dose: 25 mg Documented by: Ceftriaxone Sodium 2,000 mg/ (Dextrose) 50 mls @ 100 mls/hr IV Q24H [facility]; Protocol Stop: 12/30/20 17:59 Last Infusion: 12/20/20 18:18 Dose: Infused Documented by: Lactobacillus Acidoph/Casei/Rhamnos (Advanced Probiotic 1250 Mg Capsule) 2 cap PO DAILY [facility] Stop: 01/20/21 08:59 Last Admin: 12/21/20 08:36 Dose: 2 cap Documented by: Lisinopril (Lisinopril 20 Mg Tab) 20 mg PO QAM [facility] Stop: 01/19/21 10:59 Last Admin: 12/21/20 09:00 Dose: 20 mg Documented by: Ondansetron HCl (Ondansetron Inj 2 Mg/Ml 2 Ml Vial) 4 mg IV Q6H PRN PRN Reason: Nausea Stop: 01/18/21 20:59 Polyethylene Glycol (Polyethylene (Miralax) 17 Gm Pack) 17 gm PO DAILY PRN PRN Reason: Constipation Stop: 01/18/21 20:59 Prednisone (Prednisone 5 Mg Tab) 5 mg PO DAILY [facility] Stop: 01/19/21 08:59 Last Admin: 12/21/20 08:35 Dose: 5 mg Documented by: Ropinirole HCl (Ropinirole Hcl 1 Mg Tablet) 1 mg PO HS [facility] Stop: 01/18/21 20:59 Last Admin: 12/20/20 20:30 Dose: 1 mg Documented by: Ropinirole HCl (Ropinirole Hcl 0.25 Mg Tablet) 0.25 mg PO BID PRN PRN Reason: leg cramps Stop: 01/20/21 08:59
[2020-12-21] MEDS ORDERED: POTASSIUM CHLORIDE CRTAB 20 MEQ TABCR PO ONE (14:45)
[2020-12-21] MEDS: MAGNESIUM SULFATE / D5W 1 GM/100 ML BAG IV SCH ×2 (14:51→16:11)
--- NOTE | 2020-12-21 14:57 | Discharge Summary ---
Date of Service December 21, 2020 Admission HPI Per Admitting Provider This is a 85-year-old female who has significant past medical history of hypertension, macular degeneration, osteopenia, osteoarthritis who presents to ED secondary to decreased urination x2 to 3 days. Friend is at bedside. She was supposed to be on her way to [place]. Over the last few days she has noted to be more fatigued, weak and sleeping more. She also complains of decreased appetite and overall decreased intake. She further noticed that with decreased intake she had significantly decrease in urinary output. She not urinated in 24 hours. She had difficulty standing requiring her to lean on objects and felt off balance. "Did not feel like herself." She denies any recent fever, chills, sweats, nausea, lightheadedness, dizziness, syncope, vomiting, diarrhea. She further denies any chest pain, palpitations, cough, melena or hematochezia. She occasionally gets lower abdominal pain when she eats. She also complains of occasional difficulty swallowing With certain foods and occasional liquids.she has never had this evaluated in past with endoscopy and states she just uses extra water to, "wash it down." She denies any rash, known tick bite or arthralgias. She does have osteoarthritis as well as chronic neck and low back pain on chronic prednisone therapy, but feels this is at baseline. She notes her dog did have a tick 2 weeks ago. She is completely vaccinated for COVID-19. She denies any prior history of Lyme's disease. In ED patient systolic blood pressure was initially in the 90s and heart rate in 30s per initial EKG. Initial lab work-up revealed new onset HERMAN with BUN 67, creatinine 2.79, hyperkalemia 5.9, hyponatremia 134, elevated magnesium 2.6, elevated phosphorus 5.1, glucose 155. Her TSH and LFTs were unremarkable. Urinalysis consistent with ketones and epithelial cells but no acute infection. Initial Lyme screen IgM positive. CT abdomen pelvis revealed no evidence of bowel obstruction or renal, ureteral or bladder calculi. No evidence of hydronephrosis. In ED she received 2 g IV calcium gluconate, 10 units regular insulin, D50, IV fluid, bicarb and 2 g IV Rocephin. Repeat EKG revealed a sinus bradycardia with heart rate in the 50s and no evidence of heart block. Admission Exam Per Admitting Provider Constitutional: WD/WN, elderly, female, vitals as above, NAD, sitting up in bed, pleasant, conversing easily Head: Normocephalic, Atraumatic Eyes: PERRL, conjunctivae normal, anicteric sclerae ENMT: external ear and nose normal, oropharynx normal Neck: trachea midline, no thyromegaly normal visual inspection Respiratory: normal respiratory effort, lungs clear to auscultation, no wheeze, rales, rhonchi. Normal insp/exp effort, no accessory muscle use Cardiovascular: Bradycardic rate, regular rhythm, no murmur, bilateral lower extremity venous stasis changes, small skin tear to anterior pretibial surface on right lower extremity, trace to +1 lower extremity edema Vessels: no JVD or carotid bruit Chest: normal inspection of chest , external pacer pads on anterior chest wall Abdomen: normal bowel sounds, soft, nontender, no hepatosplenomegaly Musculoskeletal: no cyanosis or clubbing, extremities motor strength 5/5 Skin: no rashes, warm and dry normal turgor Neurologic: PERRL, EOMI, accommodation nl, no face palsy, no dysarthria CN's II-XI intact bilaterally and moves all extremities Psychiatric: A+Ox3, euthymic affect Lymphatic: no cervical or axillary lymphadenopathy : Wasserman catheter in place with 800 mL of yellow urine in Wasserman bag Principal Diagnosis Acute renal failure, hyperkalemia, hypomagnesemia 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 Normal insp/exp effort, no accessory muscle use Cardiovascular: RRR, no murmur, trace b/l lower extremity venous stasis changes Chest: normal inspection of chest , external pacer pads on anterior chest wall Abdomen: normal bowel sounds, soft, nontender Musculoskeletal: no cyanosis or clubbing, extremities motor strength 5/5, moves extremities Skin: no rashes, warm and dry normal turgor Neurologic: PERRL, EOMI,no face palsy, no dysarthria, speech fluent, moves all extremities Psychiatric: A+Ox3, euthymic affect Discharge Data Allergies Allergy/AdvReac Type Severity Reaction Status Date / Time adhesive Allergy Unknown RED, Verified 12/19/20 17:16 IRRITATION WITH TAPE morphine AdvReac Intermediate VOMITING - Verified 12/19/20 17:16 PT REQUESTS SHE NOT RECEIVE AGAIN Consultations 12/19/20 18:39 ED Decision to Admit Stat 12/19/20 19:33 Consult Cardiology Routine 12/19/20 21:00 Consult Nephrology Routine Ordered Studies 12/19/20 16:58 CT abd pelvis wo con Stat IMPRESSION: 1. No evidence of bowel obstruction. No evidence of free air 2. No evidence of acute appendicitis. No evidence of acute diverticulitis 3. No renal, ureteral, or bladder calculi identified. No evidence of hydronephrosis. 12/19/20 21:00 US renal/blad retro comp Urgent IMPRESSION : 1. No solid renal masses identified 2. No evidence of hydronephrosis Hospital Course (1) HERMAN (acute kidney injury): (2) Bradycardia: (3) Positive Lyme disease serology: (4) Hyperkalemia: (5) Hypermagnesemia: Lyme carditis This is a 85-year-old female who has significant past medical history of hypertension, macular degeneration, osteopenia, osteoarthritis who presents to ED secondary to decreased urination x2 to 3 days. Patient presents with renal failure, BUN 67, creatinine 2.79, last creatinine 0.9 on 11/11/2020. Evidence of hyperkalemia and hypermagnesemia likely in setting of HERMAN along with taking daily supplementation. She received treatment for hyperkalemia with calcium gluconate, regular insulin, D50 and patriomer. She has also received gentle IV hydration while in ER. No known tick bite, but initial Lyme serology positive for IgM antibody. 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 Consult cardiology due to possible Lyme carditis Echocardiogram -normal LV chamber size with mild concentric LVH, sigmoid gonzalo earing septum. Normal LV systolic function, EF 60 to 65%. No segmental left ventricular wall motion anomalies are noted. Grade 2 diastolic dysfunction. Aortic valve sclerosis mild, without significant aortic valvular stenosis. Mild mitral regurgitation. Mild tricuspid regurgitation. External pacer pads at bedside initially 2 g IV Rocephin, await Western blot Hold metoprolol in setting of bradycardia Obtain renal ultrasound - no solid renal masses identified. No evidence of hydronephrosis. Consult nephrology secondary to HERMAN Wasserman catheter is now removed, patient has good urine output, creatinine back to baseline. HERMAN secondary to bradycardia, now resolved Heart rate improved, ECG repeat normal sinus rhythm, with sinus arrhythmia, heart rate 67, OH interval 180 Continued IV ceftriaxone while inpatient, Discussed with cardiology, will transfer to p.o. doxycycline on discharge Hypokalemia and hypomagnesemia also resolved, now potassium is actually on the lower side as well as magnesium, continue home supplements on discharge, will replete while inpatient Follow-up BMP and magnesium level recommended as outpatient (6) HTN (hypertension): On metoprolol, lisinopril/HCTZ and amlodipine as outpatient Held all initially in setting of hypotension and HERMAN on admission Restart amlodipine and lisinopril Hydralazine as needed Do not recommend HCTZ on discharge (7) Osteoarthritis: Continue daily prednisone (8) Macular degeneration: States recently lost drivers license secondary to visual loss (9) Restless legs syndrome (RLS): Continue Requip (10) DVT prophylaxis: SQ Heparin PCP: Dr. 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 Take doxycycline twice a day, as prescribed for next 12 days. Recommend taking probiotics, while you are on antibiotics. Do not take metoprolol, as it can slow down your heart rate. Your heart rate needs to be checked by a doctor before you restart this medication. Do not take lisinopril/HCTZ for your blood pressure, only take lisinopril. P rescription for lisinopril was sent to your pharmacy. Recommend to monitor your blood pressure at home, and record these numbers. Make sure to provide these numbers to your primary care doctor, so your medications can be further adjusted. Pending Studies at Discharge: Yes Studies:: Final Lyme panel Stand-Alone Forms: [facility], Smoking Cessation Medications and DC Order Prescriptions: New lisinopril 20 mg Tablet 20 mg PO QAM Qty: 20 RF: 0 doxycycline hyclate 100 mg tablet 100 mg PO BID 12 Days Qty: 24 RF: 0 Continued tramadol 50 mg tablet 50 mg PO Q6 PRN (Reason: pain) RF: 0 prednisone 5 mg tablet 5 mg PO DAILY RF: 0 amlodipine 10 mg tablet 10 mg PO DAILY RF: 0 potassium chloride 10 mEq capsule, extended release 10 meq PO BID RF: 0 ropinirole 0.5 mg tablet 0.5 mg PO BID PRN (Reason: restless legs) RF: 0 ropinirole 1 mg tablet 1 mg PO HS RF: 0 magnesium oxide 400 mg magnesium capsule 400 mg PO BID RF: 0 PreserVision AREDS [id number]-[id number] capsule 1 cap PO BID RF: 0 ibuprofen 200 mg capsule 200 mg PO Q6H PRN (Reason: Pain) RF: 0 gabapentin 100 mg capsule 100 mg PO TID Qty: 90 RF: 2 multivitamin Tablet 1 tab PO DAILY RF: 0 Probiotic 3 billion cell Capsule 0 mmu cells PO DAILY RF: 0 Discontinued furosemide 20 mg tablet 20 mg PO DAILY PRN (Reason: Edema) RF: 0 lisinopril-hydrochlorothiazide 20-25 mg Tablet 1 tab PO DAILY RF: 0 metoprolol succinate 25 mg Tablet Extended Release 24 Hr 25 mg PO DAILY RF: 0 Discharge Orders: Discharge Order (Routine); Ordered 12/21/20 Ordered By: Presley Bond Admission Data Admit Date/Time: 12/19/20 18:53 Attending Provider: Presley oBnd Admit Provider: Alejo Henao Primary Care Provider: Kayce Hansen Other Providers: Rubio Kevin ; Alejo Henao ; Katheryn Castillo
[2020-12-21] MEDS: cefTRIAXone SODIUM 2,000 MG in DEXTROSE 5% 50 ML IV SCH (16:42)
--- NOTE | 2020-12-22 21:11 | Electrocardiogram Report ---
Test Reason : Blood Pressure : / mmHG Vent. Rate : 067 BPM Atrial Rate : 067 BPM P-R Int : 180 ms QRS Dur : 092 ms QT Int : 406 ms P-R-T Axes : 038 042 019 degrees QTc Int : 429 ms Normal sinus rhythm with sinus arrhythmia Anterior infarct , age undetermined Abnormal ECG When compared with ECG of 20-DEC-2020 05:42, No significant change was found Confirmed by Jeff Lawton ([id number]) on 12/22/2020 9:10:46 PM Referred By: Kayce Hansen Confirmed By:Jeff Lawton
[2020-12-25 01:46] LABS: 18KDIGG Band NON-REACTIVE; 23KDIGG Band NON-REACTIVE; 23KDIGM Band REACTIVE; 28KDIGG Band NON-REACTIVE; 30KDIGG Band NON-REACTIVE; 39KDIGG Band NON-REACTIVE; 39KDIGM Band NON-REACTIVE; 41KDIGG Band REACTIVE; 41KDIGM Band NON-REACTIVE; 45KDIGG Band NON-REACTIVE; 58KDIGG Band REACTIVE; 66KDIGG Band NON-REACTIVE; 93KDIGG Band NON-REACTIVE; Lyme Antibodies, WB IgG NEGATIVE (NEGATIVE); Lyme Antibodies, WB IgM NEGATIVE (NEGATIVE)
== END 2020-12-21 17:45 | disposition home or self-care (01) | DRG 868 ==
LOC: ED 16:09 → 2S 18:53 → SUATTDRO 18:53 → 2S 20:13

== ENCOUNTER 2023-01-11 08:36 | Observation (INO) ==
--- NOTE | 2022-11-25 11:37 | PAT Medication Instructions ---
Medication Instructions Date of Service November 25, 2022 Home Medications Medication Instructions Recorded lisinopril 20 mg tablet 20 mg PO QAM #90 tabs 10/07/22 tramadol 50 mg tablet 50 mg PO BID PRN pain #60 tabs 10/07/22 ropinirole 0.5 mg tablet 0.5 mg PO BID PRN restless legs 11/18/22 #180 tabs ropinirole 1 mg tablet 1 mg PO HS #90 tabs 11/18/22 magnesium oxide 400 mg PO BID potassium chloride 10 mEq capsule,extended release 10 meq PO BID vitamins A,C,H-jsjo-ktepek 4,296 mcg-226 mg-90 mg capsule (PreserVision AREDS) 1 cap PO BID multivitamin 1 tab PO QAM ibuprofen 200 mg capsule 600 mg PO PRN PRN Pain lactobacillus combination no.4 3 billion cell capsule (Probiotic) 3,000 mmu cells PO BID melatonin 10 mg tablet 10 mg PO HS PRN Sleep gabapentin 100 mg capsule 200 mg PO .COMPLEX lisinopril 20 mg tablet 20 mg PO QAM tramadol 50 mg tablet 50 mg PO BID PRN pain ropinirole 0.5 mg tablet 0.5 mg PO BID PRN restless legs ropinirole 1 mg tablet 1 mg PO HS amlodipine 5 mg tablet 5 mg PO QAM prednisone 5 mg tablet 5 mg PO QAM ASK your surgeon for instructions ibuprofen 200 mg capsule 600 mg PO PRN PRN Pain STOP taking 2 weeks before surgery (or as soon as possible if surgery is within 2 weeks) vitamins A,C,R-uxvq-qqiyqr 4,296 mcg-226 mg-90 mg capsule (PreserVision AREDS) 1 cap PO BID DO NOT take the morning of surgery magnesium oxide 400 mg PO BID potassium chloride 10 mEq capsule,extended release 10 meq PO BID multivitamin 1 tab PO QAM lactobacillus combination no.4 3 billion cell capsule (Probiotic) 3,000 mmu cells PO BID lisinopril 20 mg tablet 20 mg PO QAM Take morning of surgery With a small sip of water, OTHERWISE NOTHING TO EAT OR DRINK AFTER MIDNIGHT: tramadol 50 mg tablet 50 mg PO BID PRN pain (if needed) ropinirole 0.5 mg tablet 0.5 mg PO BID PRN restless legs (if needed) amlodipine 5 mg tablet 5 mg PO QAM prednisone 5 mg tablet 5 mg PO QAM Take evening before surgery magnesium oxide 400 mg PO BID potassium chloride 10 mEq capsule,extended release 10 meq PO BID lactobacillus combination no.4 3 billion cell capsule (Probiotic) 3,000 mmu cells PO BID melatonin 10 mg tablet 10 mg PO HS PRN Sleep (if needed) gabapentin 100 mg capsule 200 mg PO .COMPLEX tramadol 50 mg tablet 50 mg PO BID PRN pain (if needed) ropinirole 0.5 mg tablet 0.5 mg PO BID PRN restless legs (if needed) ropinirole 1 mg tablet 1 mg PO HS Other Notes If you have any questions please call us at [phone] or [phone] or [phone] or [phone]
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
[~2023-01-11 08:36] MED LIST changes: +ACETAMINOPHEN 500 MG TAB PO SCH; -ATV/1 PO; +BUPIVACAINE 0.5 % 5 MG/1 ML PF 10ML VIAL ONE; -CHOL1TAB42 PO; +FAMOTIDINE 20 MG TAB PO SCH; +GABAPENTIN 600 MG DOSE PO SCH; -LISI-788 PO; +LR 15ML/HR IV SCH; +LR 60ML/HR IV SCH; -MAGN400C2 PO; -MULT-190 PO; -NRV5 PO; +ORTHO JOINT MIX INFIL SCH; -POTA10TA30 PO; -PRED-301 PO; -ROPI0.5T15 PO; -ROPI1TAB PO; +ROPIVACAINE 0.5% 5 MG/ML 30 ML VIAL ONE; +TRANEXAMIC ACID 1,000 MG **IV Intra-op IV SCH; +TRANEXAMIC ACID 1,000 MG **IV Pre-op IV SCH; +ceFAZolin 2000MG 2,000 MG/15 ML SYR IV SCH; +dexAMETHasone 4 MG TAB PO SCH
--- NOTE | 2023-01-11 10:58 | History & Physical Bridge Note ---
Date of Service January 11, 2023 History & Physical Bridge Note I have examined the patient, reviewed the History & Physical and in the interval since the performance of the History & Physical I have noted the following changes of clinical significance: no changes noted
[2023-01-11] MEDS ORDERED: fentaNYL citrate PF 100 MCG/2 ML VIAL IV PRN (11:06)
[2023-01-11] MEDS ORDERED: ATROPINE SULFATE 0.1 MG/ML 10ML SYR IV PRN (11:06)
[2023-01-11] MEDS ORDERED: ePHEDrine sulfate 50 MG/ML AMP IV PRN (11:06)
[2023-01-11] MEDS ORDERED: ONDANSETRON INJ 2 MG/ML 2 ML VIAL IV PRN ×2 (11:06→14:53)
[2023-01-11] MEDS ORDERED: BUPIVACAINE 0.5 % 5 MG/1 ML PF 10ML VIAL ONE (11:28)
[2023-01-11] MEDS ORDERED: ORTHO JOINT ANESTHETIC ONE (11:56)
[2023-01-11] MEDS ORDERED: fentaNYL citrate PF 100 MCG/2 ML VIAL ONE (12:04)
--- NOTE | 2023-01-11 13:17 | Operative Report ---
PG Post Operative Report Pre & Post Diagnosis Operation Date: 01/11/23 11:15 Pre-Op Diagnosis: Osteoarthritis of the left shoulder with tendinopathy long head of biceps tendon Post-Op Diagnosis: Osteoarthritis of left shoulder with tendinopathy long head of the biceps tendon I identified the patient and participated in the time-out.: Yes Procedure Operation Date: 01/11/23 11:15 Actual Procedures p Left Reverse Total Shoulder Arthroplasty(Left) with open biceps tenodesis as a distinct and separate procedure (modifier 59)- Gildardo Cha DO Surgeon Gildardo Cha DO Truckload Checker Gildardo Kohli PA-C Estimated Blood Loss 150 Findings Consistent with Post-Op Diagnosis Specimens Left humeral head Description of Procedure A CPT code modifier 59: The long head of the biceps tendon was enlarged and inflamed consistent with tendinopathy. A tenodesis was opted. This was a separate and distinct portion of the procedure. For these reasons, a CPT code modifier 59 will be added to this case. Implants used: I used a Biomet Comprehensive reverse total shoulder arthroplasty system with a size 12 press fit micro humeral stem, a +6 offset humeral tray and a standard humeral bearing, a 25 mm small augment baseplate with a 6.5 mm central screw and superior and inferior locking screws, and a size 40 mm eccentric glenosphere. Radha arrived at [facility] for the above procedure. She was seen in the preoperative holding area and the operative extremity was identified and signed. She was given a preoperative antibiotic, TXA, and an interscalene nerve block. She was taken back to the operating room, laid on table in supine position, and put under general anesthesia. She was then put into the beachchair position. The shoulder was then prepped and draped in sterile fashion. A timeout was done and the patient and the operative extremity was properly identified. A deltopectoral approach was used. Dissection was taken down through the fascia and the deltoid was retracted laterally and the conjoined tendon was retracted medially. The anterior shoulder was exposed. The biceps groove was opened up and the biceps tendon was examined extensively. The biceps tendon demonstrated enlargement and inflammatory changes consistent with longstanding inflammation in the context of osteoarthritis and cuff arthropathy. The long head of the biceps tendon was then tenodesed to the upper border of the pectoralis major. This was a separate and distinct portion of the procedure. The subscapularis was then directly released off the lesser tuberosity with a peel technique. The inferior capsule was released and the humeral head was dislocated. A canal finding reamer was sent down the center of the humeral canal. Sequential reaming up to a size 12 reamer was done. Off that reamer, a proximal humeral resection guide was placed. The proximal humerus was resected at 135 of inclination and 25 of retroversion. Osteophytes were then removed and the glenoid was exposed. Time was spent doing a complete capsular and labral release. The glenoid guide was then placed in the inferior aspect of the glenoid. A 3.2 mm Steinmann pin was then placed into the glenoid vault at 10 of inclination. The glenoid baseplate was then reamed. The final size 25 mm small augment baseplate was then impacted in the place. A 6.5 mm central screw was then placed followed by superior and inferior locking screws. A 40 eccentric glenosphere was then impacted into place. Surrounding soft tissues were then injected with 100 cc an orthopedic pain control cocktail. The proximal humerus was then exposed. Sequential broaching of the humerus up to a size 12 broach was done. Off that broach a +6 offset humeral tray was trialed. The shoulder was then reduced, brought through a full range of motion, and felt to be stable. The shoulder was then dislocated and the broach was removed. The final size 12 standard micro press-fit humeral stem was then impacted into place. A humeral bearing was then snapped onto a +6 offset humeral tray. The humeral tray was then impacted onto the humeral stem. The shoulder was once again reduced, brought through a full range of motion, and felt to be stable. The subscapularis was then tenodesed back to the lesser tuberosity with transosseous FiberWire sutures and side to side sutures with the arm in 45 of external rotation. A dilute betadyne lavage was then done for 3 minutes. The joint was then irrigated with normal saline solution. Hemostasis was obtained. The interval was closed with 2-0 Vicryl suture. The skin was then closed with 2-0 Vicryl and jacqueline. A Silverlon dressing was placed and the arm was rested in a regular arm sling. She was then extubated and transferred to a hospital bed. She taken to the postanesthesia care unit in stable condition. She tolerated the procedure well. Gildardo Kohli PA-C, was present for the entire procedure. He was critical for patient positioning, prepping, draping, retraction exposure, wound closure and application of sterile dressing. I attest to the content of the Intraoperative Record and any orders documented therein. Any exceptions are noted below.
[2023-01-11] MEDS ORDERED: SUGAMMADEX SODIUM 200 MG/2 ML VIAL IV ONE (13:31)
[2023-01-11] MEDS ORDERED: PHENYLEPHRINE HCL 10 MG/ML VIAL ONE (13:55)
[2023-01-11] MEDS ORDERED: ONDANSETRON INJ 2 MG/ML 2 ML VIAL ONE (13:56)
[2023-01-11] MEDS ORDERED: DEXAMETHASONE SOD INJ 4 MG/ML VIAL ONE (13:56)
--- NOTE | 2023-01-11 14:28 | XRay Report ---
XR shoulder LT min 2V routine CLINICAL HISTORY: Post shoulder surgery TECHNIQUE: 3 views of the left shoulder were obtained. Comparison: Comparison is made to a frontal radiograph 10/26/2022 FINDINGS: Patient is status post shoulder arthroplasty with expected postsurgical changes including soft tissue swelling and subcutaneous emphysema. No periarticular lucency or hardware fracture is seen. IMPRESSION: Expected postoperative appearance status post placement of shoulder arthroplasty. ACT 112: Negative or not required by law. Electronically signed by: Jagjit Duenas M.D. 01/11/2023 2:26 PM
--- NOTE | 2023-01-11 14:37 | Anesthesiology Progress Note ---
Date of Service January 11, 2023 Anesthesia Post Procedure Vital Signs Vital Signs: Temp Pulse Pulse Resp BP Pulse Ox O2 Del Method 01/11/23 14:15 73 20 124/58 L 95 Room Air 01/11/23 14:05 74 18 115/65 94 Room Air 01/11/23 13:55 73 19 128/61 100 Oxymask 01/11/23 13:47 36.4 C L 75 19 133/59 L 100 Oxymask 01/11/23 09:37 36.7 C 64 20 204/68 H 98 Room Air O2 Flow Rate 01/11/23 14:15 01/11/23 14:05 01/11/23 13:55 13 01/11/23 13:47 13 01/11/23 09:37 Transfer of Care Handoff Completed per policy Notes Mental Status: alert / awake / arousable and participated in evaluation Patient Amnestic to Procedure: Yes Nausea / Vomiting: adequately controlled Pain: adequately controlled Airway Patency, RR, SpO2: stable & adequate BP & HR: stable & adequate Hydration State: stable & adequate Anesthetic Complications: no major complications apparent and Pt Satisfied with anesthetic care
[2023-01-11] MEDS ORDERED: METOCLOPRAMIDE HCL INJ 5 MG/ML 2 ML VIAL IV PRN (14:53)
[2023-01-11] MEDS ORDERED: HYDROmorphone INJ 0.5 MG/0.5 ML SYR IV PRN (14:53)
[2023-01-11] MEDS ORDERED: bisacodyL 10 MG SUPP PR PRN (14:53)
[2023-01-11] MEDS ORDERED: oxyCODONE HCL IR 5 MG TAB (IMMEDIATE RELEASE) PO PRN (14:53)
[2023-01-11] MEDS ORDERED: rOPINIRole HCL 0.25 MG TABLET PO PRN (14:53)
[2023-01-11] MEDS ORDERED: MAGNESIUM HYDROXIDE SUSP 30 ML UDC PO PRN (14:53)
[2023-01-11] MEDS ORDERED: SODIUM CHLORIDE 0.9% 1000ML 1,000 ML IV SCH (14:53)
[2023-01-11] MEDS ORDERED: NALOXONE HCL 0.4 MG/1 ML VIAL/CARP IV PRN (14:53)
[2023-01-11] MEDS: ACETAMINOPHEN 500 MG TAB PO SCH ×2 (15:23→23:49)
[2023-01-11] MEDS: KETOROLAC TROMETHAMINE 15 MG/ML VIAL IV SCH ×2 (18:01→23:49)
[2023-01-11] MEDS: ceFAZolin 2000MG 2,000 MG/15 ML SYR IV SCH (20:16)
[2023-01-11] MEDS: GABAPENTIN 100 MG CAP PO SCH (20:16)
[2023-01-11] MEDS: SENNA 8.6 MG TAB PO SCH (20:16)
[2023-01-11] MEDS: DOCUSATE SODIUM 100 MG CAP PO SCH (20:17)
[2023-01-11] MEDS: rOPINIRole HCL 1 MG TABLET PO SCH (20:17)
[2023-01-11] MEDS ORDERED: NON-FORMULARY MEDICATION (Vitamins A,C,E-Zinc-Copper [Preservision Areds] 14,320-226-200 u PO SCH (21:00)
[2023-01-12] MEDS: ceFAZolin 2000MG 2,000 MG/15 ML SYR IV SCH (04:13)
[2023-01-12] MEDS: ACETAMINOPHEN 500 MG TAB PO SCH ×3 (05:30→21:02)
[2023-01-12] MEDS: KETOROLAC TROMETHAMINE 15 MG/ML VIAL IV SCH ×4 (05:30→21:41)
--- NOTE | 2023-01-12 06:57 | Orthopedic Progress Note ---
Date of Service January 12, 2023 Assessment & Plan (1) Status post reverse total replacement of left shoulder: Overall she is doing very well. She is not having much pain in the left shoulder. She will be seen by physical therapy today for ambulation and range of motion exercises. She can be discharged home later today if she is able to void. She will follow-up with orthopedics then in 2 weeks. Matthew Garcia was seen and examined at bedside this morning. Overall she is doing fairly well. She is not having any pain in the left shoulder. She was having some trouble voiding last night and required a straight catheter. Otherwise she has no complaints.. Review of Systems All systems reviewed & are unremarkable except as noted in HPI & below. Physical Exam On physical examination of the left shoulder, the dressing is clean and dry. She does have some ecchymosis down her left arm. She is wearing her sling as instructed.. Results & Data Results & Data Laboratory Results . Diagnostic Findings Postoperative x-rays of the left shoulder show the prosthesis to be in anatomic alignment without any evidence of fracture, screws, or loosening.. PG Care Time/CCT Total # of Minutes Spent Total Time Spent with Patient: Total time spent is greater than 50% in coordination of care (as documented) at patient's floor/unit and/or counseling patient: Coding Level of Care Code 30450 Post Operative Follow-Up Diagnoses Status post reverse total replacement of left shoulder Z96.612
[2023-01-12] MEDS: DOCUSATE SODIUM 100 MG CAP PO SCH ×2 (09:26→21:01)
[2023-01-12] MEDS: amLODIPine BESYLATE 5 MG TAB PO SCH (09:27)
[2023-01-12] MEDS: lisinopril 20 MG TAB PO SCH (09:27)
[2023-01-12] MEDS: predniSONE 5 MG TAB PO SCH (09:27)
[2023-01-12] MEDS: MULTIVITAMIN TAB PO SCH (09:27)
[2023-01-12] MEDS: GABAPENTIN 100 MG CAP PO SCH ×2 (09:28→21:02)
[2023-01-12] MEDS: rOPINIRole HCL 1 MG TABLET PO SCH (21:01)
[2023-01-12] MEDS: SENNA 8.6 MG TAB PO SCH (21:01)
[2023-01-13] MEDS: ACETAMINOPHEN 500 MG TAB PO SCH (06:32)
[2023-01-13] MEDS: KETOROLAC TROMETHAMINE 15 MG/ML VIAL IV SCH (06:33)
--- NOTE | 2023-01-13 07:37 | Orthopedic Progress Note ---
Date of Service January 13, 2023 Assessment & Plan (1) Status post reverse total replacement of left shoulder: Overall she is doing much better. He has not she was able to urinate yesterday. She is not having much pain in the left shoulder. She can be discharged home later today. She will follow-up with orthopedics in 2 weeks. Matthew Garcia was seen and examined at bedside this morning. Overall she is doing very well. She was able to urinate yesterday. She is not having much pain in her left shoulder. She has no complaints.. Review of Systems All systems reviewed & are unremarkable except as noted in HPI & below. Physical Exam On physical examination left shoulder, the dressing is clean and dry. She is wearing her sling as instructed. She has active motion of her hand and wrist.. Results & Data Results & Data Laboratory Results . Diagnostic Findings . PG Care Time/CCT Total # of Minutes Spent Total Time Spent with Patient: Total time spent is greater than 50% in coordination of care (as documented) at patient's floor/unit and/or counseling patient: Coding Level of Care Code 69137 Post Operative Follow-Up Diagnoses Status post reverse total replacement of left shoulder Z96.612
--- NOTE | 2023-01-13 07:39 | Discharge Summary ---
Date of Service January 13, 2023 Admission HPI (Per Admitting) Radha is a pleasant 87-year-old female who has been dealing with chronic bilateral shoulder pain. She has been seeing my partner, Dr. Muñoz. She has had multiple injections in both shoulders and she does physical therapy and she has a private therapist that she works with. Unfortunately, her left shoulder is becoming unbearable. She is having trouble doing anything away from body or up overhead. She is having trouble sleeping at night. After failed conservative treatment, she has elected proceed with a left reverse shoulder arthroplasty. Admission Exam (Per Admitting) On physical examination of left shoulder, she is about 120 degrees forward elevation 100 degrees of abduction. She has crepitus with range of motion. Pain over the glenohumeral joint line.. Principal Diagnosis Same as "Discharge Diagnosis" noted below under Discharge Instructions. Discharge Exam On physical examination left shoulder, the dressing is clean and dry. She is wearing her sling as instructed. She has active motion of her hand and wrist.. Discharge Data Procedures Performed Operation Date: 01/11/23 11:15 Actual Procedures p Left Reverse Total Shoulder Arthroplasty(Left) - Gildardo Cha DO Ordered Studies 01/11/23 05:00 US - OR guided needle placemen Routine Hospital Course (1) Status post reverse total replacement of left shoulder: On January 11, 2023 Radha arrived to [facility] and underwent a left reverse shoulder replacement without complication. She had a general anesthetic and a left interscalene nerve block. Postoperatively she was placed in an arm sling and transferred to the general orthopedic floors. Her hospital course was uneventful. On postop day 1, her vital signs were stable and her pain was well controlled. She was having some difficulty urinating. We decided to keep her throughout the day. On postop day #2 she was doing better. She had fully urinated. She was not having much pain in the shoulder. She was seen by physical therapy for ambulation and range of motion exercises. She was then discharged home. She will follow-up with orthopedics in 2 weeks. PG Care Time/CCT Total # of Minutes Spent Total Time Spent with Patient: Total time spent is greater than 50% in coordination of care (as documented) at patient's floor/unit and/or counseling patient: Discharge Plan Discharge Items Patient Disposition: Home - Home Health Services Reason For Visit: DJD Left Shoulder Discharge Diagnosis: Left reverse shoulder replacement Activity: Per Instructions section Non-emergency contact: Surgeon Call non-emergency contact if: your wound has increased redness and your wound has increased drainage Follow-up/Referrals: Michelle Miller MD [Primary Care Provider] - Diet: Regular Addtl Attending Provider Instructions: Activity and Therapy Recommendations: * If you are using [facility] then therapy will be provided at your home until they feel you have accomplished all of your goals. * If you are using [facility] then Physical Therapy will be provided until they feel you are ready to start Outpatient Physical Therapy. * If you are not using home therapy then Outpatient Physical Therapy should start about 3-5 days from your day of surgery. Therapy will last about 8-12 weeks * Wear your sling for 3 weeks, unless otherwise instructed. You may remove your sling to shower and to dress, but otherwise, you should be in your sling at all times, including while sleeping * The shoulder replacement is very stable and you can use your hand while in the sling * You were shown a series of exercises in the hospital. Do these exercises daily including the exercises you were shown in physical therapy. Medications: * Narcotic You will likely be sent home from the hospital with a prescription for the narcotic pain medication that worked best throughout your stay. * Other medications may be prescribed for specific circumstances. If you have any questions, please call the office at . * Resume previous home medications unless otherwise instructed Dressing Care: Leave the Silverlon dressing in place for 7 days. After 7 days you may remove the dressing. If the incision is not draining then you may leave the jacqueline open to air. If there is a little bit of drainage or if the jacqueline are getting stuck on your clothing then cover the incision with a dry dressing. The jacqueline will be removed at your 2 week follow-up appointment. Showering: You may shower with the Silverlon dressing in place. Do not let the shower spray hit the dressing directly. Pat the Silverlon dressing dry. If the dressing becomes wet underneath, then simply remove the dressing. Keep the incision dry until you are 7 days out from the day of surgery. After 7 days you may remove the Silverlon dressing and shower with the jacqueline exposed. Let soapy water run over the jacqueline and pat them dry. Do not scrub or soak the incision. Things To Watch For: * Drainage from the incision site that occurs more than one week after your surgery. * Increased redness at the incision site. * Fever above 102 degrees Fahrenheit. * Unusual chest pain or shortness of breath. * Call [facility] at with any of the above problems Follow-Up Visit: Follow-up with Dr. Cha's PA (Gildardo Kohli) 2-3 weeks after your day of surgery. He will remove your jacqueline and answer any questions. If you have any additional questions or concerns, Dr Cha is usually in the office at the same time and will be available An appointment was probably scheduled when you signed-up for surgery in the office. If you have any questions call More detailed instructions as well as Frequently Asked Questions were provided in a folder by our office when you signed-up for surgery. Please review these instructions when you get home. If you have any further questions or concerns, please feel free to call the office at [phone] Pending Studies at Discharge: No Stand-Alone Forms: My [facility], Smoking Cessation Medications and DC Order Prescriptions: New oxycodone 5 mg capsule 5 mg PO Q6H PRN (Reason: pain) Qty: 30 0RF Continued magnesium oxide 400 mg magnesium capsule 400 mg PO BID PreserVision AREDS [phone] [id number] capsule 1 cap PO BID ibuprofen 200 mg capsule 600 mg PO PRN PRN (Reason: Pain) ropinirole 0.5 mg tablet 0.5 mg PO BID PRN (Reason: restless legs) Qty: 180 1RF ropinirole 1 mg tablet 1 mg PO HS Qty: 90 1RF amlodipine 5 mg tablet 5 mg PO QAM Qty: 90 1RF lisinopril 20 mg tablet 20 mg PO QAM Qty: 90 1RF prednisone 5 mg tablet 5 mg PO QAM Qty: 90 1RF gabapentin 100 mg capsule 200 mg PO .COMPLEX Rx Instructions: 100 mg PO QAM, 200mg QPM melatonin 10 mg tablet 10 mg PO HS PRN (Reason: Sleep) multivitamin Tablet 1 tab PO QAM Probiotic 3 billion cell capsule 3,000 mmu cells PO BID Discontinued tramadol 50 mg tablet 50 mg PO BID PRN (Reason: pain) Qty: 60 0RF Admission Data Admit Date/Time: 01/11/23 13:46 Attending Provider: Gildardo Cha Admit Provider: Gildardo Cha Primary Care Provider: Michelle Miller V.
[2023-01-13] MEDS: lisinopril 20 MG TAB PO SCH (08:08)
[2023-01-13] MEDS: amLODIPine BESYLATE 5 MG TAB PO SCH (08:08)
[2023-01-13] MEDS: GABAPENTIN 100 MG CAP PO SCH (08:08)
[2023-01-13] MEDS: predniSONE 5 MG TAB PO SCH (08:08)
[2023-01-13] MEDS: MULTIVITAMIN TAB PO SCH (08:08)
[2023-01-13] MEDS: DOCUSATE SODIUM 100 MG CAP PO SCH (08:09)
== END 2023-01-13 12:22 | disposition home health service (06) ==
LOC: 3E 08:36 → ASU 08:36

== ENCOUNTER 2025-05-07 07:14 | Observation (INO) ==
--- NOTE | 2025-04-10 11:57 | PAT Medication Instructions ---
Medication Instructions Date of Service April 10, 2025 Home Medications Medication Instructions Recorded calcitriol 0.25 mcg capsule 0.25 mcg PO DAILY #30 caps 09/11/24 ropinirole 1 mg tablet 1 mg PO HS #90 tabs 10/22/24 RSVPreF3 antigen-AS01E 0.5 ml IM ONCE #1 ea 10/27/24 adjuvant(PF) 120 mcg/0.5 mL IM suspension, kit tramadol 50 mg tablet 50 mg PO BID PRN pain #60 tabs 10/27/24 ibandronate 150 mg tablet 150 mg PO MONTHLY #3 tabs 12/25/24 prednisone 5 mg tablet 5 mg PO QAM #90 tabs 01/08/25 potassium chloride 10 mEq 10 meq PO BID #180 tabs 02/07/25 tablet,extended release ropinirole 0.5 mg tablet 0.5 mg PO BID PRN restless legs 03/07/25 #180 tabs hydrochlorothiazide 25 mg tablet 25 mg PO QAM #90 tabs 03/19/25 PreserVision AREDS) 1 cap PO BID melatonin 10 mg tablet 10 mg PO HS PRN Sleep magnesium oxide 400 mg PO BID mecobalamin (vitamin B12) 1,000 mcg chewable tablet 1,000 mcg PO DAILY multivitamin 1 tab PO DAILY calcitriol 0.25 mcg capsule 0.25 mcg PO DAILY cholecalciferol (vitamin D3) 50 mcg (2,000 unit) capsule 50 mcg PO BID lactobacillus combination no.4 3 billion cell capsule (Probiotic) 3,000 mmu cells PO DAILY ropinirole 1 mg tablet 1 mg PO HS RSVPreF3 antigen-AS01E adjuvant(PF) 120 mcg/0.5 mL IM suspension, kit 0.5 ml IM ONCE tramadol 50 mg tablet 50 mg PO BID PRN pain ibandronate 150 mg tablet 150 mg PO MONTHLY prednisone 5 mg tablet 5 mg PO QAM potassium chloride 10 mEq tablet,extended release 10 meq PO BID ropinirole 0.5 mg tablet 0.5 mg PO BID PRN restless legs hydrochlorothiazide 25 mg tablet 25 mg PO QAM gabapentin 100 mg capsule 100 - 200 mg PO UD lisinopril 40 mg tablet 40 mg PO QAM Continue as directed RSVPreF3 antigen-AS01E adjuvant(PF) 120 mcg/0.5 mL IM suspension, kit 0.5 ml IM ONCE ibandronate 150 mg tablet 150 mg PO MONTHLY STOP taking 2 weeks before surgery (or as soon as possible if surgery is within 2 weeks) PreserVision AREDS) 1 cap PO BID DO NOT take the morning of surgery magnesium oxide 400 mg PO BID mecobalamin (vitamin B12) 1,000 mcg chewable tablet 1,000 mcg PO DAILY multivitamin 1 tab PO DAILY calcitriol 0.25 mcg capsule 0.25 mcg PO DAILY cholecalciferol (vitamin D3) 50 mcg (2,000 unit) capsule 50 mcg PO BID lactobacillus combination no.4 3 billion cell capsule (Probiotic) 3,000 mmu cells PO DAILY potassium chloride 10 mEq tablet,extended release 10 meq PO BID hydrochlorothiazide 25 mg tablet 25 mg PO QAM lisinopril 40 mg tablet 40 mg PO QAM Take morning of surgery With a small sip of water, OTHERWISE NOTHING TO EAT OR DRINK AFTER MIDNIGHT: tramadol 50 mg tablet 50 mg PO BID PRN pain (if needed) prednisone 5 mg tablet 5 mg PO QAM ropinirole 0.5 mg tablet 0.5 mg PO BID PRN restless legs (if needed) gabapentin 100 mg capsule 100 - 200 mg PO UD Take evening before surgery melatonin 10 mg tablet 10 mg PO HS PRN Sleep (if needed) magnesium oxide 400 mg PO BID cholecalciferol (vitamin D3) 50 mcg (2,000 unit) capsule 50 mcg PO BID ropinirole 1 mg tablet 1 mg PO HS tramadol 50 mg tablet 50 mg PO BID PRN pain (if needed) potassium chloride 10 mEq tablet,extended release 10 meq PO BID ropinirole 0.5 mg tablet 0.5 mg PO BID PRN restless legs (if needed) gabapentin 100 mg capsule 100 - 200 mg PO UD Other Notes If you have any questions please call us at [phone] or [phone] or [phone] or [phone]
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
[~2025-05-07 07:14] MED LIST changes: -ACETAMINOPHEN 500 MG TAB PO SCH; -FAMOTIDINE 20 MG TAB PO SCH; -GABAPENTIN 600 MG DOSE PO SCH; -LR 15ML/HR IV SCH; -LR 60ML/HR IV SCH; -ORTHO JOINT MIX INFIL SCH; -ROPIVACAINE 0.5% 5 MG/ML 30 ML VIAL ONE; -TRANEXAMIC ACID 1,000 MG **IV Intra-op IV SCH; -TRANEXAMIC ACID 1,000 MG **IV Pre-op IV SCH; -ceFAZolin 2000MG 2,000 MG/15 ML SYR IV SCH; -dexAMETHasone 4 MG TAB PO SCH
[2025-05-07] MEDS ORDERED: ONDANSETRON INJ 2 MG/ML 2 ML VIAL ONE (07:41)
[2025-05-07] MEDS ORDERED: SUGAMMADEX SODIUM 200 MG/2 ML VIAL IV ONE (07:41)
[2025-05-07] MEDS ORDERED: ROCURONIUM BROMIDE 10 MG/ML 5 ML VIAL IV ONE (07:41)
[2025-05-07] MEDS ORDERED: PROPOFOL IV EMULSION 10 MG/ML 20 ML VIAL IV ONE ×2 (07:41→09:47)
[2025-05-07] MEDS ORDERED: DEXAMETHASONE SOD INJ 4 MG/ML VIAL ONE (07:41)
[2025-05-07] MEDS: dexAMETHasone**PF** 10 MG/ML VIAL IV SCH (07:52)
[2025-05-07] MEDS: ACETAMINOPHEN 500 MG TAB PO SCH ×2 (07:52→14:16)
[2025-05-07] MEDS: GABAPENTIN 300 MG CAP PO SCH (07:52)
[2025-05-07] MEDS: LR 60ML/HR IV SCH (07:52)
[2025-05-07] MEDS: FAMOTIDINE 20 MG TAB PO SCH (07:52)
[2025-05-07] MEDS: LR 15ML/HR IV SCH (07:53)
--- NOTE | 2025-05-07 08:09 | History & Physical Bridge Note ---
Date of Service May 07, 2025 History & Physical Bridge Note I have examined the patient, reviewed the History & Physical and in the interval since the performance of the History & Physical I have noted the following changes of clinical significance: no changes noted
[2025-05-07] MEDS ORDERED: ATROPINE SULFATE 0.1 MG/ML 10ML SYR IV PRN (08:31)
[2025-05-07] MEDS ORDERED: ONDANSETRON INJ 2 MG/ML 2 ML VIAL IV PRN ×2 (08:31→12:23)
[2025-05-07] MEDS: TRANEXAMIC ACID 1,000 MG **IV Pre-op IV SCH (09:04)
[2025-05-07] MEDS ORDERED: ePHEDrine sulfate 50 MG/5 ML SYR ONE (09:49)
[2025-05-07] MEDS: ROPIV 0.5% 246mg, Ketorolac 30mg, EPINEPHrine 0.5mg in NSS INFIL SCH (10:01)
[2025-05-07] MEDS: ORTHO JOINT ANESTHETIC ONE (10:01)
--- NOTE | 2025-05-07 10:35 | Operative Report ---
PG Post Operative Report Pre & Post Diagnosis Operation Date: 05/07/25 09:00 Pre-Op Diagnosis: Right Shoulder Osteoarthritis with tendinopathy long head of the biceps tendon Post-Op Diagnosis: Right Shoulder Osteoarthritis with tendinopathy long head of the biceps tendon I identified the patient and participated in the time-out.: Yes Procedure Operation Date: 05/07/25 09:00 Actual Procedures p Right Reverse Total Shoulder Arthroplasty, Uncemented(Right) with open biceps tenodesis as a distinct and separate procedure (modifier 59)- Gildardo Cha DO Surgeon Gildardo Cha DO Talent Analyst Tonny Kay PA-C Estimated Blood Loss 200 Findings Consistent with Post-Op Diagnosis Specimens Right humeral head Description of Procedure A CPT code modifier 59: The long head of the biceps tendon was enlarged and inflamed consistent with tendinopathy. A tenodesis was opted. This was a separate and distinct portion of the procedure. For these reasons, a CPT code modifier 59 will be added to this case. Implants used: I used a [employer] Comprehensive reverse total shoulder arthroplasty system with a size 12 press fit micro humeral stem, a +6 offset humeral tray and a standard humeral bearing, a 25 mm small augment baseplate with a 6.5 mm central screw and superior and inferior locking screws, and a size 40 mm eccentric glenosphere. Radha arrived at [facility] for the above procedure. She was seen in the preoperative holding area and the operative extremity was identified and signed. She was given a preoperative antibiotic, TXA, and an interscalene nerve block. She was taken back to the operating room, laid on table in supine position, and put under general anesthesia. She was then put into the beachchair position. The shoulder was then prepped and draped in sterile fashion. A timeout was done and the patient and the operative extremity was properly identified. A deltopectoral approach was used. Dissection was taken down through the fascia and the deltoid was retracted laterally and the conjoined tendon was retracted medially. The anterior shoulder was exposed. The biceps groove was opened up and the biceps tendon was examined extensively. The biceps tendon demonstrated enlargement and inflammatory changes consistent with longstanding inflammation in the context of osteoarthritis and cuff arthropathy. The long head of the biceps tendon was then tenodesed to the upper border of the pectoralis major. This was a separate and distinct portion of the procedure. The subscapularis was then directly released off the lesser tuberosity with a peel technique. The inferior capsule was released and the humeral head was dislocated. A canal finding reamer was sent down the center of the humeral canal. Sequential reaming up to a size 12 reamer was done. Off that reamer, a proximal humeral resection guide was placed. The proximal humerus was resected at 135 of inclination and 25 of retroversion. Osteophytes were then removed and the glenoid was exposed. Time was spent doing a complete capsular and labral release. The glenoid guide was then placed in the inferior aspect of the glenoid. A 3.2 mm Steinmann pin was then placed into the glenoid vault at 10 of inclination. The glenoid baseplate was then reamed. The final size 25 mm small augment baseplate was then impacted in the place. A 6.5 mm central screw was then placed followed by superior and inferior locking screws. A 40 mm eccentric glenosphere was then impacted into place. Surrounding soft tissues were then injected with 100 cc an orthopedic pain control cocktail. The proximal humerus was then exposed. Sequential broaching of the humerus up to a size 12 broach was done. Off that broach a +6 offset humeral tray was trialed. The shoulder was then reduced, brought through a full range of motion, and felt to be stable. The shoulder was then dislocated and the broach was removed. The final size 12 micro press-fit humeral stem was then impacted into place. A standard humeral bearing was then snapped onto a +6 offset humeral tray. The humeral tray was then impacted onto the humeral stem. The shoulder was once again reduced, brought through a full range of motion, and felt to be stable. The subscapularis was repaired back to the lesser tuberosity using transosseous FiberWire sutures. A dilute betadyne lavage was then done for 3 minutes. The joint was then irrigated with normal saline solution. Hemostasis was obtained. The interval was closed with 2-0 Vicryl suture. The skin was then closed with 2-0 Vicryl and jacqueline. A Silverlon dressing was placed and the arm was rested in a regular arm sling. She was then extubated and transferred to a hospital bed. She taken to the postanesthesia care unit in stable condition. She tolerated the procedure well. Tonny Kay PA-C, was present for the entire procedure. He was critical for patient positioning, prepping, draping, retraction exposure, wound closure and application of sterile dressing. I attest to the content of the Intraoperative Record and any orders documented therein. Any exceptions are noted below.
--- NOTE | 2025-05-07 11:42 | XRay Report ---
XR shoulder RT min 2V routine CLINICAL HISTORY: Post shoulder surgery COMPARISON: None FINDINGS: Right shoulder prosthesis shows no hardware complication. There is expected soft tissue ga s. Skin jacqueline are present. IMPRESSION: Unremarkable postoperative exam. ACT 112: Negative or not required by law. Electronically signed by: Rubio Asher M.D. 05/07/2025 11:40 AM
[2025-05-07] MEDS ORDERED: NALOXONE HCL 0.4 MG/1 ML VIAL/CARP IV PRN (12:23)
[2025-05-07] MEDS ORDERED: METOCLOPRAMIDE HCL INJ 5 MG/ML 2 ML VIAL IV PRN (12:23)
[2025-05-07] MEDS ORDERED: HYDROmorphone INJ 0.5 MG/0.5 ML SYR IV PRN (12:23)
[2025-05-07] MEDS ORDERED: MAGNESIUM HYDROXIDE SUSP 30 ML UDC PO PRN (12:23)
[2025-05-07] MEDS ORDERED: MELATONIN 3 MG TAB PO PRN (12:25)
[2025-05-07] MEDS: SODIUM CHLORIDE 0.9% 1,000 ML IV SCH (12:26)
[2025-05-07] MEDS: BUPIVACAINE LIPOSOME 1.3% 133 MG/10 ML VIAL ONE (12:28)
[2025-05-07] MEDS: KETOROLAC TROMETHAMINE 15 MG/ML VIAL IV SCH (12:35)
--- NOTE | 2025-05-07 13:46 | Anesthesiology Progress Note ---
Date of Service May 07, 2025 Anesthesia Post Procedure Vital Signs Vital Signs: Temp Pulse Pulse Resp BP Pulse Ox O2 Del Method 05/07/25 12:53 36.3 C L 77 16 162/76 H 93 Room Air 05/07/25 12:23 36.4 C L 73 18 155/74 H 93 Room Air 05/07/25 12:00 36.4 C L 80 16 149/71 H 95 Room Air 05/07/25 11:35 71 18 175/65 H 96 Room Air 05/07/25 11:25 36.4 C L 73 20 174/69 H 94 Room Air 05/07/25 11:15 77 21 175/74 H 94 Room Air 05/07/25 11:05 78 19 178/81 H 95 Room Air 05/07/25 10:58 36.0 C L 73 14 177/74 H 100 Oxymask 05/07/25 07:25 36.7 C 50 L 20 172/84 H 99 Room Air O2 Flow Rate 05/07/25 12:53 05/07/25 12:23 05/07/25 12:00 05/07/25 11:35 05/07/25 11:25 05/07/25 11:15 05/07/25 11:05 05/07/25 10:58 8 05/07/25 07:25 Transfer of Care Handoff Completed per policy Notes Mental Status: alert / awake / arousable and participated in evaluation Patient Amnestic to Procedure: Yes Nausea / Vomiting: adequately controlled Pain: adequately controlled Airway Patency, RR, SpO2: stable & adequate BP & HR: stable & adequate Hydration State: stable & adequate Anesthetic Complications: no major complications apparent and Pt Satisfied with anesthetic care
[2025-05-07] MEDS: DOCUSATE SODIUM 100 MG CAP PO SCH (20:27)
[2025-05-07] MEDS: GABAPENTIN 100 MG CAP PO SCH (20:27)
[2025-05-07] MEDS: SENNA 8.6 MG TAB PO SCH (20:27)
[2025-05-08 04:06] VITALS: O2SAT 95
[2025-05-08 07:08] VITALS: BP 138/64; PULSE 49; RESP 16; TEMP 97.5
[2025-05-08] MEDS: hydroCHLOROthiazide 25 MG TAB PO SCH (08:45)
[2025-05-08] MEDS: GABAPENTIN 100 MG CAP PO SCH (08:45)
[2025-05-08] MEDS: MULTIVITAMIN TAB PO SCH (08:45)
--- NOTE | 2025-05-08 11:07 | Orthopedic Progress Note ---
Date of Service May 08, 2025 Assessment & Plan (1) S/p reverse total shoulder arthroplasty: * Continue Current Treatment * Disposition: home with home services * Daily treatment: Physical Therapy/ Occupational Therapy per protocol * Weight bearing status: non weight bearing on right upper extremity * Continue to monitor for ABLA * Pain control * DVT prophylaxis, ASA * Office/hospital f/u 2 weeks for progress check and staple/suture removal * Stable for discharge from ortho standpoint, per nursing patient has been straight-cathed twice as she has been unable to urine on her own. May be discharged after patient is able to void. Subjective Active Problems: S/p right reverse total shoulder arthroplasty POD 1 89 y/o female s/p right reverse total shoulder arthroplasty with Dr. Cha. Doing well overall, pain managed and improved function. Denies fever/chills, chest pain/SOB, nausea/vomiting. Otherwise no complaints. Patient states her right shoulder has a pain level of zero. . Review of Systems All systems reviewed & are unremarkable except as noted in HPI & below. Physical Exam * General: Alert and oriented, no acute distress * Constitutional: well-developed, well-nourished. * Respiratory: Normal respiratory effort, no distress * Gastrointestinal: No tenderness to palpation, no rigidity or guarding. * Skin: No rash or lesion. * Neurologic: Grossly normal * Musculoskeletal: Right shoulder surgical dressing clean, dry and in place, not removed for exam. Otherwise no obvious deformity or overlying skin changes. Diffuse TTP upper arm and shoulder region. Otherwise no specific tenderness of upper arm, elbow, forearm, wrist/hand. AROM shoulder not assessed. AROM elbow, wrist/hand intact. Sensation intact radial/median/ulnar nerve distributions. Brisk capillary refill. . Results & Data Results & Data Laboratory Results . Diagnostic Findings Shoulder X-Ray 05/07/25 11:03 XR shoulder RT min 2V routine CLINICAL HISTORY: Post shoulder surgery COMPARISON: None FINDINGS: Right shoulder prosthesis shows no hardware complication. There is expected soft tissue gas. Skin jacqueline are present. IMPRESSION: Unremarkable postoperative exam. ACT 112: Negative or not required by law. Electronically signed by: Rubio Asher M.D. 05/07/2025 11:40 AM . PG Care Time/CCT Total # of Minutes Spent Total Time Spent with Patient: Total time spent is greater than 50% in coordination of care (as documented) at patient's floor/unit and/or counseling patient: Coding Level of Care Code 14531 Post Operative Follow-Up Diagnoses S/p reverse total shoulder arthroplasty Z96.619
== END 2025-05-08 13:58 | disposition home or self-care (01) ==
LOC: 3E 07:14 → ASU 07:14